=== PATIENT | male | born 1935 | race Caucasian/White ===

== ENCOUNTER 2016-12-26 17:35 | Inpatient (IN) | payer OTHER ==
[~2016-12-26] VITALS: Ht 167.6 cm; Wt 83.9 kg
[~2016-12-26 17:35] MED LIST: AGGRENOX 25 MG-1 CAP PO; ALLOPURINOL300 M1 PO; ARICEPT10 MG PO; CIPRO 500MG (E500 MG PO; CIPRO 500MG TA500 MG PO; CIPROFLOXACIN500 MG PO; FENOFIBRATE48 MG PO; FINASTERIDE5 MG PO; FLOMAX(MONOGRA0.4 MG PO; FUROSEMIDE20 MG PO; FUROSEMIDE40 M1 PO; GLIPIZIDE ER2.5 M1 PO; GLIPIZIDE5 MG PO; GLUCOPHAGE1000 MG PO; HYDRALAZINE HYD25 MG PO; LEVOTHROID0.05 MG PO; LOPRESSOR 25MG25 MG PO; METFORMIN ER500 MG PO; METOPROLOL SUCC25 MG PO; MOXIFLOXACIN H400 M2 PO; NAMENDA XR14 MG PO; NICARDIPINE PO; PRAVASTATIN SOD40 MG PO; PROSCAR5 MG PO; VITAMIN D50000 IU PO; ZYLOPRIM100 MG PO
--- NOTE | 2016-12-26 17:40 | NUR ---
PT IN RM BIBA DENIES ALL PAIN NO EVIDENCE OF DISTRESS. SWELLING AND DRAINAGE PRESENT TO BLE 2/2 CELLULITIS. VSS.
--- NOTE | 2016-12-26 18:18 | NUR ---
MD SABRINA TO BEDSIDE FOR PT EVAL.
--- NOTE | 2016-12-26 18:48 | NUR ---
MD DARREN AT BEDSIDE FOR PT EVAL.
--- NOTE | 2016-12-26 19:01 | ED ANKLE/FOOT INJURY COMPLAINT ---
History of Present Illness General Chief Complaint: Lower Extremity Injury Stated Complaint: BIBA FOR BILATERAL LOWER LEG ?SWELLING Source: family Exam Limitations: no limitations Vital Signs & Intake/Output Vital Signs & Intake/Output Vital Signs Date Time Temp Pulse Resp B/P B/P Pulse O2 O2 Flow FiO2 Mean Ox Delivery Rate 12/260 97.6 64 18 118/60 96 Room Air 12/265 97.1 70 18 125/58 96 Room Air 12/26 1944 Room Air 12/26 1941 97.0 75 16 123/60 98 Room Air 12/26 1740 97.7 77 18 154/69 97 Room Air Allergies Coded Allergies: Penicillins (SWELLING 05/26/16) Triage Note: PT IN RM BIBA DENIES ALL PAIN NO EVIDENCE OF DISTRESS. SWELLING AND DRAINAGE PRESENT TO BLE 2/2 CELLULITIS. VSS. Triage Nurses Notes Reviewed? yes HPI: 82 yo M brought in to the ED for evaluation of bilateral lower extremity edema and blisters. According to the family the patient has been having these problems for the past couple of weeks. He was evaluated at their PCP office a month ago and was advised to keep the blisters clean, dry and apply bacitracin and was given Lasix for the edema. However, his symptoms have been worsening over the past couple of days. Currently he also has an ulcer on his right dorsal ankle. (KRIS DAHL,[facility]) Reconcile Medications Allopurinol 300 MG TABLET 1 TAB PO DAILY GOUT (Reported) Ergocalciferol (Vitamin D2) (Vitamin D2) 50,000 UNIT CAPSULE 1 CAP PO EVERY 10 DAY SUPPLEMENT (Reported) Finasteride (Proscar) 5 MG TABLET 1 TAB PO QPM BL[facility] (Reported) Furosemide (Lasix) 40 MG TABLET 1 TAB PO BID HEART HEALTH (Reported) Glipizide (Glipizide ER) 2.5 MG TAB.ER.24 1 TAB PO BID DIABETES (Reported) Hydralazine HCl 25 MG TABLET 1 TAB PO BID HTN (Reported) Levothyroxine Sodium (Synthroid) 50 MCG TABLET 1 TAB PO DAILY THYROID ( Reported) Memantine HCl (Namenda XR) 14 MG CAP.SPR.24 1 CAP PO DAILY ALZHEIMERS ( Reported) Metformin HCl (Metformin HCl ER) 500 MG TAB.ER.24H 2 TAB PO BID DIABETES ( Reported) Metoprolol Succinate 25 MG TAB 1 TAB PO DAILY HTN (Reported) Nifedipine (Nifedipine ER) 30 MG TAB.ER.24 1 TAB PO DAILY HTN (Reported) Pravastatin Sodium (Pravachol) 40 MG TABLET 1 TAB PO DAILY HIGH CHOLESTROL ( Reported) Tamsulosin HCl (Flomax) 0.4 MG CAP.ER.24H 1 CAP PO QPM [facility] ( Reported) (LUIS BURGOS MD) Past History Travel History Traveled to [place] past 21 day No Medical History Any Pertinent Medical History? see below for history Neurological: Alzheimer's disease EENT: NONE Cardiovascular: CHF, hypertension Respiratory: NONE Gastrointestinal: NONE Hepatic: NONE Renal: NONE Musculoskeletal: NONE Psychiatric: NONE Endocrine: diabetes, hypothyroidism Blood Disorders: NONE Cancer(s): NONE LOCATION MAN/Reproductive: NONE History of MRSA: No History of VRE: No History of CDIFF: No Pneumonia Vaccine: 04/21/15 Surgical History Surgical History: non-contributory Psychosocial History Who do you live with Patient/Self Services at Home Home Health Aide What is your primary language Fijian Tobacco Use: Quit >30 days ago Family History Family History, If Any: Relation not specified for: *No pertinent family history Hx Contributory? No (SABRINA PONCE MD) Review of Systems Review of Systems Constitutional: Reports: no symptoms. Respiratory: Reports: no symptoms. Cardiovascular: Reports: no symptoms. GI: Reports: no symptoms. Genitourinary: Reports: no symptoms. Musculoskeletal: Reports: no symptoms. Skin: Reports: see HPI. (SABRINA PONCE MD) Review of Systems EENTM: Reports: no symptoms. Neurological/Psychological: Reports: no symptoms. Hematologic/Endocrine: Reports: no symptoms. Immunologic/Allergic: Reports: no symptoms. All Other Systems: Reviewed and Negative (LUIS BURGOS MD) Physical Exam Physical Exam General Appearance: well developed/nourished, no apparent distress Head: atraumatic, normal appearance Eyes: Bilateral: normal appearance. Ears, Nose, Throat: moist mucus membranes Cardiovascular/Respiratory: normal breath sounds Leg/Knee/Thigh Left: swelling, blisters on lower extremity Leg/Knee/Thigh Right: swelling, blisters and ulcer on right lower extremity (SABRINA PONCE MD) Physical Exam Neck: normal inspection, supple, full range of motion Back: normal inspection, normal range of motion Ankle Left: normal range of motion Ankle Right: normal range of motion Foot Left: normal range of motion Foot Right: normal range of motion Reflexes: 2+: knee (R), knee (L), ankle (R), ankle (L). Neuro/Vascular: normal motor function, normal sensation Tendon: normal tendon function Psychiatric: awake, alert, oriented x 3 (HIPONA ,LUIS) Progress Differential Diagnosis: cellulitis, peripheral edema, venous ulcers Plan of Care: Orders Procedure Date/time Status Consistent Carbohydrate 3 12/27 B Active CBC WITHOUT DIFFERENTIAL 12/27 599 Active BASIC ELECTROLYTES PLUS BUN&CR 12/27 599 Active Turn and Reposition 12/26 2230 Active Skin Integrity Protocol 12/26 2230 Active Skin/Pressure Ulcer Assess (Sk 12/26 2230 Active Vital Signs 12/26 2229 Active Teach/Educate 12/26 2229 Active Pain Treatment and Response 12/26 2229 Active Nutritional Intake, Monitor 12/26 2229 Active Isolation 12/26 2229 Active Intake & Output 12/26 2229 Active Patient Care Conference 12/26 2229 Active Activity/Ambulation 12/26 2229 Active FingerStick- Glucose 12/26 2124 Active Elevate 12/26 2124 Active Intake & Output 12/26 2114 Complete Pathway - chart 12/26 2106 Active Patient Data 12/26 2106 Active Code Status 12/26 2106 Active OXYGEN SETUP (GEN) 12/26 2037 Active Saline Lock 12/26 2037 Active Admit to inpatient 12/26 2037 Active Vital Signs 12/26 2037 Active Activity/Ambulation 12/26 2037 Complete Code Status 12/26 2037 Complete Patient Data 12/27 2015 Active Add-on Test (ER Only) 12/26 1940 Active B-TYPE NATRIURETIC PEP (BNP) 12/26 193 Complete COMPREHENSIVE METABOLIC PANEL 12/26 1856 Complete CBC WITHOUT DIFFERENTIAL 12/26 1856 Complete PT Evaluate & Treat 12/26 UNK Active House Staff 12/26 UNK Active Intake & Output 12/26 UNK Active Activity/Ambulation 12/26 UNK Active Current Medications Sig/Jimmie Start time Last Medication Dose Stop Time Status Admin Donepezil HCl 10 MG QPM 12/27 2200 AC (Aricept) Finasteride 5 MG QPM / 2200 AC (Proscar) Tamsulosin HCl 0.4 MG QPM / 2200 AC (Flomax) Pravastatin Sodium 40 MG 1700 12/27 1700 AC (Pravachol) Allopurinol 300 MG DAILY 12/27 1000 AC (Zyloprim) Dipyridamole/Aspirin 1 CAP BID 12/27 1000 AC (Aggrenox) Furosemide 20 MG DAILY 12/27 1000 AC (Lasix) Hydralazine HCl 25 MG BID 12/27 1000 AC (Apresoline) Memantine 5 MG BID 12/27 1000 AC (Namenda) Metoprolol Tartrate 25 MG DAILY 12/27 999 AC (Lopressor) Insulin Aspart 0 TIDAC 12/28 799 AC (NovoLOG) Levothyroxine Sodium 0.05 MG DAILY AC 12/27 07 AC (Synthroid) Clindamycin 300 MG Q6 12/26 2359 AC (Cleocin 150MG Cap) Enoxaparin Sodium 40 MG DAILY 12/26 2106 AC 12/26 (Lovenox) 2122 Laboratory Tests 12/26/16 1937: Anion Gap 14, Estimated GFR > 60, BUN/Creatinine Ratio 23.6, Glucose 213 H, Calcium 9.0, Total Bilirubin 0.3, AST 14 L, ALT 31, Alkaline Phosphatase 115, Haj-K-Csghsbnruyf Pept 177 H, Total Protein 6.9, Albumin 3.7, Globulin 3.2, Albumin/Globulin Ratio 1.2, CBC w Diff NO MAN DIFF REQ, RBC 3.47 L, MCV 91.4, MCH 29.1, RDW 15.7 H, MPV 6.9 L, Gran % 76.7 H, Lymphocytes % 16.4 L, Monocytes % 4.4, Eosinophils % 2.2, Basophils % 0.3, Absolute Granulocytes 8.3 H, Absolute Lymphocytes 1.8, Absolute Monocytes 0.5, Absolute Eosinophils 0.2, Absolute Basophils 0, PUBS MCHC 31.9 L Comments: 12/26/2016 7:26:22 PM 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 Labs pending. (DARREN DAHL,[facility]) Departure Departure Disposition: OTHER PYSCH Condition: Stable Clinical Impression Primary Impression: Ulcer Secondary Impressions: Peripheral edema Referrals: DOM MORA MD (PCP/Family) Departure Forms: Customer Survey General Discharge Information (KRIS DAHL,SABRINA) Admission Note Spoke With: KELSI CRAIG MD Documentation of Exam: Documentation of any treatments & extenuating circumstances including Concerns Regarding Discharge (functional status, medication knowledge or non-compliance, living conditions, etc.) that warrant an admission rather than observation: IV antibiotics serial lab exams medication adjustment IV diuresis continuing care discharge planning Resident Co-Sign Statement Statement: ED Attending supervision documentation- x I saw and evaluated the patient. I have also reviewed all the pertinent lab results and diagnostic results. I agree with the findings and the plan of care as documented in the Resident's documentation. [] I have reviewed the ED Record and agree with the Resident's documentation. [] Additions or exceptions (if any) to the Resident's note and plan are summarized below: [] (AUBREY DAHL,LUIS)
--- NOTE | 2016-12-26 19:41 | NUR ---
LAB SENT. LAV, BLUE, SST X2
[2016-12-26 19:52] LABS: ABSOLUTE BASOPHIL COUNT 0 /CUMM (0.0-0.2); ABSOLUTE EOSINOPHIL COUNT 0.2 /CUMM (0.0-0.7); ABSOLUTE GRANULOCYTE CT 8.3 /CUMM (1.4-6.5); ABSOLUTE LYMPH COUNT 1.8 /CUMM (1.2-3.4); ABSOLUTE MONOCYTE COUNT 0.5 /CUMM (0.10-0.60); BASOPHIL % 0.3 % (0.0-2.0); EOSINOPHIL % 2.2 % (0-5); GRANULOCYTE % 76.7 % (42.2-75.2); HEMATOCRIT 31.7 % (42-52); MEAN CORPUSCULAR HGB 29.1 PG (27.0-31.0); MEAN CORPUSCULAR HGB CONC 31.9 G/DL (33.0-37.0); MEAN CORPUSCULAR VOLUME 91.4 FL (80.0-94.0); MEAN PLATELET VOLUME 6.9 FL (7.4-10.4); PLATELET COUNT 224 /CUMM (130-400); RBC DISTRIBUTION WIDTH 15.7 % (11.5-14.5); RED BLOOD CELL CT 3.47 /CUMM (4.70-6.10); WHITE BLOOD CELL COUNT 10.8 /CUMM (4.8-10.8)
[2016-12-26] MEDS ORDERED: AGGRENOX 25 MG1 EACH PO (20:15)
--- NOTE | 2016-12-26 20:16 | History & Physical ---
DWIGHT DAHL,[facility] 12/26/16 2015: General Information and HPI MD Statement: I have seen and personally examined ALY KYLE and documented this H&P. The patient is a 81 year old M who presented with a patient stated chief complaint of [bilateral lower leg swelling and blisters]. Source of Information: patient, family Exam Limitations: dementia (parkinson's) History of Present Illness: Patient is a 81-year-old male with past medical history of Alzheimer's, CHF, cad s/p balloon angioplasty, hypertension, diabetes, bladder cancer s/p resection, BPH s/p TURP and hypothyroid presenting with worsening bilateral lower leg extremity. The history is mostly given by his two daughters. The patient's daughter states that the patient has had bilateral lower extremity edema and blisters for couple weeks. He was seen at the PCP about month ago who for an open sore on his left lower extremity. He was instructed to keep the site clean and dry, and apply bacitracin as needed. His PCP increased his lasix dose to 40 mg BID. He currently presents for a new right leg sore which has been bothering for the past few days. His daughters' stated that there is a foul-smelling discharge coming from the right medial ankle. The daughter states that she lives upstairs from the patient at home. His daughter states, the patient uses a walker at home but only ambulates to the bathroom. He sits in a chair with minimal leg elevation. The family states that the patient has been reluctant for medical follow-up. He was diagnosed with an aortic aneurysm in May 2016 and refused to follow-up with cardiology. He also has a basal cell carcinoma on the left side of his head he refused to see a parts salesperson for. The patient himself denies any pain, fevers, chills, nausea, or vomiting. The patient denies any numbness or tingling or pain. Allergies/Medications Allergies: Coded Allergies: Penicillins (SWELLING 05/26/16) Home Med list Allopurinol 300 MG TABLET 1 TAB PO DAILY GOUT (Reported) Ergocalciferol (Vitamin D2) (Vitamin D2) 50,000 UNIT CAPSULE 1 CAP PO EVERY 10 DAY SUPPLEMENT (Reported) Finasteride (Proscar) 5 MG TABLET 1 TAB PO QPM BLADDER HEALTH (Reported) Furosemide (Lasix) 40 MG TABLET 1 TAB PO BID HEART HEALTH (Reported) Glipizide (Glipizide ER) 2.5 MG TAB.ER.24 1 TAB PO BID DIABETES (Reported) Hydralazine HCl 25 MG TABLET 1 TAB PO BID HTN (Reported) Levothyroxine Sodium (Synthroid) 50 MCG TABLET 1 TAB PO DAILY THYROID ( Reported) Memantine HCl (Namenda XR) 14 MG CAP.SPR.24 1 CAP PO DAILY ALZHEIMERS ( Reported) Metformin HCl (Metformin HCl ER) 500 MG TAB.ER.24H 2 TAB PO BID DIABETES ( Reported) Metoprolol Succinate 25 MG TAB 1 TAB PO DAILY HTN (Reported) Nifedipine (Nifedipine ER) 30 MG TAB.ER.24 1 TAB PO DAILY HTN (Reported) Pravastatin Sodium (Pravachol) 40 MG TABLET 1 TAB PO DAILY HIGH CHOLESTROL ( Reported) Tamsulosin HCl (Flomax) 0.4 MG CAP.ER.24H 1 CAP PO QPM BLADDER HEALTH ( Reported) Past History Travel History Traveled to [place] past 21 day No Medical History Neurological: Alzheimer's disease EENT: NONE Cardiovascular: CHF, hypertension, aortic aneurysm w/o f/u, TIA, CAD s/p balloon angioplasty stent Respiratory: NONE Gastrointestinal: NONE Hepatic: NONE Renal: bladder cancer s/p tumor resection, BPH s/p TURP 2013 Musculoskeletal: gout Psychiatric: NONE Endocrine: diabetes, hypothyroidism Blood Disorders: NONE Cancer(s): NONE 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 child Services at Home: Home Health Aide Primary Language: Yi Smoking Status: Former Smoker (120 pack year. quit 30+ years) ETOH Use: denies use Illicit Drug Use: denies illicit drug use Functional Ability ADLs Independent: dressing, eating. Needs Assist: toileting, bathing. Ambulation: walker IADLs Needs Assist: shopping, housework, finances, food prep, telephone, transportation, medication admin. Review of Systems Review of Systems Constitutional: Denies: chills, fever. Cardiovascular: Denies: chest pain. Respiratory: Denies: short of breath. GI: Denies: nausea, vomiting. Skin: Reports: erythema, lesions, rash. Exam & Diagnostic Data Last 24 Hrs of Vital Signs/I&O Vital Signs Date Time Temp Pulse Resp B/P B/P Pulse O2 O2 Flow FiO2 Mean Ox Delivery Rate 12/26 2199 97.6 64 18 118/60 96 Room Air 12/26 2034 97.1 70 18 125/58 96 Room Air 12/27 1943 Room Air 12/26 1941 97.0 75 16 123/60 98 Room Air 12/26 1740 97.7 77 18 154/69 97 Room Air Intake & Output 12/27 0800 12/27 0000 12/26 1600 Intake Total Output Total Balance Patient 200 lb Weight Weight Reported by Patient Measurement Method Physical Exam General Appearance Alert, Cooperative, No Acute Distress, NOT ORIENTATED Skin diffuse erythema of bilateral lower extremities, tenderness irregular less than 1 cm fluid-filled blisters, right medial ulcers with serosanguineous dischargeand foul smell, basal cell carcinoma on left hemisphere of his head, tenderness to palpation of ulcer site Skin Temp/Moisture Exam: Warm/Dry Neck Supple, No JVD Lymphatic no lymphadenopathy of lower extremities Cardiovascular very fine mitral valve murmur, no JVD Lungs expiratory wheezing,no crackles Abdomen Normal Bowel Sounds, Soft, No Tenderness, No Hepatospenomegaly Neurological Sensation Intact, unable to fully examine Babinski reflex Extremities 3+ edema from toes to mid tibia bilaterally Vascular unable to appreciate pedal or posterior tibial pulses due to edema, capillary refill on side of big toe is less than 2 seconds Last 24 Hrs of Labs/Danny: Laboratory Tests 12/26/161936: Anion Gap 14, Estimated GFR > 60, BUN/Creatinine Ratio 23.6, Glucose 213 H, Calcium 9.0, Total Bilirubin 0.3, AST 14 L, ALT 31, Alkaline Phosphatase 115, Fch-M-Iyjmazycxkr Pept 177 H, Total Protein 6.9, Albumin 3.7, Globulin 3.2, Albumin/Globulin Ratio 1.2, CBC w Diff NO MAN DIFF REQ, RBC 3.47 L, MCV 91.4, MCH 29.1, RDW 15.7 H, MPV 6.9 L, Gran % 76.7 H, Lymphocytes % 16.4 L, Monocytes % 4.4, Eosinophils % 2.2, Basophils % 0.3, Absolute Granulocytes 8.3 H, Absolute Lymphocytes 1.8, Absolute Monocytes 0.5, Absolute Eosinophils 0.2, Absolute Basophils 0, PUBS MCHC 31.9 L Assessment/Plan Assessment: Patient is a 81-year-old male with past medical history of Alzheimer's, CHF, cad s/p balloon angioplasty, hypertension, diabetes, bladder cancer s/p resection, BPH s/p TURP and hypothyroid presenting with worsening bilateral lower leg extremity most likely secondary to venous congestion. The ulcer on his right medial malleolus is most likely secondary infection on top of the vascular congestion. As Ranked By This Provider Problem List: 1. Bilateral lower extremity edema Assessment/Plan Patient is a 81-year-old male with past medical history of Alzheimer's, CHF, cad s/p balloon angioplasty, hypertension, diabetes, bladder cancer s/p resection, BPH s/p TURP and hypothyroid presenting with worsening bilateral lower leg extremity. The patient was afebrile with a WBC of 10.8. The patient's albumin at the time of admission was 3.7. His AST:14, ALT:31. Hepatic cause of his edema is less likely on the differential. His BNP was 177, JVD was absent and no crackles on exam, thus making CHF lower on the differential. The blisters on exam resemble tends water-filled blisters seen in vascular congestion. The patient's daughter also reports that he is not very mobile and mainly ambulates with his walker just to use the bathroom. He sits in a chair for most of the day with minimal white count elevation. The patient is not experiencing any pain. On physical exam the medial malleolus ulcer does have a foul smell. It did not have any purulent discharge but did have serosanguineous discharge. We will begin treating the patient for clindamycin to cover for MRSA and staph. We will continue furosemide to alleviate his edema. Strict I/O monitoring to limit edema. Wound care consult will be placed. Due to the patient's chronic immobility we will also get a bilateral venous Doppler ultrasound to rule out any DVTs. -Continue Lasix 20 mg IV daily for 2 days -Follow-up bilateral venous Doppler ultrasound -Continue clindamycin 300 mg by mouth every 6 hours -Occupational therapy eval and treatment -Follow-up CBC and BMP -Elevation of legs as tolerated -Follow-up blood cultures -strict I/O -wound care consult -OT/PT jose 2. Dementia Assessment/Plan Patient has a history of Alzheimer's. We will continue him on his home medications. -Donepezil 10 mg by mouth at nighttime -Memantine 5 mg by mouth twice a day -Watch for hospital acquired delirium and sundowning. Antipsychotics should be given if needed 3. Hypothyroidism Assessment/Plan The patient has a history of comparison. We'll continue him on his home dosage of levothyroxine. -Continue levothyroxine 0.05 mg by mouth daily 4. BPH (benign prostatic hyperplasia) Assessment/Plan The patient has a history of BPH status post TURP. We will continue him on his medications. -Finasteride 5 mg by mouth at nighttime -Tamsulosin 0.4 mg by mouth at nighttime 5. CAD (coronary artery disease) Assessment/Plan The patient has a history of CAD status post balloon angioplasty stent. We will continue him on his medication. -Pravastatin 40 mg by mouth daily -Metoprolol 25 mg by mouth daily -Dipyridamole w/ aspirin 1 By mouth twice a day 6. Gout Assessment/Plan The patient has history of self. We'll continue him on his home medications. -Continue allopurinol 300 mg by mouth daily 7. Diabetes mellitus type 2 Assessment/Plan The patient is a type II diabetic. Will hold his home medications and start him on NovoLog sliding scale. -Continue NovoLog sliding scale and fingerstick glucose 8. HTN (hypertension) Assessment/Plan Patient has history of hypertension. Will continue him on medication. -Hydralazine 25 mg by mouth twice a day 9. DVT prophylaxis Assessment/Plan Continue heparin 5000 units subcutaneous every 8 hours 10. DNR (do not resuscitate) Assessment/Plan DNR/DNI Core Measures/Miscellaneous Acute Coronary Syndrome ACS Diagnosis: No Cerebrovascular Accident CVA/TIA Diagnosis: No Congestive Heart Failure CHF Diagnosis: No VTE (View Protocol) VTE Risk Factors: Acute medical illness, Age > 40 [facility] prophylaxis d/t: LE Edema No VTE Pharm Prophylaxis d/t: No contraindications VTE Diagnosis: No VTE Type: NONE VTE Confirmed by (Test): NONE Sepsis (View Protocol) Severe Sepsis Present: No Septic Shock Septic Shock Present: No Miscellaneous Documentation Attending Case Discussed With: KELSI CRAIG MD Primary Care Physician: DOM MORA MD Level of Patient Care: General Medicine [facility]ALONDA [facility] 12/26/16 2133: General Information and HPI Allergies/Medications Compliance With Home Meds: GOOD Core Measures/Miscellaneous Acute Coronary Syndrome ACS Diagnosis: No Cerebrovascular Accident CVA/TIA Diagnosis: No Congestive Heart Failure CHF Diagnosis: No VTE (View Protocol) VTE Risk Factors: Acute medical illness, Age > 40 No Mech VTE prophylaxis d/t: No contraindications No VTE Pharm Prophylaxis d/t: No contraindications VTE Diagnosis: No VTE Type: NONE VTE Confirmed by (Test): NONE Miscellaneous Documentation Attending Case Discussed With: KELSI CRAIG MD Primary Care Physician: DOM MORA MD Patient sees these Specialists NA Level of Patient Care: General Medicine Resident Review Statement Resident Statement: examined this patient, discussed with education intern, agreed with education intern, discussed with family Other Findings: Mr. Kyle is an 81-year-old gentleman with significant past medical history of CAD status post balloon angioplasty many years ago per the family, low-grade bladder cancer status post tumor resection with recurrence and BPH status post transurethral resection of the prostate in 2013, hypothyroidism, diabetes, gout, multiple transient ischemic attacks [followed by Dr. Alcala] and dementia last seen at [facility] to 12/26/2015 where he was he was treated for hypoxemic respiratory failure presents to the emergency department on 12/26/2016 complaining worsening bilaterral lower extremity edema and purulent discharge from right leg ulcer. Patient's daughters Zaida and Michela who were present during the time of our interaction states that over the last 4 weeks his lower extremity edema has continued to worsen. Patient last saw Roshni Mora MD who increased the patient's Lasix dose to 40 mg twice a day. He was also given prescription for bacitracin to use when necessary. Originally the patient did have left-sided lower extremity ulcers which seemed to responded to the bacitracin however a few days ago he developed a right ulcer. This ulcer has continued to weep. Discharge is purulent and foul-smelling which has been ongoing over the last 48 hours. The patient is currently pain-free and states that he has been able to ambulate using a walker. ROS: Patient denies any fever, chills, nausea, vomiting. E:HEENT: extraocular motion intact, no nystagmus. Nose is atraumatic. External auditory canal and Tympanic membranes clear. Pharynx normal. No swelling or edema. Neck: Supple, no lymphadenopathy, normal range of motion without pain or tenderness Skin: Bilaterall lower extremity edema. Multiple ulcers located in LLE, fluid filled, non tender. RLE, mildly tender, multiple blisters present, notable for some open areas, crusted areas present, weeping, foul smelling discharge present. Cardiovascular: Regular rate and rhythm no murmurs rubs or gallops.?Murmur Respiratory: Chest nontender. No respiratory distress. Breath sounds clear to auscultation bilaterally Abdomen: Soft, nontender nondistended, no appreciable organomegaly. Normal bowel sounds. No ascites, no rebound or guarding. Extremity: No edema, no calf tenderness to palpation, normal and equal pulses. No crepitus or fluctuation. Neuro: Alert not oriented to time or place of person. Labs: At the time of admission the patient had a temperature of 97.7. Pulse rate 77. Respiratory rate 18. Blood pressure 154/69. He was saturating 97% on room air. His WBC count of 10.8. H&H was 10.1 and 31.7 respectively. Platelets 224. Sodium 140, potassium 4.2. The urine creatinine 26 and 1.1 respectively. Glucose 213. ProBNP 177. Right lower extremity cellulitis. Leg did have cardinal signs of dolor, calor, rubor. Does not have any evidence of trauma or penetrating injury. Cellulitis is largely been caused due to chronic venous stasis in the setting of prolonged immobility. Patient has minimal ambulation at home. At the time of discharge May consider visiting nurse to encourage daily exercise and encourage movement. Clindamycin 300 mg every 6. Encourage elevation of lower extremities. Strict I's and O's Wound care consultation in Am. Wet to dry dressing. Blood cultures. Bilateral lower extremity edema. Given prolonged immobility we will Rule out DVT with a lower extremity Doppler in the a.m. IV Lasix 20 mg the next 2 days. If patient adequately diuresed may consider going back to by mouth Lasix. Encourage ambulation and movement. Physical therapy evaluation in a.m. History of coronary artery disease. Continue metoprolol 25 mg twice a day. Continue Aggrenox 25 mg twice a day. Patient recently started on nifedipine extended release osmotic release daily. Please confirm dose of this medication with patient's family as they were unsure of this medication. History of diabetes. We will hold off oral hypoglycemics upon admission. NovoLog sliding scale. Maintain blood sugar between 120 to 140. History of hypothyroidism Continue levothyroxine 50 g. May consider addition of TSH and free T4. History of dementia. Continue home medications. DVT prophylaxis Heparin Diet Consistent carbohydrate 3. DNR/DNI. RAFAKELSI CLOUD 12/26/16 2341: Attending MD Review Statement Attending Statement Attending MD Statement: examined this patient, discuss w/resident/PA/AIR LIAISON AND SPECIAL STAFF, agreed w/resident/PA/AIR LIAISON AND SPECIAL STAFF, discussed with family, reviewed EMR data (avail), reviewed images, amended to note Attending Assessment/Plan: CC: Swelling and drainage from lower extremity PMH: CAD S/P stent, bladder cancer, BPH S/P TURP, hypothyroidism, DM, gout, TIA, dementia, aortic aneurysm History is provided by patient's daughter, patient appears disoriented and does not provide any details. Patient lives alone but his daughter lives upstairs, looks after him including cooking. Since one month daughters have noticed worsening leg swelling, last few days the skin is getting more blistery and they noticed discharge. Patient was started on increased dose of Lasix by primary care physician approximately 3 weeks back, without much relief. Daughters have not noticed any fever, shortness of breath, worsening cough, abdominal distention, chest pain or tightness at home. History of falls or loss of consciousness. Patient refuses to go to different doctors, they have not seen any ceramic coater, did not follow-up for aortic aneurysm, did not follow-up with parts salesperson for skin lesion on the scalp. Daughters state that he is getting more forgetful and forgetting one daughter's name as well. Vitals: Afebrile, pulse in 70s, RR 18, blood pressure 154/69, saturating well on room air. On exam: A NOT ORIENTED, cooperative, no appropriate answers, no acute distress, neck supple, JVD normal, no cervical or inguinal lymphadenopathy, mucosa moist, patient does not lift his right lower extremity against gravity (does not mention pain or weakness), bilateral lower extremity edema, multiple blisters on lateral aspect of left lower extremity, and right lower extremity. Right lower extremity has multiple small open areas with crusted pus around, tender to touch , no crepitus or fluctuation, no ankle swelling. Ankle movement intact. Stasis changes bilateral lower extremities, CVS: S1-S2, RRR, ?2/6 diastolic murmur in mitral area? RS: Clear to auscultate bilaterally, no crackles or wheezing. Abdomen: Soft, NT, ND, bowel sounds present. Patient refused for examination of scrotum. Labs: WBC 10.8, neutrophils 78%, hemoglobin 10.1, glucose 213, otherwise BMP and LFT unremarkable. A and P 81-year-old male with a history of dementia and poor historian with multiple comorbidities was brought in by daughters for worsening leg swelling since one month, last few days the skin is getting more blistery and they noticed discharge. His Lasix dose was increased outpatient without much relief. On examination patient has chronic stasis changes bilateral lower extremity with secondary cellulitis changes on right lower extremity with honey crusted discharge with no fluctuation or crepitus. No significant fever or leukocytosis no evidence of JVD or crackles on examination. At home patient mostly sits on a chair without leg elevation which might be contribution to the problem. Patient was previously investigated and month of May for heart failure, patient had mild valvular disease but no signs suggestive of congestive heart failure. ` Bilateral lower extremity edema ` Right lower extremity secondary cellulitis ` History of CAD, hypothyroidism, DM, gout, TIA, dementia aortic aneurysm - Admit to general med - Continue leg elevation - Strict I's and O's - IV Lasix 20 mg daily for 2 days - Continue by mouth clindamycin - OT PT evaluation - Blood culture - Wound care consult - Bilateral lower extremity DVT Doppler - Hold home doses of metformin, glipizide, continue sliding scale insulin, continue rest of his home medication include hydralazine, allopurinol, never dependent, tamsulosin, donepezil, finasteride, Aggrenox, Namenda, Synthroid, pravastatin and metoprolol - DVT prophylaxis with heparin - Adequate pain control - Watch for hospital acquired delirium and sundowning given extensive history of dementia.
[2016-12-26] MEDS ORDERED: FLOMAX0.4 M1 PO (20:23)
[2016-12-26] MEDS ORDERED: PRAVACHOL40 M1 PO (20:27)
[2016-12-26] MEDS ORDERED: PROSCAR5 M1 PO (20:33)
[2016-12-26] MEDS ORDERED: LASIX40 M1 PO (20:37)
[2016-12-26] MEDS ORDERED: HYDRALAZINE HCL25 M1 PO ×2 (20:39→20:42)
[2016-12-26] MEDS ORDERED: SYNTHROID50 MCG PO (20:50)
--- NOTE | 2016-12-26 20:50 | NUR ---
PT TO ROOM 209 BED 1
[2016-12-26] MEDS ORDERED: NIFEDIPINE ER30 M2 PO (20:53)
[2016-12-26] MEDS ORDERED: VITAMIN D250000 UNIT PO (20:56)
[2016-12-26] MEDS ORDERED: NAMENDA XR14 M1 PO (21:01)
[2016-12-26] MEDS ORDERED: METFORMIN HCL500 M4 PO (21:02)
[2016-12-26] MEDS ORDERED: METOPROLOL SUCC25 M1 PO (21:03)
--- NOTE | 2016-12-26 21:17 | NUR ---
HOUSE STAFF IN ROOM FOR EVALUATION. PT IN CHAIR AT THIS TIME. PER DR MCLEOD, HOLD OFF ON LOVENOX AT THIS TIME UNTIL TOLD TO ADMINISTER
--- NOTE | 2016-12-26 21:20 | NUR ---
REPORT GIVEN TO NELLY ACUNA ON 2NB
--- NOTE | 2016-12-26 21:24 | NUR ---
MEDICATED WITH LOVENOX PER eMAR AND CONFIRMATION TO GIVE BY HARSHA DAHL
[2016-12-26 22:00] VITALS: BP 118/60
--- NOTE | 2016-12-26 23:13 | NUR ---
NURSING NOTE: LATE ENTRY. PT ARRIVED TO FLOOR AT 2200 BY WHEELCHAIR FROM EMERGENCY DEPARTMENT. VITAL SIGNS- T: 97.6 AXILLARY, HR: 64, BP:118/60, 02: 96 ON ROOM AIR, NO DISTRESS NOTED, RR:18, PT DENIES PAIN. PT IS ALERT TO PERSON BUT SOMETIMES PLACE. PT HAS HISTORY OF DEMENTIA. FORGETFUL @ TIMES. AT BASELINE PER PTS DAUGHTERS PT AMBULATES W/ ROLLING WALKER BUT IS UNSTEADY. PTS GAIT OBSERVED AND PT IS UNSTEADY ON HIS FEET. ROLLING WALKER PLACED IN PTS ROOM. PT EVAL PLACED FOR AM. URINAL PLACED AT BEDSIDE. PER DAUGHTERS PT CAN BE INCONTINENT @ TIMES. BLISTERS AND +2 PITTING EDEMA NOTED TO PTS BLLE DEMAR. OPEN AREA TO R ANKLE W/ DRESSING THAT IS C/D/I. PER DAUGHTERS PT HAS HAD SWELLING TO HIS LEGS IN PAST BUT THE BLISTERS/CELLULITIS IS NEW FOR HIM. SEE SKIN MAN. PT HAS AN ABRASION TO L SIDE OF HIS HEAD LOG WASHER. PTS DAUGHTERS NOT ABLE TO STATE HOW HE GOT THAT. PTS DAUGHTERS STATE THAT HE HAD A PREVIOUS HOME HEALTH AID WHEN PT WAS IN THE HOSPITAL FOR PNEUMONIA BUT NO LONGER RECEIVES SERVICES BUT ARE TRYING TO GET HIM SERVICES AT HOME. PT LAST BM THIS AM. PT STARTED ON PO ABX, IV LASIX FOR HISTORY OF CHF. FALL PRECAUTIONS IN PLACE. PT SHOWN HOW TO USE CALL LIGHT SYSTEM. INFO PACKET GIVEN. NO FURTHER ORDERS FROM MD AT THIS TIME. WILL CONTINUE TO MONITOR.
--- NOTE | 2016-12-26 23:43 | Admission Certification ---
Admission Certification Certification Statement - As attending physician, I certify that at the time of - admission, based on clinical presentation, severity of - symptoms, need for further diagnostic testing and - therapeutic interventions, and risk of adverse outcomes - without in-hospital treatment, in my clinical assessment, - this patient requires an acute hospital stay for a minimum - of two nights or longer. I have also considered psychsocial - factors such as support system, advanced age, financial - issues, cognitive issues, and failed out-patient treatments, - past re-admission history, safety of patient, and lack of - compliance as applicable. Specific rationale supporting this admission is: Right lower extremity cellulitis, bilateral lower extremity edema
[2016-12-27 06:39] VITALS: BP 118/66
[2016-12-27 08:15] LABS: ABSOLUTE BASOPHIL COUNT 0 /CUMM (0.0-0.2); ABSOLUTE EOSINOPHIL COUNT 0.2 /CUMM (0.0-0.7); ABSOLUTE MONOCYTE COUNT 0.5 /CUMM (0.10-0.60); BASOPHIL % 0.3 % (0.0-2.0); EOSINOPHIL % 1.6 % (0-5); HEMATOCRIT 31.2 % (42-52); MEAN CORPUSCULAR HGB 29.5 PG (27.0-31.0); MEAN CORPUSCULAR HGB CONC 32.1 G/DL (33.0-37.0); MEAN CORPUSCULAR VOLUME 92.2 FL (80.0-94.0); MEAN PLATELET VOLUME 7.3 FL (7.4-10.4); PLATELET COUNT 205 /CUMM (130-400); RBC DISTRIBUTION WIDTH 15.8 % (11.5-14.5); RED BLOOD CELL CT 3.39 /CUMM (4.70-6.10); WHITE BLOOD CELL COUNT 9.7 /CUMM (4.8-10.8)
--- NOTE | 2016-12-27 09:25 | PN- Housestaff ---
PÉREZCHERELLEDede,[facility] 12/27/16 0924: Subjective Follow-up For: -B/L LE cellulitis -B/L LE edema Complaints: no complaints Subjective: Patient seen and examined, he looks confused, denies any complaint. Vitals stable. No events overnight. Review of Systems Constitutional: Reports: no symptoms. EENTM: Reports: no symptoms. Cardiovascular: Reports: no symptoms. Respiratory: Reports: no symptoms. Gastrointestinal: Reports: no symptoms. Musculoskeletal: Reports: see HPI. Objective Last 24 Hrs of Vital Signs/I&O Vital Signs Date Time Temp Pulse Resp B/P B/P Pulse O2 O2 Flow FiO2 Mean Ox Delivery Rate 12/27 1002 79 118/66 12/27 1002 79 118/66 / 0639 97.7 79 20 118/66 95 / 2200 97.6 64 18 118/60 96 Room Air 12/26 2035 97.1 70 18 125/58 96 Room Air 12/26 1944 Room Air 12/26 1942 97.0 75 16 123/60 98 Room Air 12/26 1740 97.7 77 18 154/69 97 Room Air Intake & Output 12/27 1600 12/27 0800 12/27 0000 Intake Total Output Total 425 Balance -425 Output, Urine 425 Patient 200 lb Weight Weight Reported by Patient Measurement Method Physical Exam General Appearance: Cooperative, No Acute Distress Skin: Open wound on the right ankle. Smelly HEENT: Atraumatic, PERRLA Cardiovascular: Regular Rate, Normal S1, Normal S2 Lungs: Clear to Auscultation, Normal Air Movement Abdomen: Normal Bowel Sounds, Soft, No Tenderness Extremities: +2 edema Vascular: Normal Pulses, Pulses Symmetrical Current Medications: Current Medications Sig/Jimmie Start time Last Medication Dose Route Stop Time Status Admin Acetaminophen 650 MG Q6P PRN 12/27 0415 AC PO Acetaminophen/ 1 TAB Q6P PRN 12/27 0415 AC Hydrocodone Bitart PO Allopurinol 300 MG DAILY 12/27 1000 AC 12/27 PO 1002 Clindamycin 300 MG Q6 12/26 2359 AC 12/27 PO 0524 Dipyridamole/Aspirin 1 CAP BID 12/27 1000 AC 12/27 PO 1002 Donepezil HCl 10 MG QPM 12/27 2200 AC PO Enoxaparin Sodium 0 .STK-MED ONE 12/26 2122 DC SC Enoxaparin Sodium 40 MG DAILY 12/26 2106 DC 12/26 SC 2122 Finasteride 5 MG QPM 12/27 2200 AC PO Furosemide 20 MG DAILY 12/27 1000 AC 12/27 IV 1002 Heparin Sodium 5,000 UNIT Q8 12/27 0600 AC (Porcine) SC Hydralazine HCl 25 MG BID 12/27 1000 AC 12/27 PO 1002 Insulin Aspart 0 TIDAC 12/28 799 AC 12/27 SC 0930 Levothyroxine Sodium 0.05 MG DAILY AC 12/27 699 AC 12/27 PO 0524 Memantine 5 MG BID 12/27 1000 AC 12/27 PO 1002 Metoprolol Tartrate 25 MG DAILY 12/27 1000 AC 12/27 PO 1002 Oxycodone/ 2 TAB Q6P PRN 12/27 0415 AC Acetaminophen PO Pravastatin Sodium 40 MG 1700 12/27 1700 AC PO Tamsulosin HCl 0.4 MG QPM 12/27 2200 AC PO Last 24 Hrs of Lab/Danny Results Last 24 Hrs of Labs/Mics: Laboratory Tests 12/27/16 0645: Anion Gap 9, Estimated GFR > 60, BUN/Creatinine Ratio 23.0, CBC w Diff NO MAN DIFF REQ, RBC 3.39 L, MCV 92.2, MCH 29.5, RDW 15.8 H, MPV 7.3 L, Gran % 72.0, Lymphocytes % 20.8, Monocytes % 5.3, Eosinophils % 1.6, Basophils % 0.3, Absolute Granulocytes 7.0 H, Absolute Lymphocytes 2.0, Absolute Monocytes 0.5, Absolute Eosinophils 0.2, Absolute Basophils 0, PUBS MCHC 32.1 L 12/26/16 1937: Anion Gap 14, Estimated GFR > 60, BUN/Creatinine Ratio 23.6, Glucose 213 H, Calcium 9.0, Total Bilirubin 0.3, AST 14 L, ALT 31, Alkaline Phosphatase 115, Jzl-S-Ftiwwbjkefm Pept 177 H, Total Protein 6.9, Albumin 3.7, Globulin 3.2, Albumin/Globulin Ratio 1.2, CBC w Diff NO MAN DIFF REQ, RBC 3.47 L, MCV 91.4, MCH 29.1, RDW 15.7 H, MPV 6.9 L, Gran % 76.7 H, Lymphocytes % 16.4 L, Monocytes % 4.4, Eosinophils % 2.2, Basophils % 0.3, Absolute Granulocytes 8.3 H, Absolute Lymphocytes 1.8, Absolute Monocytes 0.5, Absolute Eosinophils 0.2, Absolute Basophils 0, PUBS MCHC 31.9 L Microbiology 12/27 0700 BLOOD: Blood Culture - RECD 12/27 0645 BLOOD: Blood Culture - RECD Assessment/Plan Assessment: Mr. Burr is an 81-year-old gentleman with significant past medical history of CAD status post balloon angioplasty many years ago per the family, low-grade bladder cancer status post tumor resection with recurrence and BPH status post transurethral resection of the prostate in 2013, hypothyroidism, diabetes, gout, multiple transient ischemic attacks [followed by Dr. Alcala] and dementia presented to the emergency department on 12/26/2016 complaining worsening bilaterral lower extremity edema and purulent discharge from right leg ulcer admitted for right lower extrimity cellulitis and edema. Right lower extremity cellulitis. Will continue Clindamycin 300 mg every 6. Encourage elevation of lower extremities. Strict I's and O's Wound care consultation in Am. Wet to dry dressing. Blood cultures F/U. Bilateral lower extremity edema. Patient ruled out for DVT. LE doppler showed no dvt IV Lasix 20 mg the next 2 days. If patient adequately diuresed may consider going back to by mouth Lasix. Encourage ambulation and movement. Physical therapy evaluation in a.m. History of coronary artery disease. Continue metoprolol 25 mg twice a day. Continue Aggrenox 25 mg twice a day. Patient recently started on nifedipine extended release osmotic release daily. Please confirm dose of this medication with patient's family as they were unsure of this medication. History of diabetes. We will hold off oral hypoglycemics upon admission. NovoLog sliding scale. Maintain blood sugar between 120 to 140. History of hypothyroidism Continue levothyroxine 50 g. May consider addition of TSH and free T4. History of dementia. Continue home medications. DVT prophylaxis Heparin Diet Consistent carbohydrate 3. The patient is a DNR/DNI. Problem List: 1. Diabetes 2. Bilateral lower extremity edema 3. Ulcer Pain Ratin Pain Location: - Pain Goal: Remain pain free Pain Plan: - Tomorrow's Labs & Rationales: cbc, bep DVT/Prophylaxis: pharmacological NANY DAHL,TERRELL 12/27/16 1311: Attending MD Review Statement Attending Statement Attending MD Statement: examined this patient, discuss w/resident/PA/FACILITY MAINTENANCE HELPER, agreed w/resident/PA/FACILITY MAINTENANCE HELPER, discussed with family, reviewed EMR data (avail), discussed with nursing, amended to note Attending Assessment/Plan: Patient seen and examined. Case discussed with family at bedside. Unable to obtain any significant for history from the patient due to his dementia. Family reports that lower extremity swelling is getting better. On examination he has mild erythema from the mid legs down to the ankle. He has some open areas on the right leg. Legs are nontender. Recommendations: -Continue IV antibiotic therapy with Unasyn. -Continue leg elevation. -Wound care consult in the a.m. -Transition patient back to his home dose of Lasix.
--- NOTE | 2016-12-27 10:55 | ULTRASOUND REPORT ---
EXAMINATION: US TRIPLEX OF LOWER EXTREMITIES, BILATERAL CLINICAL INFORMATION: Lower extremity edema/swelling. COMPARISON: 05/27/2016 TECHNIQUE: Color-flow triplex imaging with spectral analysis and compression Doppler were performed on the lower extremities. FINDINGS: The common femoral vein is compressible and exhibits a normal phasic waveform, bilaterally; this suggests that the iliac veins are widely patent above. Within each proximal thigh, the visualized profunda femoris vein is patent. The visualized greater saphenous vein and saphenofemoral junction are normal, bilaterally. Superficial femoral vein is patent in the proximal, mid and distal aspect of each thigh. Popliteal vein appears normal to the level of the trifurcation, bilaterally, and the visualized calf veins are unremarkable. No evidence of Torres's cyst. IMPRESSION: No evidence of deep vein thrombosis in either lower extremity.
[2016-12-27 14:26] VITALS: BP 114/60
[2016-12-27 22:03] VITALS: BP 140/78
[2016-12-28 06:56] VITALS: BP 164/72
[2016-12-28 08:12] LABS: ABSOLUTE BASOPHIL COUNT 0 /CUMM (0.0-0.2); ABSOLUTE EOSINOPHIL COUNT 0.2 /CUMM (0.0-0.7); ABSOLUTE GRANULOCYTE CT 7.7 /CUMM (1.4-6.5); ABSOLUTE LYMPH COUNT 1.8 /CUMM (1.2-3.4); ABSOLUTE MONOCYTE COUNT 0.5 /CUMM (0.10-0.60); BASOPHIL % 0.3 % (0.0-2.0); EOSINOPHIL % 1.7 % (0-5); GRANULOCYTE % 75.7 % (42.2-75.2); HEMATOCRIT 31.5 % (42-52); MEAN CORPUSCULAR HGB 29.2 PG (27.0-31.0); MEAN CORPUSCULAR HGB CONC 31.5 G/DL (33.0-37.0); MEAN CORPUSCULAR VOLUME 92.5 FL (80.0-94.0); MEAN PLATELET VOLUME 7.4 FL (7.4-10.4); PLATELET COUNT 198 /CUMM (130-400); RBC DISTRIBUTION WIDTH 15.7 % (11.5-14.5); RED BLOOD CELL CT 3.41 /CUMM (4.70-6.10); WHITE BLOOD CELL COUNT 10.2 /CUMM (4.8-10.8)
[2016-12-28 08:54] VITALS: BP 124/60
--- NOTE | 2016-12-28 11:59 | PN- Housestaff ---
JACK DAHL,MELISSA 12/28/16 1158: Subjective Follow-up For: LE cellulitis, LE edema Subjective: I saw and examined pt today. No acute overnight events. Denied pain in legs, chest pain, SOB, fever, chills, n/v. Review of Systems Constitutional: Denies: see HPI. Cardiovascular: Denies: see HPI. Respiratory: Denies: see HPI. Gastrointestinal: Denies: see HPI. Musculoskeletal: Denies: see HPI. Objective Last 24 Hrs of Vital Signs/I&O Vital Signs Date Time Temp Pulse Resp B/P B/P Pulse O2 O2 Flow FiO2 Mean Ox Delivery Rate 12/28 1808 144/70 12/28 1423 98.1 70 20 130/54 95 Room Air 12/28 1044 120/64 12/28 1033 Room Air 12/28 1028 Room Air 12/28 0854 124/60 12/28 0656 98.2 88 20 164/72 96 12/28 0655 88 164/72 12/27 2203 97.6 74 19 140/78 95 12/27 2131 74 140/74 12/27 2130 74 140/78 Intake & Output 12/28 1600 10 0800 12/28 0000 Intake Total 1380 100 100 Output Total 450 Balance 930 100 100 Intake, IV 0 Intake, Oral 1380 100 100 Number 0 Bowel Movements Output, Urine 450 Physical Exam General Appearance: Alert, Cooperative, No Acute Distress Skin: bilateral lower extremity edema 1+, erythema, mild tenderness to palpation. RLE covered in dry dressing, has open, oozing blisters. LLE has no open/infected blisters. Cardiovascular: Regular Rate, Normal S1, Normal S2 Lungs: Clear to Auscultation Abdomen: Normal Bowel Sounds, Soft, No Tenderness Assessment/Plan Assessment: Pt is an 81 y/o male with PMH of CAD s/p balloon angioplasty, bladder cancer s/p resection w/recurrence, BPH s/p TURP (2013), hypothyroid, DM, multiple TIAs, dementia presented to ED with worsening bilateral LE edema and discharge from RLE. Admitted to general medicine for management of the followin. Right LE Cellulitis * pt appears to be improving on clindamycin 300mg q6 PO - afebrile, WBC remains normal, RLE tenderness and erythema less today - will continue on same antibiotic for a complete 7 day course - wound care consulted - daily wet to dry dressing changes - blood cultures negative to date 2. Bilateral LE Edema r/o DVT * Pt on IV lasix 20 mg. Stopped today and changed to home dose of lasix 40mg PO daily. - edema is improving * DVT r/o w/doppler 3. H/O CAD * continue metoprolol 25 mg BID * continue aggrenox 25 mg BID * called pharmacy today: restarted nifedipine 30 mg XR daily * continue pravastatin 40 mg daily 4. H/O DM * oral hypoglycemics held * on insulin SS 5. H/O BPH * continue finasteride, tamsulosin 6. H/O Hypothyroidism * continue synthroid 7. H/O Dementia * continue aricept 10 mg * continue memantine 5 mg 8. H/O TIAs * continue aggrenox 9. H/O Gout * continue allopurinol DVT PPx: Heparin SQ Diet: Consistent Carbohydrate 3 Code: DNR/DNI Disposition: Discharge home (lives with daughter) tomorrow pending PT evaluation Problem List: 1. Bilateral lower extremity edema 2. Cellulitis of right lower extremity 3. Diabetes 4. CAD (coronary artery disease) Pain Ratin Pain Location: leg pain Pain Goal: Remain pain free Pain Plan: percocet PO PRN tylenol PO PRN Tomorrow's Labs & Rationales: CBC JEANINE SUERO MD,SUSANNAH 12/28/16 1250: Attending MD Review Statement Attending Statement Attending MD Statement: examined this patient, discuss w/resident/PA/VPK TEACHER, agreed w/resident/PA/VPK TEACHER, reviewed EMR data (avail), discussed with nursing, discussed with case mgmt, reviewed images, amended to note Attending Assessment/Plan: Patient seen and examined, he offers no complaints. Patient was originally admitted for lower extremity swelling and cellulitis. He is on oral antibiotics and he was kept on IV diuretics. Vital Signs Date Time Temp Pulse Resp B/P B/P Pulse O2 O2 Flow FiO2 Mean Ox Delivery Rate 12/28 1044 120/64 12/28 1033 Room Air 12/28 1028 Room Air 12/28 0854 124/60 12/28 0656 98.2 88 20 164/72 96 12/28 0655 88 164/72 12/27 2203 97.6 74 19 140/78 95 12/27 2131 74 140/74 12/27 2130 74 140/78 12/27 1426 98.3 68 20 114/60 95 Room Air on exam; awake, nad. very hard of hearing cv: s1,s2, rrr resp; clear abd; soft, nt, bs+ ext; 1+ edema with some erythema, feet have scaling and open dirty looking interweb spaces. Laboratory Tests 12/28 0650 Chemistry Sodium (137 - 145 mmol/L) 142 Potassium (3.5 - 5.1 mmol/L) 4.8 Chloride (98 - 107 mmol/L) 101 Carbon Dioxide (22 - 30 mmol/L) 32 H Anion Gap (5 - 16) 9 BUN (9 - 20 mg/dL) 20 Creatinine (0.7 - 1.2 mg/dL) 1.0 Estimated GFR (>60 ml/min) > 60 BUN/Creatinine Ratio (7 - 25 %) 20.0 Hematology CBC w Diff NO MAN DIFF REQ WBC (4.8 - 10.8 /CUMM) 10.2 RBC (4.70 - 6.10 /CUMM) 3.41 L Hgb (14.0 - 18.0 G/DL) 9.9 L Hct (42 - 52 %) 31.5 L MCV (80.0 - 94.0 FL) 92.5 MCH (27.0 - 31.0 PG) 29.2 RDW (11.5 - 14.5 %) 15.7 H Plt Count (130 - 400 /CUMM) 198 MPV (7.4 - 10.4 FL) 7.4 Gran % (42.2 - 75.2 %) 75.7 H Lymphocytes % (20.5 - 51.1 %) 17.7 L Monocytes % (1.7 - 9.3 %) 4.6 Eosinophils % (0 - 5 %) 1.7 Basophils % (0.0 - 2.0 %) 0.3 Absolute Granulocytes (1.4 - 6.5 /CUMM) 7.7 H Absolute Lymphocytes (1.2 - 3.4 /CUMM) 1.8 Absolute Monocytes (0.10 - 0.60 /CUMM) 0.5 Absolute Eosinophils (0.0 - 0.7 /CUMM) 0.2 Absolute Basophils (0.0 - 0.2 /CUMM) 0 PUBS MCHC (33.0 - 37.0 G/DL) 31.5 L A/P; 81 y/o M with pmh sig for Alzheimer's, CHF, cad s/p balloon angioplasty, hypertension, diabetes, bladder cancer s/p resection, BPH s/p TURP and hypothyroid, admitted with bilateral lower externally cerebritis as well as edema. Currently getting treated with oral clindamycin. Blood cultures remain negative. Patient on IV Lasix. Likely can switch him to oral Lasix starting tomorrow. Lower externally swelling is better. Patient does have dirty looking into webspaces in bilateral feet. Will obtain wound care consult. Continue all other current medications. Patient on heparin subcutaneous for DVT prophylaxis. PT recommends rehabilitation. Left a msg for daughter (POA) to call back.
--- NOTE | 2016-12-28 13:20 | Discharge Summary ---
Visit Information Visit Dates Admission Date: 12/26/16 Discharge Date: 12/29/2016 Hospital Course Course Attending Physician: KELSI CRAIG MD Primary Care Physician: ABBY DAHL,[facility] Course: Patient is a 81-year-old male with past medical history of Alzheimer's, CHF, cad s/p balloon angioplasty, hypertension, diabetes, bladder cancer s/p resection, BPH s/p TURP and hypothyroid presenting with worsening bilateral lower leg extremity. Note pt has poor follow up as he has BCC of fce and aortic aneurysm on 2015 but does not want follow up. CC: He currently presents for a new right leg sore which has been bothering for the past few days. His daughters' stated that there is a foul-smelling discharge coming from the right medial ankle. Failed out pt trt about a month ago. Pt seen for following problems Right lower extremity cellulitis: Pt remained afebrile during hsopital stay. Was treated with Clindamycin PO 300mg q6. Wound care consultated * Will continue Clindamycin 300 mg every 6 for a total of 7 days * Encourage elevation of lower extremities. * Follow up with wound care Bilateral lower extremity edema: Patient ruled out for DVT. Was started on IV Lasix 20 mg in hospital with good response. * Physical therapy evaluation recommends STR * Con't Po Lasix 40mg History of coronary artery disease. * Continue metoprolol 25 mg twice a day. * Continue Aggrenox 25 mg twice a day. * Con't Nifedipine History of hypothyroidism * Continue levothyroxine 50 g. History of dementia. * Continue home medications. Allergies: Coded Allergies: Penicillins (SWELLING 05/26/16) Pertinent Lab Results: Laboratory Tests 12/28 0650 Chemistry Sodium (137 - 145 mmol/L) 142 Potassium (3.5 - 5.1 mmol/L) 4.8 Chloride (98 - 107 mmol/L) 101 Carbon Dioxide (22 - 30 mmol/L) 32 H Anion Gap (5 - 16) 9 BUN (9 - 20 mg/dL) 20 Creatinine (0.7 - 1.2 mg/dL) 1.0 Estimated GFR (>60 ml/min) > 60 BUN/Creatinine Ratio (7 - 25 %) 20.0 Hematology CBC w Diff NO MAN DIFF REQ WBC (4.8 - 10.8 /CUMM) 10.2 RBC (4.70 - 6.10 /CUMM) 3.41 L Hgb (14.0 - 18.0 G/DL) 9.9 L Hct (42 - 52 %) 31.5 L MCV (80.0 - 94.0 FL) 92.5 MCH (27.0 - 31.0 PG) 29.2 RDW (11.5 - 14.5 %) 15.7 H Plt Count (130 - 400 /CUMM) 198 MPV (7.4 - 10.4 FL) 7.4 Gran % (42.2 - 75.2 %) 75.7 H Lymphocytes % (20.5 - 51.1 %) 17.7 L Monocytes % (1.7 - 9.3 %) 4.6 Eosinophils % (0 - 5 %) 1.7 Basophils % (0.0 - 2.0 %) 0.3 Absolute Granulocytes (1.4 - 6.5 /CUMM) 7.7 H Absolute Lymphocytes (1.2 - 3.4 /CUMM) 1.8 Absolute Monocytes (0.10 - 0.60 /CUMM) 0.5 Absolute Eosinophils (0.0 - 0.7 /CUMM) 0.2 Absolute Basophils (0.0 - 0.2 /CUMM) 0 PUBS MCHC (33.0 - 37.0 G/DL) 31.5 L Disposition Summary Disposition Principal Diagnosis: cellulitis Additional Diagnosis: dementia Discharge Disposition: SNF Discharge Instructions General Discharge Information Code Status: Do Not Resucitate/Intubat Patient's Diet: Diabetic diet Patient's Activity: as tolerated Follow-Up Instructions/Appts: see above
[2016-12-28 14:23] VITALS: BP 130/54
--- NOTE | 2016-12-28 15:56 | NUR ---
WOUND CARE: REQUESTED TO EVAL PT BY MEDICAL STAFF - PT NOTED WITH MULTIPLE SKIN ALTERATIONS PRESENT ON ADMISSION - HX OBTAINED FROM PT AND CHART REVIEW - LEFT HEAD NTOED WITH A RAISED 2X2 CM LESION NON DRNG SKIN CA PER CAHRT REVIEW - NO TOPICAL TX INDICATED - RIGHT INNER ANKLE 8X11 CM PARTIAL THICNKESS WOUND WITH HYOPERGRANULAR FILL AND YELLOW CRUSTED DRNG NOTED - ANDREEA OF CLEAN RED GRANULARTION THROUGHOUT - RIGHT LEG PRESENTS WITH A 6X5 CM CLUSTERED WOUND OF YELLOW SEROUS FILLED BLISTERS - PT REPORTS CHRONIC SWELLING AND SKIN BREAKDOWN AT HOME - ALL TOES NOTED WITH LICHENFICATION ADN DRY CRACKED PWWLING SKIN - SKIN CARE PROVIDED AND TOLERATED FAIR - PT EDUCATED RE: RISKS OF FISSURES AND SKIN BREAKDOWN IF FOOT CARE NEGLECTED - STATED AN UNDERSTANDING RECOMMENDATION: CLEANSE RAFAL LEG WOUNDS WITH NS FB ADAPTIC AND KERLIX DAILY - ELEVATION ABOVE HEART LEVEL PLEASE - APPLY VITAMIN A+D OINTMENT FEET AND SHINS DAILY PLEASE
--- NOTE | 2016-12-28 21:02 | Patient Discharge Instructions ---
Discharge Instructions General Discharge Information You were seen/treated for: right lower leg cellulitis and edema Watch for these problems: Purulent foul smelling discharge, fever, chills, nausea, vomitting, increased pain and swelling of one or both legs. Daily wet to dry dressings: Yes Special Instructions: 1. Please follow up with your primary care provider in 1 week 2. Please complete Clindamycin 500mg four times a day for 4 days. 3. Follow up with wound care Diet Continue normal diet: No Recommended Diet: Heart Healthy Activity Activity Self Limited: Yes Acute Coronary Syndrome Inclusion Criteria At DC or during hospital stay patient has or had the following: ACS DIAGNOSIS No Discharge Core Measures Meds if any: Prescribed or Continued at Discharge Meds if any: NOT Prescribed or Continued at Discharge Congestive Heart Failure Inclusion Criteria At DC or during hospital stay patient has or had the following: CHF DIAGNOSIS No Discharge Core Measures Meds if any: Prescribed or Continued at Discharge Meds if any: NOT Prescribed or Continued at Discharge Cerebrovascular accident Inclusion Criteria At DC or during hospital stay patient has or had the following: CVA/TIA Diagnosis No Discharge Core Measures Meds if any: Prescribed or Continued at Discharge Meds if any: NOT Prescribed or Continued at Discharge Venous thromboembolism Inclusion Criteria VTE Diagnosis No VTE Type NONE VTE Confirmed by (Test) NONE Discharge Core Measures - Per Current guidelines, there needs to be overlap - treatment for the first 5 days of Warfarin therapy. - If discharged on Warfarin prior to 5 days of - overlap therapy, the patient will need to be - assessed for post discharge needs including - *Post discharge parental anticoagulation - *Warfarin and/or parental anticoagulation education - *Follow up date to check INR post discharge At least 5 days overlap therapy as Inpatient No Meds if any: Prescribed or Continued at Discharge Note: Overlap Therapy is Warfarin and Anticoagulant Meds if any: NOT Prescribed or Continued at Discharge
[2016-12-28 22:20] VITALS: BP 158/76
[2016-12-29 06:07] VITALS: BP 138/72
--- NOTE | 2016-12-29 07:23 | PN- Housestaff ---
JACK DAHL,MELISSA 12/29/16 0723: Subjective Follow-up For: RLE Cellulitis, Bilateral LE Edema Subjective: Pt was doing well today. No acute overnight events. States he is ready to go home. Denies leg pain, chest pain, SOB, n/v, fever/chills. Legs are wrapped in kerlex. Review of Systems Constitutional: Denies: see HPI. Objective Last 24 Hrs of Vital Signs/I&O Vital Signs Date Time Temp Pulse Resp B/P B/P Pulse O2 O2 Flow FiO2 Mean Ox Delivery Rate 12/29 0825 79 134/64 12/29 0824 79 134/64 12/29 0824 79 134/64 12/29 0607 98.2 73 20 138/72 96 Room Air 12/28 2225 70 138/76 12/28 2224 70 138/76 12/28 2220 98.0 70 20 158/76 97 Room Air 12/28 1808 144/70 12/28 1423 98.1 70 20 130/54 95 Room Air Intake & Output 12/29 1600 12/29 0800 12/29 0000 Intake Total 240 240 Output Total 350 Balance -110 240 Intake, Oral 240 240 Output, Urine 350 Patient 185 lb Weight Physical Exam General Appearance: Alert, Cooperative, No Acute Distress HEENT: Atraumatic, Mucous Membr. moist/pink Cardiovascular: Regular Rate, Normal S1, Normal S2 Lungs: Clear to Auscultation Extremities: Normal Pulses, both LE wrapped in kerlex, trace edema, erythema that is improving Assessment/Plan Assessment: Pt is an 81 y/o male with PMH of CAD s/p balloon angioplasty, bladder cancer s/p resection w/recurrence, BPH s/p TURP (2013), hypothyroid, DM, multiple TIAs, dementia presented to ED with worsening bilateral LE edema and discharge from RLE. Admitted to general medicine for management of the followin. Right LE Cellulitis * pt improving on clindamycin 300mg q6 PO - afebrile, WBC remains normal, RLE tenderness and erythema less today - will discharge today on same antibiotic for a complete 7 day course - wound care consulted- dressing: NS w/ FB Adaptic and Kerlix DSG - daily wet to dry dressing changes - blood cultures negative to date 2. Bilateral LE Edema r/o DVT * Pt on IV lasix 20 mg. Stopped today and changed to home dose of lasix 40mg PO daily. - edema is improving * DVT r/o w/doppler 3. H/O CAD * continue metoprolol 25 mg BID * continue aggrenox 25 mg BID * called pharmacy today: restarted nifedipine 30 mg XR daily * continue pravastatin 40 mg daily 4. H/O DM * oral hypoglycemics held * on insulin SS 5. H/O BPH * continue finasteride, tamsulosin 6. H/O Hypothyroidism * continue synthroid 7. H/O Dementia * continue aricept 10 mg * continue memantine 5 mg 8. H/O TIAs * continue aggrenox 9. H/O Gout * continue allopurinol DVT PPx: Heparin SQ Diet: Consistent Carbohydrate 3 Code: DNR/DNI Disposition: Discharge home (lives with daughter) today with VNA and outpatient PT Problem List: 1. Cellulitis of right lower extremity 2. Bilateral lower extremity edema Pain Ratin Pain Location: none Pain Goal: Remain pain free Pain Plan: none Tomorrow's Labs & Rationales: none PIO DAHL,[facility] 12/29/16 1442: Attending MD Review Statement Attending Statement Attending MD Statement: examined this patient, discuss w/resident/PA/RETAIL CUSTOMER SERVICE REPRESENTATIVE, agreed w/resident/PA/RETAIL CUSTOMER SERVICE REPRESENTATIVE, discussed with family, reviewed EMR data (avail), discussed with nursing, discussed with case mgmt, reviewed images, amended to note Attending Assessment/Plan: Patient seen and examined, overall doing better. He denies any complaints. His bilateral lower extremity erythema and swelling has improved. He was seen by her own care yesterday and was started on Adaptic as well as vitamin A and D ointment. Patient remains afebrile and normal white blood cell count. He is already on oral antibiotics and Lasix has been switched to oral. Patient medically stable for discharge. He will be discharged home. Initial PT value is recommended rehabilitation with patient's daughter wants to bring him home and he will get home services including visiting nurse and physical therapy for home and wound care. Patient to follow Roshni Ashton MD as an outpatient.
[2016-12-29] MEDS ORDERED: CLINDAMYCIN HC300 M1 PO ×2 (07:55→13:35)
[2016-12-29 08:31] LABS: GRANULOCYTE % 69.5 % (42.2-75.2); HEMATOCRIT 32.6 % (42-52)
[2016-12-29 08:35] LABS: ABSOLUTE BASOPHIL COUNT 0.1 /CUMM (0.0-0.2); ABSOLUTE EOSINOPHIL COUNT 0.3 /CUMM (0.0-0.7); ABSOLUTE GRANULOCYTE CT 7.1 /CUMM (1.4-6.5); ABSOLUTE LYMPH COUNT 2.3 /CUMM (1.2-3.4); ABSOLUTE MONOCYTE COUNT 0.5 /CUMM (0.10-0.60); BASOPHIL % 0.5 % (0.0-2.0); EOSINOPHIL % 2.5 % (0-5); MEAN CORPUSCULAR HGB 29.2 PG (27.0-31.0); MEAN CORPUSCULAR HGB CONC 31.7 G/DL (33.0-37.0); MEAN PLATELET VOLUME 7.2 FL (7.4-10.4); PLATELET COUNT 235 /CUMM (130-400); RED BLOOD CELL CT 3.55 /CUMM (4.70-6.10); WHITE BLOOD CELL COUNT 10.2 /CUMM (4.8-10.8)
[2016-12-29 14:33] VITALS: BP 128/60
[2016-12-29 14:53] VITALS: BP 128/60
== END 2016-12-29 16:34 | disposition home health service (06) | DRG 603 ==
LOC: ERH 17:35 → 2NB 20:50 → ERHI 20:50 → 2NB 20:50 → ENTRNSPT 21:24 → 2NB 22:01 → CMPTRNSPT 22:07 → ENPENDDIS 12-29 13:48 → 2NB 12-29 16:34
PROVIDERS: Student in an Organized Health Care Education/Training Program; ADMIT Internal Medicine
DX: L03.115 Cellulitis of right lower limb (principal); I11.0 Hypertensive heart disease with heart failure; I50.9 Heart failure, unspecified; E11.622 Type 2 diabetes mellitus with other skin ulcer; L97.311 Non-pressure chronic ulcer of right ankle limited to breakdown of skin; G30.9 Alzheimer's disease, unspecified; I87.2 Venous insufficiency (chronic) (peripheral); F02.80 Dementia in other diseases classified elsewhere, unspecified severity, without behavioral disturbance, psychotic disturbance, mood disturbance, and anxiety; E03.9 Hypothyroidism, unspecified; I25.10 Atherosclerotic heart disease of native coronary artery without angina pectoris; Z95.5 Presence of coronary angioplasty implant and graft; M10.9 Gout, unspecified; Z87.891 Personal history of nicotine dependence; N40.0 Benign prostatic hyperplasia without lower urinary tract symptoms; Z66 Do not resuscitate; Z86.73 Personal history of transient ischemic attack (TIA), and cerebral infarction without residual deficits; Z79.84 Long term (current) use of oral hypoglycemic drugs; Z85.51 Personal history of malignant neoplasm of bladder
CPT/HCPCS: 2NBSP; 36415; 82436; 87040; 93970; 97116-GO; 97162-GP; 97165-GO; 97530-GO; J1644; J1650; J1940

== ENCOUNTER 2017-07-04 21:40 | Inpatient (IN) | payer OTHER ==
[~2017-07-04] VITALS: Ht 172.7 cm; Wt 38.1 kg
[~2017-07-04 21:40] MED LIST changes: +AGGRENOX 25 MG1 EACH PO; +CLINDAMYCIN HC300 M1 PO; +FLOMAX0.4 M1 PO; +HYDRALAZINE HCL25 M1 PO; +LASIX40 M1 PO; +METFORMIN HCL500 M4 PO; +METOPROLOL SUCC25 M1 PO; +NAMENDA XR14 M1 PO; +NIFEDIPINE ER30 M2 PO; +PRAVACHOL40 M1 PO; +PROSCAR5 M1 PO; +SYNTHROID50 MCG PO; +VITAMIN D250000 UNIT PO
--- NOTE | 2017-07-04 21:46 | ED AMS/SEIZURE/WEAK/DIZZY ---
History of Present Illness General Chief Complaint: General Adult Stated Complaint: GEN ADULT Source: patient Exam Limitations: no limitations Vital Signs & Intake/Output Vital Signs & Intake/Output Vital Signs Date Time Temp Pulse Resp B/P B/P Pulse O2 O2 Flow FiO2 Mean Ox Delivery Rate 07/05 0040 96.2 62 18 110/55 96 Room Air 07/044 96 Nasal 2.0L Cannula 07/043 68 18 103/49 96 Room Air ED Intake and Output 07/05 0000 07/04 1200 Intake Total 0 Output Total Balance 0 Intake, Oral 0 Patient 150 lb Weight Weight Estimated Measurement Method Allergies Coded Allergies: Penicillins (SWELLING 05/26/16) Reconcile Medications Allopurinol 300 MG TABLET 1 TAB PO DAILY GOUT (Reported) Clindamycin HCl 300 MG CAPSULE 1 TAB PO FOUR TIMES A DAY SKIN INFECTION Ergocalciferol (Vitamin D2) (Vitamin D2) 50,000 UNIT CAPSULE 1 CAP PO EVERY 10 DAY SUPPLEMENT (Reported) Finasteride (Proscar) 5 MG TABLET 1 TAB PO QPM BLADDER HEALTH (Reported) Furosemide (Lasix) 40 MG TABLET 1 TAB PO BID HEART HEALTH (Reported) Glipizide (Glipizide ER) 2.5 MG TAB.ER.24 1 TAB PO BID DIABETES (Reported) Hydralazine HCl 25 MG TABLET 1 TAB PO BID HTN (Reported) Levothyroxine Sodium (Synthroid) 50 MCG TABLET 1 TAB PO DAILY THYROID ( Reported) Memantine HCl (Namenda XR) 14 MG CAP.SPR.24 1 CAP PO DAILY ALZHEIMERS ( Reported) Metformin HCl (Metformin HCl ER) 500 MG TAB.ER.24H 2 TAB PO BID DIABETES ( Reported) Metoprolol Succinate 25 MG TAB 1 TAB PO DAILY HTN (Reported) Nifedipine (Nifedipine ER) 30 MG TAB.ER.24 1 TAB PO DAILY HTN (Reported) Pravastatin Sodium (Pravachol) 40 MG TABLET 1 TAB PO DAILY HIGH CHOLESTROL ( Reported) Tamsulosin HCl (Flomax) 0.4 MG CAP.ER.24H 1 CAP PO QPM BLADDER HEALTH ( Reported) Triage Nurses Notes Reviewed? yes Onset: Gradual Duration: day(s): Timing: recent history Injury Environment: home Modifying Factors: Improves With: rest. Associated Symptoms: weakness HPI: 82 Yo gentleman from home, presents with failure to thrive. Per the family, "He hasn't been doing well for a couple of days now... He doesn' t eat that much... He still drinks a little... but mostly he has just been so tired... not getting out of bed... more tired.... he hardly walks anymore." His family notes that he is otherwise well. 911 called. Medics arrived and found him with a sbp in the 70's. Past History Travel History Traveled to [place] past 21 day No Medical History Any Pertinent Medical History? 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 No Review of Systems Review of Systems Constitutional: Reports: no symptoms. EENTM: Reports: no symptoms. Respiratory: Reports: no symptoms. Cardiovascular: Reports: no symptoms. GI: Reports: no symptoms. Genitourinary: Reports: no symptoms. Musculoskeletal: Reports: no symptoms. Skin: Reports: no symptoms. Neurological/Psychological: Reports: no symptoms. Hematologic/Endocrine: Reports: no symptoms. Immunologic/Allergic: Reports: no symptoms. All Other Systems: Reviewed and Negative Physical Exam Physical Exam General Appearance: well developed/nourished, mild distress Head: atraumatic, normal appearance Eyes: Bilateral: normal appearance, PERRL, EOMI. Ears, Nose, Throat: dry mucosa Neck: normal inspection, supple, full range of motion Respiratory: normal breath sounds, chest non-tender, no respiratory distress Cardiovascular: regular rate/rhythm Gastrointestinal: normal bowel sounds, soft, non-tender Rectal: stage ii/iii decubiti ulcer Extremities: normal range of motion Neurologic/Psych: knows name, not person, not place Reflexes: 0: knee (R), knee (L). 1+: bicep (R). Skin: intact, normal color, warm/dry Core Measures ACS in differential dx? No CVA/TIA Diagnosis No Sepsis Present: Yes Sepsis Focused Exam Completed? Yes Progress Differential Diagnosis: alcohol intoxication, CVA/stroke, dehydration, intracranial Hem., intracranial mass/tumor, vs other Plan of Care: Orders Procedure Date/time Status Nothing by Mouth 07/05 B Active LACTIC ACID 07/05 0508 Active LACTIC ACID 07/05 0208 Active Patient Data 07/05 0200 Active Patient Data 07/05 0139 Active LACTIC ACID 07/05 0049 Complete Saline Lock 07/05 0036 Active Misc Message 07/05 0036 Active ED Holding Orders 07/05 0036 Active Admit to inpatient 07/05 0036 Active Vital Signs 07/05 0036 Active Code Status 07/05 003 Active Neves, Insertion/Removal/Asses 07/05 0004 Active CULTURE,URINE 07/05 0004 Active CULTURE,STOOL 07/04 2250 Active C.DIFFICILE 07/04 225 Active URINALYSIS 07/04 215 Complete TROPONIN LEVEL 07/04 2148 Complete LIPASE 07/04 2148 Complete LACTIC ACID 07/04 2148 Complete HEPATIC FUNCTION PANEL 07/04 2148 Complete CBC WITHOUT DIFFERENTIAL 07/04 2148 Complete BASIC METABOLIC PANEL 07/04 2148 Complete AMYLASE 07/04 2148 Complete EKG 07/04 2148 Active Laboratory Tests 07/05/17 0022: Lactic Acid 4.5 H 07/04/17 2210: Urine Color YEL, Urine Clarity CLEAR, Urine pH 6.0, Ur Specific [place] 1.020, Urine Protein NEG, Urine Ketones NEG, Urine Nitrite NEG, Urine Bilirubin NEG, Urine Urobilinogen 0.2, Ur Leukocyte Esterase NEG, Ur Microscopic SEDIMENT EXAMINED, Urine RBC RARE, Urine WBC RARE, Ur Epithelial Cells FEW, Urine Bacteria RARE H, Hyaline Casts RARE H, Urine Mucus RARE, Urine Hemoglobin TRACE-INTACT H, Urine Glucose NEG 07/04/17 2200: Anion Gap 21 H, Estimated GFR 10 L, BUN/Creatinine Ratio 18.3, Glucose 149 H, Lactic Acid 4.3 H, Calcium 9.4, Total Bilirubin 0.3, Direct Bilirubin 0.3, AST 71 H, ALT 37, Alkaline Phosphatase 81, Troponin I 0.06, Total Protein 6.7, Albumin 3.5, Amylase 60, Lipase 118, CBC w Diff NO MAN DIFF REQ, RBC 3.02 L, MCV 94.4 H, MCH 30.4, RDW 15.3 H, MPV 7.3 L, Gran % 89.6 H, Lymphocytes % 8.8 L, Monocytes % 1.0 L, Eosinophils % 0.2, Basophils % 0.4, Absolute Granulocytes 11.3 H, Absolute Lymphocytes 1.1 L, Absolute Monocytes 0.1, Absolute Eosinophils 0, Absolute Basophils 0, PUBS MCHC 32.2 L Microbiology 07/05 119 URINE ROUT: Urine Culture - RECD 07/04 2249 STOOL: Clostridium difficile Toxin A & B - ORD 07/04 2249 STOOL: Stool Culture - ORD Diagnostic Imaging: Viewed by Me: Radiology Read, CT Scan. Discussed w/RAD: Radiology Read, CT Scan. Radiology Impression: PATIENT: ALY KYLE PRESENT AGE: 82 PATIENT ACCOUNT NO: [id number] : 35 LOCATION: [facility] ORDERING PHYSICIAN: Seth Friedman MD SERVICE DATE: 07/04/17 EXAM TYPE: CAT - CT ABD & PELVIS W/O IV CONTRAS EXAMINATION: CT ABDOMEN AND PELVIS WITHOUT CONTRAST CLINICAL INFORMATION: Diarrhea, abdominal distention. Question colitis. COMPARISON: CT from 01/27/2014 TECHNIQUE: Multidetector volumetric imaging was performed from the superior aspect of the liver through the pubic symphysis. Sagittal and coronal reformatted images were obtained on the technologist's workstation. DLP: 441 mGy-cm FINDINGS: LUNG BASES: The lung bases are clear. Coronary artery calcifications are present. LIVER, GALLBLADDER, AND BILIARY TREE: The liver is normal in size, shape, and attenuation. No focal hepatic lesion or biliary ductal dilatation is present. The gallbladder is unremarkable with no evidence of radiopaque gallstones, gallbladder wall thickening, or obvious pericholecystic inflammatory changes. PANCREAS: Unremarkable. SPLEEN: Unremarkable. ADRENAL GLANDS: There is thickening of the bilateral adrenal glands with no definite focal nodule. KIDNEYS AND URETERS: The kidneys are normal in size, shape, and attenuation. No hydronephrosis, hydroureter, or calculi seen. Symmetric perinephric stranding. BLADDER: Bladder is thick-walled with mild trabeculations. Diverticula are present at the bladder dome. This is fairly similar to prior. GASTROINTESTINAL TRACT: Small hiatal hernia. The stomach is otherwise unremarkable. The small bowel is normal in caliber without obstruction. There is pancolonic diverticulosis, greatest at the sigmoid colon. No evidence of diverticulitis. No colonic wall thickening or inflammatory change. No free air or free fluid. ABDOMINAL WALL: Small fat- containing umbilical hernia. LYMPH NODES: Normal. VASCULAR: There is an abdominal aortic aneurysm which measures 4.6 cm in AP dimension. This compares to 4.3 cm on the study from 01/27/2014. Moderate atherosclerotic calcifications. PELVIC VISCERA: Enlarged, heterogeneous prostate. OSSEOUS STRUCTURES: Multilevel degenerative changes of the spine. Mild degenerative changes of the hips. IMPRESSION: 1. No acute inflammatory changes of the bowel. No wall thickening. Diverticulosis without evidence of diverticulitis. 2. Wall thickening of the bladder with trabeculation and diverticula. This may be associated with a bladder outlet obstruction. Cystitis not excluded. The prostate is enlarged and heterogeneous. 3. Abdominal aortic aneurysm, measuring 4.6 cm in AP dimension. This demonstrates a slight increase compared to the previous study from 2013, measuring 4.3 cm at that time. DICTATED BY: Baltazar Noe MD DATE/TIME DICTATED:07/04/172349 [employer]:STEPHANIE DATE/TIME TRANSCRIBED:2349 CONFIDENTIAL, DO NOT COPY WITHOUT APPROPRIATE AUTHORIZATION. < Electronically signed in Other Vendor System> SIGNED BY: Baltazar Noe MD 07/04/172356, PATIENT: ALY KYLE PRESENT AGE: 82 PATIENT ACCOUNT NO: [id number] : 35 LOCATION: [facility] ORDERING PHYSICIAN: Seth Friedman MD SERVICE DATE: 07/04/17 EXAM TYPE: CAT - CT HEAD WO IV CONTRAST EXAMINATION: CT HEAD WITHOUT CONTRAST CLINICAL INFORMATION: Mental status changes. COMPARISON: Prior CT examinations, most recently . TECHNIQUE: Contiguous axial imaging was performed from the skull base to vertex without intravenous administration of contrast. Imaging is limited by motion artifact. DLP: 697.59 mGy-cm FINDINGS: There is no evidence of acute intracranial hemorrhage or territorial infarction. No abnormal mass effect or midline shift is seen. Cervantes to white matter differentiation is well preserved. No extra-axial fluid collections are identified. The ventricles are normal in size. There is generalized sulcal widening, consistent with advanced age. A small left upper parietal scalp hematoma is suspected, without underlying fracture (3:26). The mastoid air cells and visualized portions of the paranasal sinuses are well aerated. IMPRESSION: 1. No acute intracranial pathology. Evaluation is limited by motion artifact. 2. A small left upper parietal scalp hematoma is suspected, without underlying fracture. Please correlate clinically DICTATED BY: Dakotah Stiles MD DATE/TIME DICTATED:07/04/172349 [employer]:STEPHANIE DATE/TIME TRANSCRIBED:07/04/172349 CONFIDENTIAL, DO NOT COPY WITHOUT APPROPRIATE AUTHORIZATION. <Electronically signed in Other Vendor System> SIGNED BY: Dakotah Stiles MD 07/04/172356 CXR Impression: no acute abnormality, no infiltrates, normal size heart, normal mediastinum, PATIENT: ALY KYLE PRESENT AGE: 82 PATIENT ACCOUNT NO: [id number] : 35 LOCATION: [facility] ORDERING PHYSICIAN: Seth Friedman MD SERVICE DATE: 07/04/17 EXAM TYPE: RAD - XRY- PORTABLE CHEST XRAY EXAMINATION: XR PORTABLE CHEST CLINICAL INFORMATION: Hypoxia COMPARISON: 05/29/2016 TECHNIQUE: Portable frontal view of the chest was obtained. FINDINGS: Cardiac leads overlie the chest. No consolidation, edema, or effusion. No pneumothorax. The cardiomediastinal silhouette is within normal limits. No acute osseous abnormality. IMPRESSION: No acute pulmonary findings. DICTATED BY: Baltazar Noe MD DATE/TIME DICTATED:07/04/172331 [employer]:STEPHANIE DATE/TIME TRANSCRIBED:07/04/172331 CONFIDENTIAL, DO NOT COPY WITHOUT APPROPRIATE AUTHORIZATION. <Electronically signed in Other Vendor System> SIGNED BY: Baltazar Noe MD 07/04/172335 Initial ED EKG: SINUS TACH WITH ARTIFACT Departure Departure Disposition: STILL A PATIENT Condition: Stable Clinical Impression Primary Impression: Renal failure Secondary Impressions: Dehydration, Failure to thrive, Hyperkalemia Referrals: Eli Ashton MD (PCP/Family) Departure Forms: Customer Survey General Discharge Information Admission Note [facility]: [facility] Documentation of Exam: Documentation of any treatments & extenuating circumstances including Concerns Regarding Discharge (functional status, medication knowledge or non-compliance, living conditions, etc.) that warrant an admission rather than observation: renal failure with elevated creatinine...pt drained more than 1000cc after bladder drained. pt merits iv abx, consider renal/urology consult.
[2017-07-04 22:11] LABS: ABSOLUTE BASOPHIL COUNT 0 /CUMM (0.0-0.2); ABSOLUTE EOSINOPHIL COUNT 0 /CUMM (0.0-0.7); ABSOLUTE GRANULOCYTE CT 11.3 /CUMM (1.4-6.5); ABSOLUTE LYMPH COUNT 1.1 /CUMM (1.2-3.4); ABSOLUTE MONOCYTE COUNT 0.1 /CUMM (0.10-0.60); BASOPHIL % 0.4 % (0.0-2.0); EOSINOPHIL % 0.2 % (0-5); GRANULOCYTE % 89.6 % (42.2-75.2); HEMATOCRIT 28.5 % (42-52); MEAN CORPUSCULAR HGB 30.4 PG (27.0-31.0); MEAN CORPUSCULAR HGB CONC 32.2 G/DL (33.0-37.0); MEAN CORPUSCULAR VOLUME 94.4 FL (80.0-94.0); MEAN PLATELET VOLUME 7.3 FL (7.4-10.4); PLATELET COUNT 219 /CUMM (130-400); RBC DISTRIBUTION WIDTH 15.3 % (11.5-14.5); RED BLOOD CELL CT 3.02 /CUMM (4.70-6.10); WHITE BLOOD CELL COUNT 12.6 /CUMM (4.8-10.8)
--- NOTE | 2017-07-04 23:36 | RADIOLOGY REPORT ---
EXAMINATION: XR PORTABLE CHEST CLINICAL INFORMATION: Hypoxia COMPARISON: 05/29/2016 TECHNIQUE: Portable frontal view of the chest was obtained. FINDINGS: Cardiac leads overlie the chest. No consolidation, edema, or effusion. No pneumothorax. The cardiomediastinal silhouette is within normal limits. No acute osseous abnormality. IMPRESSION: No acute pulmonary findings.
--- NOTE | 2017-07-04 23:57 | CT SCAN REPORT ---
EXAMINATION: CT ABDOMEN AND PELVIS WITHOUT CONTRAST CLINICAL INFORMATION: Diarrhea, abdominal distention. Question colitis. COMPARISON: CT from 01/27/2014 TECHNIQUE: Multidetector volumetric imaging was performed from the superior aspect of the liver through the pubic symphysis. Sagittal and coronal reformatted images were obtained on the technologist's workstation. DLP: 441 mGy-cm FINDINGS: LUNG BASES: The lung bases are clear. Coronary artery calcifications are present. LIVER, GALLBLADDER, AND BILIARY TREE: The liver is normal in size, shape, and attenuation. No focal hepatic lesion or biliary ductal dilatation is present. The gallbladder is unremarkable with no evidence of radiopaque gallstones, gallbladder wall thickening, or obvious pericholecystic inflammatory changes. PANCREAS: Unremarkable. SPLEEN: Unremarkable. ADRENAL GLANDS: There is thickening of the bilateral adrenal glands with no definite focal nodule. KIDNEYS AND URETERS: The kidneys are normal in size, shape, and attenuation. No hydronephrosis, hydroureter, or calculi seen. Symmetric perinephric stranding. BLADDER: Bladder is thick-walled with mild trabeculations. Diverticula are present at the bladder dome. This is fairly similar to prior. GASTROINTESTINAL TRACT: Small hiatal hernia. The stomach is otherwise unremarkable. The small bowel is normal in caliber without obstruction. There is pancolonic diverticulosis, greatest at the sigmoid colon. No evidence of diverticulitis. No colonic wall thickening or inflammatory change. No free air or free fluid. ABDOMINAL WALL: Small fat-containing umbilical hernia. LYMPH NODES: Normal. VASCULAR: There is an abdominal aortic aneurysm which measures 4.6 cm in AP dimension. This compares to 4.3 cm on the study from 01/27/2014. Moderate atherosclerotic calcifications. PELVIC VISCERA: Enlarged, heterogeneous prostate. OSSEOUS STRUCTURES: Multilevel degenerative changes of the spine. Mild degenerative changes of the hips. IMPRESSION: 1. No acute inflammatory changes of the bowel. No wall thickening. Diverticulosis without evidence of diverticulitis. 2. Wall thickening of the bladder with trabeculation and diverticula. This may be associated with a bladder outlet obstruction. Cystitis not excluded. The prostate is enlarged and heterogeneous. 3. Abdominal aortic aneurysm, measuring 4.6 cm in AP dimension. This demonstrates a slight increase compared to the previous study from 2013, measuring 4.3 cm at that time.
--- NOTE | 2017-07-04 23:57 | CT SCAN REPORT ---
EXAMINATION: CT HEAD WITHOUT CONTRAST CLINICAL INFORMATION: Mental status changes. COMPARISON: Prior CT examinations, most recently . TECHNIQUE: Contiguous axial imaging was performed from the skull base to vertex without intravenous administration of contrast. Imaging is limited by motion artifact. DLP: 697.59 mGy-cm FINDINGS: There is no evidence of acute intracranial hemorrhage or territorial infarction. No abnormal mass effect or midline shift is seen. Cervantes to white matter differentiation is well preserved. No extra-axial fluid collections are identified. The ventricles are normal in size. There is generalized sulcal widening, consistent with advanced age. A small left upper parietal scalp hematoma is suspected, without underlying fracture (3:26). The mastoid air cells and visualized portions of the paranasal sinuses are well aerated. IMPRESSION: 1. No acute intracranial pathology. Evaluation is limited by motion artifact. 2. A small left upper parietal scalp hematoma is suspected, without underlying fracture. Please correlate clinically
--- NOTE | 2017-07-05 02:57 | History & Physical ---
AlexiamilliMisbah 07/05/17 0256: General Information and HPI MD Statement: I have seen and personally examined BetsyTAIWOALY Madeleine and documented this H&P. The patient is a 82 year old M who presented with a patient stated chief complaint of [progressive weakness]. Source of Information: family, old records Exam Limitations: unable to give history, dementia History of Present Illness: CC: altered mental status and poor oral intake PMH: CAD S/P stent, bladder cancer s/p resection, BPH S/P TURP, hypothyroidism, DM, gout, TIA, end stage dementia, aortic aneurysm refused follow up, BCC refused further workup, HFpEF, recent admission to in 12/2016 for cellulitis. patient appears disoriented, agitated and does not provide any detail. History is provided by patient's daughter, over the phone. Patient lives alone but his daughter lives upstairs, looks after him including cooking; he also has 12 h aid at home. He was brought in by family due to his gradual progressive mental and physical decline for the past 2-3 month. According to daughter his PO intake, also, dclined in parallel with the decline in his mentation. He became increasingly agitated,and irritable. He has been spending more of his time at bed. According to daughter for the past 1-2 weeks particularly he baceme very week and refused to drink or eat and interact with his family. Patient Daughters have not noticed any fever, shortness of breath, worsening cough, abdominal distention, chest pain or tightness at home, nausea, vomiting, diarrhea, recent falls or loss of consciousness. In the ED, patient was hypotenssive at low 100s and received 1000 ml of fluid. Allergies/Medications Allergies: Coded Allergies: Penicillins (SWELLING 05/26/16) Home Med list Allopurinol 300 MG TABLET 1 TAB PO DAILY GOUT (Reported) Ergocalciferol (Vitamin D2) (Vitamin D2) 50,000 UNIT CAPSULE 1 CAP PO EVERY 10 DAY SUPPLEMENT (Reported) Finasteride (Proscar) 5 MG TABLET 1 TAB PO QPM BLADDER HEALTH (Reported) Furosemide (Lasix) 40 MG TABLET 1 TAB PO BID HEART HEALTH (Reported) Glipizide (Glipizide ER) 2.5 MG TAB.ER.24 1 TAB PO BID DIABETES (Reported) Hydralazine HCl 25 MG TABLET 1 TAB PO BID HTN (Reported) Levothyroxine Sodium (Synthroid) 50 MCG TABLET 1 TAB PO DAILY THYROID ( Reported) Memantine HCl (Namenda XR) 14 MG CAP.SPR.24 1 CAP PO DAILY ALZHEIMERS ( Reported) Metformin HCl (Metformin HCl ER) 500 MG TAB.ER.24H 2 TAB PO BID DIABETES ( Reported) Metoprolol Succinate 25 MG TAB 1 TAB PO DAILY HTN (Reported) Nifedipine (Nifedipine ER) 30 MG TAB.ER.24 1 TAB PO DAILY HTN (Reported) Pravastatin Sodium (Pravachol) 40 MG TABLET 1 TAB PO DAILY HIGH CHOLESTROL ( Reported) Tamsulosin HCl (Flomax) 0.4 MG CAP.ER.24H 1 CAP PO QPM BLADDER HEALTH ( Reported) Compliance With Home Meds: UNKNOWN Past History Travel History Traveled to [place] past 21 day No Medical History Neurological: Alzheimer's disease EENT: NONE Cardiovascular: CHF, hypertension, aortic aneurysm w/o f/u TIA CAD s/p balloon angioplasty stent Respiratory: NONE Gastrointestinal: NONE Hepatic: NONE Renal: bladder cancer s/p tumor resection BPH s/p TURP 2013 Musculoskeletal: gout Psychiatric: NONE Endocrine: diabetes, hypothyroidism Blood Disorders: NONE Cancer(s): NONE BRANCH SPECIALIST/Reproductive: NONE History of MRSA: No History of VRE: No History of CDIFF: No Surgical History Surgical History: cad s/p balloon angioplasty stent bladder cancer s/p resection bph s/p TURP 2013 Past Family/Social History Family History Relations & Conditions if any Relation not specified for: *No pertinent family history Psychosocial History Who Do You Live With? child Services at Home: Home Health Aide Primary Language: Japanese ETOH Use: denies use Living Will? yes Functional Ability ADLs Independent: dressing. Needs Assist: eating, toileting, bathing. Ambulation: walker IADLs Needs Assist: shopping, housework, finances, food prep, telephone, transportation, medication admin. Review of Systems Review of Systems Constitutional: Reports: see HPI. All Other Systems: Reviewed and Negative Comments not obtainable; refer to HPI Exam & Diagnostic Data Last 24 Hrs of Vital Signs/I&O Vital Signs Date Time Temp Pulse Resp B/P B/P Pulse O2 O2 Flow FiO2 Mean Ox Delivery Rate 07/05 0248 96.3 89 20 92/55 95 Nasal Cannula 07/05 0040 96.2 62 18 110/55 96 Room Air 01/14 2224 96 Nasal 2.0L Cannula 07/04 2223 68 18 103/49 96 Room Air Intake & Output 07/05 0800 07/05 0000 07/04 1600 Intake Total 1000 0 Output Total Balance 1000 0 Intake, IV 1000 Intake, Oral 0 Patient 150 lb Weight Weight Estimated Measurement Method Physical Exam General Appearance disorianted and confused and combative Skin No Rashes, dry HEENT membranes are dry Neck No JVD Lymphatic Axillary nl, Cervical nl Cardiovascular Normal S1, Normal S2 Abdomen Soft, No Tenderness Neurological agitated and confused Extremities No Edema, poor feet hygiene Vascular Normal Pulses, Pulses Symmetrical Body Front and Back (Adult) 1) non stagable sacral pressure wound Last 24 Hrs of Labs/Danny: Laboratory Tests 07/05/17 0208: Lactic Acid Cancelled 07/05/17 0022: Lactic Acid 4.5 H 07/04/17 2210: Urine Color YEL, Urine Clarity CLEAR, Urine pH 6.0, Ur Specific [place] 1.020, Urine Protein NEG, Urine Ketones NEG, Urine Nitrite NEG, Urine Bilirubin NEG, Urine Urobilinogen 0.2, Ur Leukocyte Esterase NEG, Ur Microscopic SEDIMENT EXAMINED, Urine RBC RARE, Urine WBC RARE, Ur Epithelial Cells FEW, Urine Bacteria RARE H, Hyaline Casts RARE H, Urine Mucus RARE, Urine Hemoglobin TRACE-INTACT H, Urine Glucose NEG 07/04/17 2200: Anion Gap 21 H, Estimated GFR 10 L, BUN/Creatinine Ratio 18.3, Glucose 149 H, Lactic Acid 4.3 H, Calcium 9.4, Total Bilirubin 0.3, Direct Bilirubin 0.3, AST 71 H, ALT 37, Alkaline Phosphatase 81, Troponin I 0.06, Total Protein 6.7, Albumin 3.5, Amylase 60, Lipase 118, CBC w Diff NO MAN DIFF REQ, RBC 3.02 L, MCV 94.4 H, MCH 30.4, RDW 15.3 H, MPV 7.3 L, Gran % 89.6 H, Lymphocytes % 8.8 L, Monocytes % 1.0 L, Eosinophils % 0.2, Basophils % 0.4, Absolute Granulocytes 11.3 H, Absolute Lymphocytes 1.1 L, Absolute Monocytes 0.1, Absolute Eosinophils 0, Absolute Basophils 0, PUBS MCHC 32.2 L Microbiology 07/05 0120 URINE ROUT: Urine Culture - RECD 07/04 2249 STOOL: Clostridium difficile Toxin A & B - ORD 07/04 2249 STOOL: Stool Culture - ORD Diagnostic Data EKG Results NSRR 73 b per min Assessment/Plan Assessment: assessment 82 years old with multiple past medical Hx and end-stage dementia was admitted for failure to thrive and altered mentation. Abdominal CT: ABD aortic aneurysm 4.6 ( increased from 4.3 from 2014); no other pathology Heat CT: No pathology CXR: No acute pulmonary findings. CBC: 12.6; H&H: 9.2/28 and plt: 219; Na 144, K, 5.9, BUN 97, Cr: 5.3 List of active problems: # FTT # FRANCO # hypotension # lactic acidosis # none-stagable sacral wound # DM # diarrhea ?? C. diff # BPH Plan * admit to general medical floor * Nothing by mouth * Fingersticks and insulin sliding scale every 6 hours * Wound consult in the a.m. * Podiatry consult * Nephrology consult if FRANCO did not improve * Continue gentle IV hydration with D5 normal saline @ 75 ml/hr * Hold diuretics, and antihypertensive medication, finasteride * Continue tamsulosin * Follow-up C. difficile screening * Follow-up TSH, free T4, B12 and folic acid level * PT eval and social work consult for eventual placement * Neves; strict ins and outs controlled * Watch off antibiotics; if become febrile, panculture and initiate antibiotic therapy * Repeat labs in the a.m. DNR/DNI Housekeeping orders As Ranked By This Provider Problem List: 1. Benign essential hypertension 2. Diabetes mellitus type 2 3. Gout 4. Hypoglycemia 5. THROAT CA S/P SURGERY 6. Transient ischemic attack 7. Dyspnea 8. Urinary tract infection 9. Hematuria syndrome 10. Bladder tumor 11. Neves catheter problem 12. Weakness 13. CHF exacerbation 14. Hypoxia 15. Acute kidney injury 16. Cough due to ARIEL inhibitor 17. Cough 18. BPH (benign prostatic hyperplasia) 19. CAD (coronary artery disease) 20. Dementia 21. Hypothyroidism 22. Bilateral pleural effusion 23. Pneumonia 24. Ulcer 25. Peripheral edema 26. Bilateral lower extremity edema 27. Dementia 28. Hypothyroidism 29. BPH (benign prostatic hyperplasia) 30. CAD (coronary artery disease) 31. Gout 32. Diabetes 33. HTN (hypertension) 34. DVT prophylaxis 35. Full code status 36. DNR (do not resuscitate) 37. Cellulitis of right lower extremity 38. Renal failure 39. Hyperkalemia 40. Dehydration 41. Failure to thrive Core Measures/Misc (03/07) Acute Coronary Syndrome ACS Diagnosis: No Congestive Heart Failure Congestive Heart Failure Diagnosis No Cerebrovascular Accident CVA/TIA Diagnosis: No VTE (View Protocol) VTE Risk Factors Immobility No Mechanical VTE Prophylaxis d/t N/A MechProphylax Ordered No VTE Pharm Prophylaxis d/t NA PharmProphylax ordered Sepsis (View protocol) Sepsis Present: No Db [facility], [facility] 07/05/17 0912: Attending MD Review Statement Attending Statement Attending MD Statement: examined this patient, discuss w/resident/PA/SPEED BELT SANDER TENDER, agreed w/resident/PA/SPEED BELT SANDER TENDER, reviewed images, amended to note Attending Assessment/Plan: 82 yo M with h/o Alzheimer's dementia, HTN, CAD s/p angioplasty, HfpEF, bladder cancer s/p resection, BPH s/p TURP, DM, gout, hypothyroidism, is brought in for failure to thrive, gradual cognitive and functional decline over past 2-3 months. Per family, he has not been doing well for past few days, has poor PO intake, is weak and lethargic, and hardly walks anymore. When EMS arrived, he was noted to be hypotensive to 70's, sugar 67. He received IV fluids with good response. While in the ER, patient had few episodes of large loose BM. Patient is disoriented, agitated and using foul language, history was obtained from ER notes and family. Vitals stable. He appears very dry, unkempt. Large unstageable wound to coccyx. Labs: WBC 12.6, macrocytic anemia H/H 9.2/28.5 (baseline 9-/ -), Na 144, K 5.9, AG 21, BUN 97, creat 5.3 (baseline 1.1-1.5), lactic acid 4.3, AST 71, trop neg. UA clear. CXR: no acute findings. Head CT: no acute pathology, small left upper parietal scalp hematoma suspected, no underlying fracture. CT abd/pelvis: no acute inflmmatory changes of bowel, wall thickening of bladder may be associated with [place]. Prostate enlarged. AAA 4.6 cm, slight increase from 2013 when it was 4.3 cm. EKG: sinus tachycardia with no acute changes. Assessment and plan: 1. Failure to thrive in an adult 2. FRANCO on CKD stage 3 3. Dehydration 4. BPH with bladder outlet obstruction 5. Hyperkalemia secondary to renal failure 6. Hypotension resolved 7. Lactic acidosis 8. Abdominal aortic aneurysm - Admit to general medicine - Fall and aspiration precautions - Neves placed, monitor I/O's 800-1000 cc drained on initial placement. - IV fluids, monitor renal functions, trend lactic acid. - Obtain renal ultrasound - Hold allopurinol, lasix, glipizide, hydralazine, metformin, nifedipine, metoprolol and tamsulosin. - Resume finasteride, namenda and levothyroxine - Once BP stabilizes, consider resuming flomax and metoprolol and there after nifedipine and hydralazine - Leukocytosis with no clear source of infection, monitor off antibiotics - If febrile will panculture - Check TSH, free T4, HbA1c, B12, folic acid. - Work up diarrhea check for Cdiff, stool culture and ova-parasite - Avoid delirium triggers, provide frequent orientation - Check pre-albumin - NPO, obtain swallow eval - Obtain PT eval - Wound consult - Nutrition consult - Case management consult and eventual placement DVT ppx Hep SC. DNR/I (as per family). Please confirm CMR in AM, not sure why he is not on aspirin or aggrenox ( based on previous discharge) for his CAD.
[2017-07-05 06:27] LABS: ABSOLUTE BASOPHIL COUNT 0 /CUMM (0.0-0.2); ABSOLUTE EOSINOPHIL COUNT 0 /CUMM (0.0-0.7); ABSOLUTE GRANULOCYTE CT 9.3 /CUMM (1.4-6.5); ABSOLUTE LYMPH COUNT 1.4 /CUMM (1.2-3.4); ABSOLUTE MONOCYTE COUNT 0.3 /CUMM (0.10-0.60); BASOPHIL % 0.4 % (0.0-2.0); EOSINOPHIL % 0.1 % (0-5); GRANULOCYTE % 83.8 % (42.2-75.2); HEMATOCRIT 24.3 % (42-52); MEAN CORPUSCULAR HGB 30.3 PG (27.0-31.0); MEAN CORPUSCULAR HGB CONC 32.3 G/DL (33.0-37.0); MEAN CORPUSCULAR VOLUME 93.9 FL (80.0-94.0); MEAN PLATELET VOLUME 7.5 FL (7.4-10.4); PLATELET COUNT 168 /CUMM (130-400); RBC DISTRIBUTION WIDTH 15.4 % (11.5-14.5); RED BLOOD CELL CT 2.59 /CUMM (4.70-6.10); WHITE BLOOD CELL COUNT 11.1 /CUMM (4.8-10.8)
--- NOTE | 2017-07-05 09:13 | Admission Certification ---
Admission Certification Certification Statement - As attending physician, I certify that at the time of - admission, based on clinical presentation, severity of - symptoms, need for further diagnostic testing and - therapeutic interventions, and risk of adverse outcomes - without in-hospital treatment, in my clinical assessment, - this patient requires an acute hospital stay for a minimum - of two nights or longer. I have also considered psychsocial - factors such as support system, advanced age, financial - issues, cognitive issues, and failed out-patient treatments, - past re-admission history, safety of patient, and lack of - compliance as applicable. Specific rationale supporting this admission is: Failure to thrive, FRANCO on CKD, dehydration, hyperkalemia.
--- NOTE | 2017-07-05 11:12 | Cons- Nephrology ---
General Information and HPI Consulting Request Date of Consult: 07/05/17 Requested By: Db DAHL,Nathaniel Source of Information: old records, H&P, ER notes Exam Limitations: not alert/orientated, clinical condition, confusion, dementia History of Present Illness: This 82-year-old gentleman with a history of dementia reportedly of the Alzheimer's type found essentially bedridden not eating and not drinking at home. He apparently lives near his daughter to the notes she lives upstairs but lives independently. Reviewing the record, since the history is not obtainable from the patient, he had an episode of acute kidney injury for which she had been seen [facility] in May 2016. At the time, there were concerns that his changing renal function was related to overdiuresis. There is no history of renal disease. Unfortunately the family had left before being seen by this technical report writer. He was also noted, that with placement of a Neves catheter , 1000 mL were obtained from the bladder. There is no mention as to whether or not he had fever or chills. He was noted be hypotensive when he arrived in the ER and actually was seen by EMS in the field. Allergies/Medications Allergies: Coded Allergies: Penicillins (SWELLING 05/26/16) Home Med List: Allopurinol 300 MG TABLET 1 TAB PO DAILY GOUT (Reported) Ergocalciferol (Vitamin D2) (Vitamin D2) 50,000 UNIT CAPSULE 1 CAP PO EVERY 10 DAY SUPPLEMENT (Reported) Finasteride (Proscar) 5 MG TABLET 1 TAB PO QPM BLADDER HEALTH (Reported) Furosemide (Lasix) 40 MG TABLET 1 TAB PO BID HEART HEALTH (Reported) Glipizide (Glipizide ER) 2.5 MG TAB.ER.24 1 TAB PO BID DIABETES (Reported) Hydralazine HCl 25 MG TABLET 1 TAB PO BID HTN (Reported) Levothyroxine Sodium (Synthroid) 50 MCG TABLET 1 TAB PO DAILY THYROID ( Reported) Memantine HCl (Namenda XR) 14 MG CAP.SPR.24 1 CAP PO DAILY ALZHEIMERS ( Reported) Metformin HCl (Metformin HCl ER) 500 MG TAB.ER.24H 2 TAB PO BID DIABETES ( Reported) Metoprolol Succinate 25 MG TAB 1 TAB PO DAILY HTN (Reported) Nifedipine (Nifedipine ER) 30 MG TAB.ER.24 1 TAB PO DAILY HTN (Reported) Pravastatin Sodium (Pravachol) 40 MG TABLET 1 TAB PO DAILY HIGH CHOLESTROL ( Reported) Tamsulosin HCl (Flomax) 0.4 MG CAP.ER.24H 1 CAP PO QPM BLADDER HEALTH ( Reported) Current Medications: Current Medications Sig/Jimmie Start time Last Medication Dose Route Stop Time Status Admin Dextrose/Lactated 1,000 ML Q13H 07/05 0300 AC 07/05 Ringer's IV 0438 Finasteride 5 MG QPM 07/05 2200 AC PO Heparin Sodium 0 .STK-MED ONE 07/05 0623 DC (Porcine) .ROUTE Heparin Sodium 5,000 UNIT Q8 07/05 0600 AC 07/05 (Porcine) SC 0623 Insulin Human Regular 0 Q6 07/05 0600 AC SC Levothyroxine Sodium 25 MCG DAILY 07/05 1000 AC 07/05 IV 1001 Memantine 5 MG BID 07/05 1000 AC 07/05 PO 1001 Sodium Chloride 1,000 ML BOLUS ONE 07/05 0230 DC 07/05 IV 07/05 0329 0250 Sodium Chloride 1,000 ML BOLUS ONE 07/05 0015 DC 07/05 IV 07/05 0114 0040 Tamsulosin HCl 0.4 MG QPM 07/05 2200 CAN PO Past History Travel History Traveled to [place] past 21 day No Medical History Neurological: Alzheimer's disease, TIA EENT: NONE Cardiovascular: CAD, CHF, hypertension, aortic aneurysm w/o f/u TIA CAD s/p balloon angioplasty stent Respiratory: NONE Gastrointestinal: NONE Hepatic: NONE Renal: bladder cancer s/p tumor resection BPH s/p TURP 2013, FRANCO d/t volume depletion, BPH Musculoskeletal: gout Psychiatric: NONE Endocrine: diabetes, hypothyroidism Blood Disorders: NONE Cancer(s): NONE OIL DIPPER/Reproductive: NONE Surgical History Surgical History: cad s/p balloon angioplasty stent bladder cancer s/p resection bph s/p TURP 2013, TURBT, TURP, laser excision of a vocal cord lesion Family History Relations & Conditions If Any: Relation not specified for: *No pertinent family history Psychosocial History Who Do You Live With? child Services at Home: Home Health Aide Primary Language: Solomon Islander Smoking Status: Unknown If Ever Smoked ETOH Use: denies use Living Will? yes Functional Ability ADLs Independent: dressing. Needs Assist: eating, toileting, bathing. Ambulation: walker IADLs Needs Assist: shopping, housework, finances, food prep, telephone, transportation, medication admin. Exam & Diagnostic Data Vital Signs and I&O Vital Signs Date Time Temp Pulse Resp B/P B/P Pulse O2 O2 Flow FiO2 Mean Ox Delivery Rate 07/05 0959 97.7 84 18 97/49 98 Nasal 2.0L Cannula 07/05 0617 96.0 65 22 101/55 100 Nasal 2.0L Cannula 07/05 0248 96.3 89 20 92/55 95 Nasal Cannula 07/05 0040 96.2 62 18 110/55 96 Room Air 07/04 2224 96 Nasal 2.0L Cannula 07/04 2223 68 18 103/49 96 Room Air Intake & Output 07/05 1600 07/05 0400 07/04 1600 07/04 0400 07/03 1600 07/03 0400 Intake Total 1000 1000 Output Total Balance 1000 1000 Intake, IV 1000 1000 Intake, Oral 0 Patient 150 lb 150 lb Weight Weight Estimated Measurement Method Physical Exam General Appearance: well developed/nourished, comfortable, lethargic Head: atraumatic, normal appearance Eyes: Bilateral: PERRL, EOMI, pale conjunctivae. Ears, Nose, Throat: hearing grossly normal Neck: normal inspection, supple Respiratory: normal breath sounds, chest non-tender, lungs clear Cardiovascular: regular rate/rhythm, edema Peripheral Pulses: 2+ popliteal (R), 2+ popliteal (L), 1+ tibialis posterior (R), 1+ tibialis posterior (L), 1+ dorsalis pedis (R), 1+ dorsalis pedis (L) Extremities: no edema, chronic venous stasis changes on the right medial malleolus. It almost has the appearance of a healed venous stasis ulcer Neurologic/Psych: disoriented x 3, arousable. Recognizes his name. Skin: intact, fingernails appears somewhat in need of cleaning. Reproductive: both testes descended, uncircumcised male with Neves catheter in place Results Pertinent Lab Results: Laboratory Tests 07/05 07/05 0615 0508 Chemistry Sodium (137 - 145 mmol/L) 147 H Potassium (3.5 - 5.1 mmol/L) 5.9 H Chloride (98 - 107 mmol/L) 105 Carbon Dioxide (22 - 30 mmol/L) 21 L Anion Gap (5 - 16) 21 H BUN (9 - 20 mg/dL) 96 H Creatinine (0.7 - 1.2 mg/dL) 5.0 H Estimated GFR (>60 ml/min) 11 L BUN/Creatinine Ratio (7 - 25 %) 19.2 Lactic Acid (0.7 - 2.1 mmol/L) 3.4 H Cancelled Hematology CBC w Diff MAN DIFF ORDERED WBC (4.8 - 10.8 /CUMM) 11.1 H RBC (4.70 - 6.10 /CUMM) 2.59 L Hgb (14.0 - 18.0 G/DL) 7.8 L Hct (42 - 52 %) 24.3 L MCV (80.0 - 94.0 FL) 93.9 MCH (27.0 - 31.0 PG) 30.3 RDW (11.5 - 14.5 %) 15.4 H Plt Count (130 - 400 /CUMM) 168 MPV (7.4 - 10.4 FL) 7.5 Gran % (42.2 - 75.2 %) 83.8 H Lymphocytes % (20.5 - 51.1 %) 13.1 L Monocytes % (1.7 - 9.3 %) 2.6 Eosinophils % (0 - 5 %) 0.1 Basophils % (0.0 - 2.0 %) 0.4 Absolute Granulocytes (1.4 - 6.5 /CUMM) 9.3 H Segmented Neutrophils (42.2 - 75.2 %) 77 H Absolute Lymphocytes (1.2 - 3.4 /CUMM) 1.4 Lymphocytes (20.5 - 51.1 %) 15 L Monocytes (1.7 - 9.3 %) 8 Absolute Monocytes (0.10 - 0.60 /CUMM) 0.3 Absolute Eosinophils (0.0 - 0.7 /CUMM) 0 Absolute Basophils (0.0 - 0.2 /CUMM) 0 Platelet Estimate (ADEQUATE) ADEQUATE Hypochromic-Microcytic 1+ Poikilocytosis 1+ Ovalocytes 1+ PUBS MCHC (33.0 - 37.0 G/DL) 32.3 L Other Body Source Fld Total RBCs Counted (%) 100 07/05 07/05 07/05 0400 0208 0022 Chemistry Lactic Acid (0.7 - 2.1 mmol/L) Cancelled Cancelled 4.5 H 07/04 07/04 2210 2200 Chemistry Sodium (137 - 145 mmol/L) 144 Potassium (3.5 - 5.1 mmol/L) 5.9 H Chloride (98 - 107 mmol/L) 101 Carbon Dioxide (22 - 30 mmol/L) 22 Anion Gap (5 - 16) 21 H BUN (9 - 20 mg/dL) 97 H Creatinine (0.7 - 1.2 mg/dL) 5.3 *H Estimated GFR (>60 ml/min) 10 L BUN/Creatinine Ratio (7 - 25 %) 18.3 Glucose (65 - 99 mg/dL) 149 H Lactic Acid (0.7 - 2.1 mmol/L) 4.3 H Calcium (8.4 - 10.2 mg/dL) 9.4 Total Bilirubin (0.2 - 1.3 mg/dL) 0.3 Direct Bilirubin (< 0.4 mg/dL) 0.3 AST (17 - 59 U/L) 71 H ALT (21 - 72 U/L) 37 Alkaline Phosphatase (< 127 U/L) 81 Troponin I (<0.11 ng/ml) 0.06 Total Protein (6.3 - 8.2 g/dL) 6.7 Albumin (3.5 - 5.0 g/dL) 3.5 Prealbumin (17.6 - 36.0 mg/dL) 13.5 L Amylase (30 - 110 U/L) 60 Lipase (23 - 300 U/L) 118 Vitamin B12 (239 - 931 pg/mL) 307 TSH (0.270 - 4.200 uIU/mL) 1.730 Hematology CBC w Diff NO MAN DIFF REQ WBC (4.8 - 10.8 /CUMM) 12.6 H RBC (4.70 - 6.10 /CUMM) 3.02 L Hgb (14.0 - 18.0 G/DL) 9.2 L Hct (42 - 52 %) 28.5 L MCV (80.0 - 94.0 FL) 94.4 H MCH (27.0 - 31.0 PG) 30.4 RDW (11.5 - 14.5 %) 15.3 H Plt Count (130 - 400 /CUMM) 219 MPV (7.4 - 10.4 FL) 7.3 L Gran % (42.2 - 75.2 %) 89.6 H Lymphocytes % (20.5 - 51.1 %) 8.8 L Monocytes % (1.7 - 9.3 %) 1.0 L Eosinophils % (0 - 5 %) 0.2 Basophils % (0.0 - 2.0 %) 0.4 Absolute Granulocytes (1.4 - 6.5 /CUMM) 11.3 H Absolute Lymphocytes (1.2 - 3.4 /CUMM) 1.1 L Absolute Monocytes (0.10 - 0.60 /CUMM) 0.1 Absolute Eosinophils (0.0 - 0.7 /CUMM) 0 Absolute Basophils (0.0 - 0.2 /CUMM) 0 PUBS MCHC (33.0 - 37.0 G/DL) 32.2 L Urines Urine Color (YEL,AMB,STR) YEL Urine Clarity (CLEAR) CLEAR Urine pH (5.0 - 8.0) 6.0 Ur Specific [place] (1.001 - 1.035) 1.020 Urine Protein (NEG,<30 MG/DL) NEG Urine Ketones (NEG) NEG Urine Nitrite (NEG) NEG Urine Bilirubin (NEG) NEG Urine Urobilinogen (0.1 - 1.0 EU/dl) 0.2 Ur Leukocyte Esterase (NEG) NEG Ur Microscopic SEDIMENT EXAMINED Urine RBC (0 - 5 /HPF) RARE Urine WBC (0 - 2 /HPF) RARE Ur Epithelial Cells (NONE,FEW) FEW Urine Bacteria (NEG/NONE) RARE H Hyaline Casts (0/LPF) RARE H Urine Mucus (FEW,NONE) RARE Urine Hemoglobin (NEG) TRACE-INTACT H Urine Glucose (N MG/DL) NEG Assessment/Plan Assessment/Recommendations Assessment: 1. Acute kidney injury. His serum creatinine was normal in December. He did have a previous episode of acute kidney injury in May 2016. At that time, the feeling was that this represented case of overdiuresis the setting of possible congestive heart failure. On this occasion, it is reported that he has had essentially failure to thrive for the past several days. He was on furosemide. In addition, when the Neves catheter was placed, 1000 mL of urine were obtained. He was also hypotensive upon presentation. This would raise to issues with regards to the kidney. Is he intravascularly volume depleted? As he possibly experiencing sepsis? Add to this he already stated possibility of obstructive uropathy. Is his acute decline in renal function related essentially all 3? He is receiving IV fluids. He has a history of bladder cancer. Bladder cancer by the description in the previous notes, was superficial. It did however recur at one point. He also has a history of benign prostatic hypertrophy and is status post transurethral prostatectomy. Clarify this it may be helpful to image the kidneys either with an ultrasound to exclude the possibility of obstruction higher up or, likely a better study, a CT of the abdomen without contrast. This is all in the setting of someone who is described as having dementia. He lives alone, but according to the notes, with closer preservation of his daughter. Dementia has been described as one of an Alzheimer's type. This would imply progression. Is generally not advised to offer dialysis in people with severe permanent neurologic impairment. Even in the acute setting, this would not be advisable. With regards to his previous studies, it is noted in the old record that his serum creatinine in April of this year was 3.3. With a creatinine of 1.0 or near 1.0 in December, this would imply that there was some sort of acute event between December and now. To that end, it is suspected that perhaps he was showing some signs of urinary obstruction in April. 2. Alzheimer's dementia. It is not clear how advanced his dementia is sense at this point, any cognitive decline may be a treatable to his acute illness. 3. Hypertension. He was hypotensive this morning clearly would hold any medications along those lines 4. Coronary artery disease. He is status post percutaneous transluminal coronary angioplasty. Is not clear to me when this was. 5. History of a bladder tumor. Again it is unclear looking through the records as to when this was, however, it did recur. Given that scenario it may be better that the CAT scan without contrast essentially using the stone protocol to exclude the possibility perhaps of obstruction higher up in the urinary tract. 6. History of benign prostatic hypertrophy 7. History of hypothyroidism. Given this acute cognitive decline or seemingly so it may be worthwhile to check a T4 and TSH or specifically a TSH to assess how well or not well his hypothyroidism is being treated. 8. Hyperkalemia. This is in the setting of acute kidney injury with the thousand cc in his bladder. It is hoped the placement of the Neves will resolve this issue keep in mind in addition to his acute kidney injury he was on lisinopril. Recommendations: 1. Would send a urine culture and urinalysis if the urine culture is not yet been done 2. Would also send a urine sodium creatinine and potassium all of these being spot entities 3. Please obtain a CT of the abdomen using the stone protocol without contrast to exclude the possibility of obstruction higher up in the tract. 4. Volume status remains unclear. By history, it is suggested that perhaps he is volume depleted. His skin turgor is actually fairly good. Keep in mind, this technical report writer is seen with patient after resuscitative efforts have been initiated. 5. Do not favor checking for paraproteinemia 6. If he fails to improve, it would seem that a discussion with regards to goals of care ought to be initiated. Specifically, if he fails to improve hospice would be the past alternative.
--- NOTE | 2017-07-05 12:25 | PN- Att Addend ---
Attending Addendum Attending Brief Note Patient seen and examined, he was very sleepy and was hard to arouse. Patient has dementia. I also spoke with patient's daughters at bedside. Vital Signs Date Time Temp Pulse Resp B/P B/P Pulse O2 O2 Flow FiO2 Mean Ox Delivery Rate 07/05 1117 68 18 99/56 100 Nasal 2.0L Cannula 07/05 0959 97.7 84 18 97/49 98 Nasal 2.0L Cannula 07/05 0617 96.0 65 22 101/55 100 Nasal 2.0L Cannula 07/05 0248 96.3 89 20 92/55 95 Nasal Cannula 07/05 0040 96.2 62 18 110/55 96 Room Air 07/04 2224 96 Nasal 2.0L Cannula 07/04 2223 68 18 103/49 96 Room Air on exam; sleepy, difficult to arouse. cv; s1,s2, rrr resp; clear abd; soft, nt, bs+ ext; + edema. skin; unstajable decub ulcer. Laboratory Tests 07/05 07/05 0615 0508 Chemistry Sodium (137 - 145 mmol/L) 147 H Potassium (3.5 - 5.1 mmol/L) 5.9 H Chloride (98 - 107 mmol/L) 105 Carbon Dioxide (22 - 30 mmol/L) 21 L Anion Gap (5 - 16) 21 H BUN (9 - 20 mg/dL) 96 H Creatinine (0.7 - 1.2 mg/dL) 5.0 H Estimated GFR (>60 ml/min) 11 L BUN/Creatinine Ratio (7 - 25 %) 19.2 Lactic Acid (0.7 - 2.1 mmol/L) 3.4 H Cancelled Hematology CBC w Diff MAN DIFF ORDERED WBC (4.8 - 10.8 /CUMM) 11.1 H RBC (4.70 - 6.10 /CUMM) 2.59 L Hgb (14.0 - 18.0 G/DL) 7.8 L Hct (42 - 52 %) 24.3 L MCV (80.0 - 94.0 FL) 93.9 MCH (27.0 - 31.0 PG) 30.3 RDW (11.5 - 14.5 %) 15.4 H Plt Count (130 - 400 /CUMM) 168 MPV (7.4 - 10.4 FL) 7.5 Gran % (42.2 - 75.2 %) 83.8 H Lymphocytes % (20.5 - 51.1 %) 13.1 L Monocytes % (1.7 - 9.3 %) 2.6 Eosinophils % (0 - 5 %) 0.1 Basophils % (0.0 - 2.0 %) 0.4 Absolute Granulocytes (1.4 - 6.5 /CUMM) 9.3 H Segmented Neutrophils (42.2 - 75.2 %) 77 H Absolute Lymphocytes (1.2 - 3.4 /CUMM) 1.4 Lymphocytes (20.5 - 51.1 %) 15 L Monocytes (1.7 - 9.3 %) 8 Absolute Monocytes (0.10 - 0.60 /CUMM) 0.3 Absolute Eosinophils (0.0 - 0.7 /CUMM) 0 Absolute Basophils (0.0 - 0.2 /CUMM) 0 Platelet Estimate (ADEQUATE) ADEQUATE Hypochromic-Microcytic 1+ Poikilocytosis 1+ Ovalocytes 1+ PUBS MCHC (33.0 - 37.0 G/DL) 32.3 L Other Body Source Fld Total RBCs Counted (%) 100 07/05 07/05 07/05 0400 0208 0022 Chemistry Lactic Acid (0.7 - 2.1 mmol/L) Cancelled Cancelled 4.5 H 07/04 07/04 2210 2200 Chemistry Sodium (137 - 145 mmol/L) 144 Potassium (3.5 - 5.1 mmol/L) 5.9 H Chloride (98 - 107 mmol/L) 101 Carbon Dioxide (22 - 30 mmol/L) 22 Anion Gap (5 - 16) 21 H BUN (9 - 20 mg/dL) 97 H Creatinine (0.7 - 1.2 mg/dL) 5.3 *H Estimated GFR (>60 ml/min) 10 L BUN/Creatinine Ratio (7 - 25 %) 18.3 Glucose (65 - 99 mg/dL) 149 H Lactic Acid (0.7 - 2.1 mmol/L) 4.3 H Calcium (8.4 - 10.2 mg/dL) 9.4 Total Bilirubin (0.2 - 1.3 mg/dL) 0.3 Direct Bilirubin (< 0.4 mg/dL) 0.3 AST (17 - 59 U/L) 71 H ALT (21 - 72 U/L) 37 Alkaline Phosphatase (< 127 U/L) 81 Troponin I (<0.11 ng/ml) 0.06 Total Protein (6.3 - 8.2 g/dL) 6.7 Albumin (3.5 - 5.0 g/dL) 3.5 Prealbumin (17.6 - 36.0 mg/dL) 13.5 L Amylase (30 - 110 U/L) 60 Lipase (23 - 300 U/L) 118 Vitamin B12 (239 - 931 pg/mL) 307 TSH (0.270 - 4.200 uIU/mL) 1.730 Hematology CBC w Diff NO MAN DIFF REQ WBC (4.8 - 10.8 /CUMM) 12.6 H RBC (4.70 - 6.10 /CUMM) 3.02 L Hgb (14.0 - 18.0 G/DL) 9.2 L Hct (42 - 52 %) 28.5 L MCV (80.0 - 94.0 FL) 94.4 H MCH (27.0 - 31.0 PG) 30.4 RDW (11.5 - 14.5 %) 15.3 H Plt Count (130 - 400 /CUMM) 219 MPV (7.4 - 10.4 FL) 7.3 L Gran % (42.2 - 75.2 %) 89.6 H Lymphocytes % (20.5 - 51.1 %) 8.8 L Monocytes % (1.7 - 9.3 %) 1.0 L Eosinophils % (0 - 5 %) 0.2 Basophils % (0.0 - 2.0 %) 0.4 Absolute Granulocytes (1.4 - 6.5 /CUMM) 11.3 H Absolute Lymphocytes (1.2 - 3.4 /CUMM) 1.1 L Absolute Monocytes (0.10 - 0.60 /CUMM) 0.1 Absolute Eosinophils (0.0 - 0.7 /CUMM) 0 Absolute Basophils (0.0 - 0.2 /CUMM) 0 PUBS MCHC (33.0 - 37.0 G/DL) 32.2 L Urines Urine Color (YEL,AMB,STR) YEL Urine Clarity (CLEAR) CLEAR Urine pH (5.0 - 8.0) 6.0 Ur Specific [place] (1.001 - 1.035) 1.020 Urine Protein (NEG,<30 MG/DL) NEG Urine Ketones (NEG) NEG Urine Nitrite (NEG) NEG Urine Bilirubin (NEG) NEG Urine Urobilinogen (0.1 - 1.0 EU/dl) 0.2 Ur Leukocyte Esterase (NEG) NEG Ur Microscopic SEDIMENT EXAMINED Urine RBC (0 - 5 /HPF) RARE Urine WBC (0 - 2 /HPF) RARE Ur Epithelial Cells (NONE,FEW) FEW Urine Bacteria (NEG/NONE) RARE H Hyaline Casts (0/LPF) RARE H Urine Mucus (FEW,NONE) RARE Urine Hemoglobin (NEG) TRACE-INTACT H Urine Glucose (N MG/DL) NEG A/P; 82 y/o M with pmh sig for CAD S/P stent, bladder cancer s/p resection, BPH S/P TURP, hypothyroidism, DM, gout, TIA, end stage dementia, aortic aneurysm, Ch diastlic CHF admitted with generalized weakness, acute on chronic renal failure, unstageable decubitus ulcer, dehydration. Appreciate nephrology input. CT scan abdomen and pelvis does not show any evidence of hydronephrosis or hydroureter or nephrolithiasis. Continue IV fluids and monitor creatinine. We'll continue to hold all the nephrotoxic medications. Patient needs wound care consult and aggressive wound care. Patient needs physical therapy. DVT px; Hep sq. D/W patient's daughters.
--- NOTE | 2017-07-05 14:06 | Cons- Wound Care ---
General Information and HPI Consulting Request Date of Consult: 07/05/17 Requested By: Db DAHL,Curtalakshmi Reason for Consult: Bilateral unstageable buttock ulcers present on admission History of Present Illness: Patient is 82-year-old gentleman brought in by his daughter because of altered mental status dehydration and bilateral buttock ulcers. He has advanced dementia living at home who developed diarrhea in the setting of probable stage I pressure ulcer. Rapidly progressed to large bilateral areas of deep tissue injury. As well there are areas of dry eschar which is black in color. There does not appear to be complicating soft tissue skin infection Allergies/Medications Allergies: Coded Allergies: Penicillins (SWELLING 05/26/16) Home Med List: Allopurinol 300 MG TABLET 1 TAB PO DAILY GOUT (Reported) Ergocalciferol (Vitamin D2) (Vitamin D2) 50,000 UNIT CAPSULE 1 CAP PO EVERY 10 DAY SUPPLEMENT (Reported) Finasteride (Proscar) 5 MG TABLET 1 TAB PO QPM BLADDER HEALTH (Reported) Furosemide (Lasix) 40 MG TABLET 1 TAB PO BID HEART HEALTH (Reported) Glipizide (Glipizide ER) 2.5 MG TAB.ER.24 1 TAB PO BID DIABETES (Reported) Hydralazine HCl 25 MG TABLET 1 TAB PO BID HTN (Reported) Levothyroxine Sodium (Synthroid) 50 MCG TABLET 1 TAB PO DAILY THYROID ( Reported) Memantine HCl (Namenda XR) 14 MG CAP.SPR.24 1 CAP PO DAILY ALZHEIMERS ( Reported) Metformin HCl (Metformin HCl ER) 500 MG TAB.ER.24H 2 TAB PO BID DIABETES ( Reported) Metoprolol Succinate 25 MG TAB 1 TAB PO DAILY HTN (Reported) Nifedipine (Nifedipine ER) 30 MG TAB.ER.24 1 TAB PO DAILY HTN (Reported) Pravastatin Sodium (Pravachol) 40 MG TABLET 1 TAB PO DAILY HIGH CHOLESTROL ( Reported) Tamsulosin HCl (Flomax) 0.4 MG CAP.ER.24H 1 CAP PO QPM BLADDER HEALTH ( Reported) Past History Travel History Traveled to [place] past 21 day No (uunobtainable) Medical History Neurological: Alzheimer's disease, TIA EENT: NONE Cardiovascular: CAD, CHF, hypertension, aortic aneurysm w/o f/u TIA CAD s/p balloon angioplasty stent Respiratory: NONE Gastrointestinal: NONE Hepatic: NONE Renal: benign prost hyperplasia, bladder cancer s/p tumor resection BPH s/p TURP 2013 FRANCO d/t volume depletion Musculoskeletal: gout Psychiatric: NONE Endocrine: diabetes, hypothyroidism Blood Disorders: NONE Cancer(s): NONE 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 child Services at Home: Home Health Aide Primary Language: Turkish Smoking Status: Unknown If Ever Smoked ETOH Use: denies use Living Will? yes Functional Ability ADLs Independent: dressing. Needs Assist: eating, toileting, bathing. Ambulation: walker IADLs Needs Assist: shopping, housework, finances, food prep, telephone, transportation, medication admin. Exam & Diagnostic Data Vital Signs and I&O Vital Signs Result Date Time B/P 91/50 07/05 1332 Temp 98.0 07/05 1332 Pulse 70 07/05 1332 Resp 16 07/05 1332 Pulse Ox 100 07/05 1117 O2 Delivery Nasal Cannula 07/05 1117 O2 Flow Rate 2.0L 07/05 1117 Intake & Output 07/05 0000 07/04 1600 07/04 0800 Intake Total 0 Output Total Balance 0 Intake, Oral 0 Patient 150 lb Weight Weight Estimated Measurement Method Buttocks shows extensive areas of deep tissue injury measuring approximately 15 cm x 20 cm within this are areas of dry black eschar to undermining sinus tracking or suggestion of soft tissue skin infection Assessment/Plan Impression/Plan: 82-year-old gentleman with advanced dementia multiple medical problems admitted with acute kidney injury lactic acidosis and extensive areas of deep tissue injury to his bilateral buttocks present on admission. Commended placement on a Cl[place]ron bed. She should be turned frequently. Diarrhea persists use of barrier cream would be appropriate. Should he have further breakdown likely to be healing would be extremely small. Given his mental status and the extent of his area of ulceration Consult Acknowledgment - Thank you for your consult request.
[2017-07-05 16:00] VITALS: BP 134/61
[2017-07-05 21:50] LABS: ABSOLUTE BASOPHIL COUNT 0 /CUMM (0.0-0.2); ABSOLUTE EOSINOPHIL COUNT 0.1 /CUMM (0.0-0.7); ABSOLUTE GRANULOCYTE CT 7.8 /CUMM (1.4-6.5); ABSOLUTE LYMPH COUNT 1.2 /CUMM (1.2-3.4); ABSOLUTE MONOCYTE COUNT 0.2 /CUMM (0.10-0.60); BASOPHIL % 0.2 % (0.0-2.0); EOSINOPHIL % 0.8 % (0-5); HEMATOCRIT 24.4 % (42-52); MEAN CORPUSCULAR HGB 30.5 PG (27.0-31.0); MEAN CORPUSCULAR HGB CONC 32.3 G/DL (33.0-37.0); MEAN CORPUSCULAR VOLUME 94.2 FL (80.0-94.0); MEAN PLATELET VOLUME 7.6 FL (7.4-10.4); PLATELET COUNT 170 /CUMM (130-400); RBC DISTRIBUTION WIDTH 15.3 % (11.5-14.5); RED BLOOD CELL CT 2.59 /CUMM (4.70-6.10); WHITE BLOOD CELL COUNT 9.3 /CUMM (4.8-10.8)
[2017-07-05 21:52] LABS: GRANULOCYTE % 83.7 % (42.2-75.2)
[2017-07-05 23:00] VITALS: BP 116/54
[2017-07-06 04:10] LABS: ABSOLUTE BASOPHIL COUNT 0 /CUMM (0.0-0.2); ABSOLUTE EOSINOPHIL COUNT 0 /CUMM (0.0-0.7); ABSOLUTE LYMPH COUNT 0.8 /CUMM (1.2-3.4); ABSOLUTE MONOCYTE COUNT 0.3 /CUMM (0.10-0.60); BASOPHIL % 0 % (0.0-2.0); EOSINOPHIL % 0.5 % (0-5); HEMATOCRIT 23.3 % (42-52); MEAN CORPUSCULAR HGB 30.6 PG (27.0-31.0); MEAN CORPUSCULAR HGB CONC 32.4 G/DL (33.0-37.0); MEAN CORPUSCULAR VOLUME 94.4 FL (80.0-94.0); MEAN PLATELET VOLUME 7.2 FL (7.4-10.4); RBC DISTRIBUTION WIDTH 15.4 % (11.5-14.5); RED BLOOD CELL CT 2.47 /CUMM (4.70-6.10); WHITE BLOOD CELL COUNT 9.1 /CUMM (4.8-10.8)
[2017-07-06 04:43] LABS: GRANULOCYTE % 87.5 % (42.2-75.2); PLATELET COUNT 161 /CUMM (130-400)
[2017-07-06 06:38] VITALS: BP 144/57
--- NOTE | 2017-07-06 08:14 | PN- Housestaff ---
Subjective Follow-up For: FTT FRANCO Subjective: The patient was seen and examined. History taking and review of systems Limited given medical condition (dementia), oriented to person and place. Denies any headache, nausea, vomiting, dizziness, lightheadedness, abdominal pain, urinary symptoms. Hemoglobin dropped from 7.6 this morning to 7, VSS Review of Systems Constitutional: Reports: no symptoms. Objective Last 24 Hrs of Vital Signs/I&O Vital Signs Date Time Temp Pulse Resp B/P B/P Pulse O2 O2 Flow FiO2 Mean Ox Delivery Rate 07/06 1600 Nasal 3.0L Cannula 07/06 1432 98.3 87 18 116/60 98 Nasal 3.0L Cannula 07/06 1430 96 Nasal 2.0L Cannula 07/06 1349 98.7 88 20 136/61 94 Room Air 07/06 0638 98.9 90 22 144/57 94 Nasal 2.0L Cannula 07/06 0000 97 Nasal 2.0L Cannula 07/05 2325 98.7 129 18 116/54 95 Room Air 07/05 2300 98.7 90 18 116/54 95 Room Air Intake & Output 07/06 1600 07/06 0800 07/06 0000 Intake Total 830 Output Total 300 125 200 Balance -300 705 -200 Intake, IV 800 Intake, Oral 30 Output, Urine 300 125 200 Patient 84 lb 0.01 oz Weight Weight Reported by Patient Measurement Method Physical Exam General Appearance: Alert Skin: Extensive wound on buttocks, no pus or erythema HEENT: Atraumatic Neck: Supple Cardiovascular: Regular Rate, Normal S1, Normal S2, No Murmurs, Gallops, Rubs Lungs: Clear to Auscultation, Normal Air Movement Abdomen: Normal Bowel Sounds, Soft, No Tenderness, No Hepatospenomegaly, No Masses Extremities: Trace edema BL Vascular: Normal Pulses, Pulses Symmetrical Current Medications: Current Medications Sig/Jimmie Start time Last Medication Dose Route Stop Time Status Admin Collagenase 1 DEN DAILY 07/06 1830 AC TOP Dextrose 12.5 GM ONCE ONE 07/06 1615 DC 07/06 IV 07/06 161 1615 Dextrose 25 GM ONCE ONE 07/06 0645 DC 07/06 IV 07/06 0646 0650 Dextrose 25 GM ONCE ONE 07/05 2044 DC 07/05 IV 07/05 Dextrose/Lactated 1,000 ML .Q6H40M 07/06 0630 DC Ringer's IV Dextrose/Lactated 1,000 ML Q13H 07/05 0300 DC 07/05 Ringer's IV 1607 Dextrose/Sodium 1,000 ML Q10H 07/06 0930 AC 07/06 Chloride IV 1610 Dextrose/Sodium 1,000 ML Q10H 07/05 2045 DC 07/05 Chloride IV 07/06 1644 2045 Finasteride 5 MG QPM 07/05 2200 AC 07/05 PO 2201 Heparin Sodium 0 .STK-MED ONE 07/06 0613 DC (Porcine) .ROUTE Heparin Sodium 5,000 UNIT Q8 07/05 0600 DC 07/06 (Porcine) SC 0624 Influenza Virus 0.5 ML ONCE ONE 07/06 1745 DC Vaccine IM 07/06 1746 Insulin Human Regular 0 Q6 07/05 0600 DC SC Levothyroxine Sodium 25 MCG DAILY 07/05 1000 AC 07/05 IV 1001 Memantine 5 MG BID 07/05 1000 AC 07/05 PO 2201 Sodium Chloride 1,000 ML Q6H 07/06 0645 DC 07/06 IV 0655 Sodium Chloride 1,000 ML Q6H 07/06 0445 DC IV Last 24 Hrs of Lab/Danny Results Last 24 Hrs of Labs/Mics: Laboratory Tests 07/06/17 1015: Anion Gap 15, Estimated GFR 10 L, BUN/Creatinine Ratio 17.0, Iron 14 L, TIBC 167 L, Ferritin 178.0, 25-OH Vitamin D Total 74.0, Folate 7.3, CBC w Diff NO MAN DIFF REQ, RBC 2.35 L, MCV 95.0 H, MCH 29.8, RDW 15.5 H, MPV 7.1 L, Gran % 86.7 H, Lymphocytes % 9.7 L, Monocytes % 2.8, Eosinophils % 0.7, Basophils % 0.1, Absolute Granulocytes 7.0 H, Absolute Lymphocytes 0.8 L, Absolute Monocytes 0.2, Absolute Eosinophils 0.1, Absolute Basophils 0, PUBS MCHC 31.4 L , Retic Count 2.34 H 07/06/17 0600: Sodium Cancelled, Potassium Cancelled, Chloride Cancelled, Carbon Dioxide Cancelled, Anion Gap Cancelled, BUN Cancelled, Creatinine Cancelled, BUN/ Creatinine Ratio Cancelled, CBC w Diff Cancelled, WBC Cancelled, RBC Cancelled, Hgb Cancelled, Hct Cancelled, MCV Cancelled, MCH Cancelled, RDW Cancelled, Plt Count Cancelled, MPV Cancelled, PUBS MCHC Cancelled 07/06/17 0354: Anion Gap 17 H, Estimated GFR 10 L, BUN/Creatinine Ratio 18.0, CBC w Diff NO MAN DIFF REQ, RBC 2.47 L, MCV 94.4 H, MCH 30.6, RDW 15.4 H, MPV 7.2 L, Gran % 87.5 H, Lymphocytes % 9.2 L, Monocytes % 2.8, Eosinophils % 0.5, Basophils % 0, Absolute Granulocytes 8.0 H, Absolute Lymphocytes 0.8 L, Absolute Monocytes 0.3, Absolute Eosinophils 0, Absolute Basophils 0, PUBS MCHC 32.4 L 07/05/17 2015: CBC w Diff NO MAN DIFF REQ, RBC 2.59 L, MCV 94.2 H, MCH 30.5, RDW 15.3 H, MPV 7.6, Gran % 83.7 H, Lymphocytes % 12.6 L, Monocytes % 2.7, Eosinophils % 0.8, Basophils % 0.2, Absolute Granulocytes 7.8 H, Absolute Lymphocytes 1.2, Absolute Monocytes 0.2, Absolute Eosinophils 0.1, Absolute Basophils 0, PUBS MCHC 32.3 L Assessment/Plan Assessment: 82 years old with multiple past medical Hx and end-stage dementia was admitted for failure to thrive and altered mentation. Problem list: # FTT # FRANCO # hypotension # lactic acidosis # none-stagable sacral wound # DM # diarrhea ?? C. diff # BPH #Acute blood loss anemia #Episodes of hypoglycemia Plan * Status post swallow eval, was started on pure honey thickened liquid diet. * Fingersticks every 2 hours * Patient has not received any sliding scale insulin, will discontinue * Wound consult appreciated * IV hydration with D5 normal saline @ 75 ml/hr * Hold diuretics, and antihypertensive medication, finasteride * Continue tamsulosin * Follow-up C. difficile screening * Repeat labs in the a.m. Problem List: 1. Failure to thrive Pain Ratin Pain Location: NA Pain Goal: Remain pain free Pain Plan: NA Tomorrow's Labs & Rationales: CBC to monitor H&H BEP to monitor electrolytes
[2017-07-06 10:30] LABS: ABSOLUTE BASOPHIL COUNT 0 /CUMM (0.0-0.2); ABSOLUTE EOSINOPHIL COUNT 0.1 /CUMM (0.0-0.7); ABSOLUTE LYMPH COUNT 0.8 /CUMM (1.2-3.4); ABSOLUTE MONOCYTE COUNT 0.2 /CUMM (0.10-0.60); EOSINOPHIL % 0.7 % (0-5); WHITE BLOOD CELL COUNT 8.1 /CUMM (4.8-10.8)
[2017-07-06 10:44] LABS: BASOPHIL % 0.1 % (0.0-2.0); GRANULOCYTE % 86.7 % (42.2-75.2); HEMATOCRIT 22.4 % (42-52); MEAN CORPUSCULAR HGB 29.8 PG (27.0-31.0); MEAN CORPUSCULAR HGB CONC 31.4 G/DL (33.0-37.0); MEAN PLATELET VOLUME 7.1 FL (7.4-10.4); PLATELET COUNT 167 /CUMM (130-400); RBC DISTRIBUTION WIDTH 15.5 % (11.5-14.5); RED BLOOD CELL CT 2.35 /CUMM (4.70-6.10)
--- NOTE | 2017-07-06 11:22 | PN- Att Addend ---
Attending Addendum Attending Brief Note Patient and examined, more awake today but still confused. Patient's daughters are sitting at bedside and confirmed that patient has dementia. Patient's H&H has dropped further and creatinine is worse today. Vital Signs Date Time Temp Pulse Resp B/P B/P Pulse O2 O2 Flow FiO2 Mean Ox Delivery Rate 07/06 0638 98.9 90 22 144/57 94 Nasal 2.0L Cannula 07/06 0000 97 Nasal 2.0L Cannula 07/05 2325 98.7 129 18 116/54 95 Room Air 07/05 2300 98.7 90 18 116/54 95 Room Air 07/05 1600 97.3 72 18 134/61 Nasal 2.0L Cannula 07/05 1332 98.0 70 16 91/50 07/05 1117 68 18 99/56 100 Nasal 2.0L Cannula on exam; awake, nad. cv; s1,s2, rrr resp; clear abd; soft, nt, bs+ ext; trace edema. skin: + sacral decub. Laboratory Tests 07/06 07/06 1015 0600 Chemistry Sodium (137 - 145 mmol/L) 147 H Cancelled Potassium (3.5 - 5.1 mmol/L) 5.2 H Cancelled Chloride (98 - 107 mmol/L) 111 H Cancelled Carbon Dioxide (22 - 30 mmol/L) 22 Cancelled Anion Gap (5 - 16) 15 Cancelled BUN (9 - 20 mg/dL) 95 H Cancelled Creatinine (0.7 - 1.2 mg/dL) 5.6 *H Cancelled Estimated GFR (>60 ml/min) 10 L BUN/Creatinine Ratio (7 - 25 %) 17.0 Cancelled Hematology CBC w Diff NO MAN DIFF REQ Cancelled WBC (4.8 - 10.8 /CUMM) 8.1 Cancelled RBC (4.70 - 6.10 /CUMM) 2.35 L Cancelled Hgb (14.0 - 18.0 G/DL) 7.0 *L Cancelled Hct (42 - 52 %) 22.4 L Cancelled MCV (80.0 - 94.0 FL) 95.0 H Cancelled MCH (27.0 - 31.0 PG) 29.8 Cancelled RDW (11.5 - 14.5 %) 15.5 H Cancelled Plt Count (130 - 400 /CUMM) 167 Cancelled MPV (7.4 - 10.4 FL) 7.1 L Cancelled Gran % (42.2 - 75.2 %) 86.7 H Lymphocytes % (20.5 - 51.1 %) 9.7 L Monocytes % (1.7 - 9.3 %) 2.8 Eosinophils % (0 - 5 %) 0.7 Basophils % (0.0 - 2.0 %) 0.1 Absolute Granulocytes (1.4 - 6.5 /CUMM) 7.0 H Absolute Lymphocytes (1.2 - 3.4 /CUMM) 0.8 L Absolute Monocytes (0.10 - 0.60 /CUMM) 0.2 Absolute Eosinophils (0.0 - 0.7 /CUMM) 0.1 Absolute Basophils (0.0 - 0.2 /CUMM) 0 PUBS MCHC (33.0 - 37.0 G/DL) 31.4 L Cancelled 07/06 Chemistry Sodium (137 - 145 mmol/L) 146 H Potassium (3.5 - 5.1 mmol/L) 5.3 H Chloride (98 - 107 mmol/L) 108 H Carbon Dioxide (22 - 30 mmol/L) 21 L Anion Gap (5 - 16) 17 H BUN (9 - 20 mg/dL) 99 H Creatinine (0.7 - 1.2 mg/dL) 5.5 *H Estimated GFR (>60 ml/min) 10 L BUN/Creatinine Ratio (7 - 25 %) 18.0 Hematology CBC w Diff NO MAN DIFF REQ NO MAN DIFF REQ WBC (4.8 - 10.8 /CUMM) 9.1 9.3 RBC (4.70 - 6.10 /CUMM) 2.47 L 2.59 L Hgb (14.0 - 18.0 G/DL) 7.6 L 7.9 L Hct (42 - 52 %) 23.3 L 24.4 L MCV (80.0 - 94.0 FL) 94.4 H 94.2 H MCH (27.0 - 31.0 PG) 30.6 30.5 RDW (11.5 - 14.5 %) 15.4 H 15.3 H Plt Count (130 - 400 /CUMM) 161 170 MPV (7.4 - 10.4 FL) 7.2 L 7.6 Gran % (42.2 - 75.2 %) 87.5 H 83.7 H Lymphocytes % (20.5 - 51.1 %) 9.2 L 12.6 L Monocytes % (1.7 - 9.3 %) 2.8 2.7 Eosinophils % (0 - 5 %) 0.5 0.8 Basophils % (0.0 - 2.0 %) 0 0.2 Absolute Granulocytes (1.4 - 6.5 /CUMM) 8.0 H 7.8 H Absolute Lymphocytes (1.2 - 3.4 /CUMM) 0.8 L 1.2 Absolute Monocytes (0.10 - 0.60 /CUMM) 0.3 0.2 Absolute Eosinophils (0.0 - 0.7 /CUMM) 0 0.1 Absolute Basophils (0.0 - 0.2 /CUMM) 0 0 PUBS MCHC (33.0 - 37.0 G/DL) 32.4 L 32.3 L A/P; 82 y/o M with pmh sig for CAD S/P stent, bladder cancer s/p resection, BPH S/P TURP, hypothyroidism, DM, gout, TIA, end stage dementia, aortic aneurysm, Ch diastlic CHF admitted with generalized weakness, acute on chronic renal failure, unstageable decubitus ulcer, dehydration, acute on chronic anemia. Patient had few episodes of hypoglycemia overnight. Patient's creatinine and H&H is worse today. We'll discuss with nephrology about further recommendations. Will transfuse one unit of PRBC. He has a Neves in. Continue to avoid any nephrotoxic medications. Please follow speech recommendations for diet. Please check stool for guaiac. At this point I will stop his heparin subcutaneous in lieu of dropping H&H. Patient's family was updated. Wound care as per Dr. Bunch. D/W nephro.
--- NOTE | 2017-07-06 11:36 | PN- Wound Care ---
Subjective Subjective: Remains confused now on a lower loss mattress in the emergency department. There is progressive necrosis in the area of deep tissue injury Objective Vital Signs and I&Os Vital Signs Result Date Time Pulse Ox 94 07/06 637 B/P 144/57 07/06 637 O2 Delivery Nasal Cannula 07/06 637 O2 Flow Rate 2.0L 07/06 637 Temp 98.9 07/06 637 Pulse 90 07/06 06 Resp 22 07/06 637 Intake & Output 07/06 0000 07/05 1600 07/05 0800 Intake Total 2000 Output Total 200 Balance -200 2000 Intake, IV 2000 Output, Urine 200 Patient 150 lb Weight There is further black eschar over the area of deep tissue injury there is minimal drainage no significant erythema Impression/Plan Impression/Plan Impression/Plan: 82-year-old gentleman with advanced dementia multiple medical problems admitted with acute kidney injury lactic acidosis and extensive areas of deep tissue injury to his bilateral buttocks present on admission. Commended placement on a Clinitron bed. She should be turned frequently. In view of increasing eschar would begin enzymatic debridement with Santyl and Xeroform on a daily basis. In view overall medical condition and age and dementia who will help to avoid formal surgical debridement
--- NOTE | 2017-07-06 12:25 | PN- Nephrology ---
Assessment/Plan Assessment: FRANCO - Likely 2/2 ATN in the setting of pre-renal azotemia + obstructive nephropathy - bland urine supportive of this. 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 Spoke to the family in detail about this and they are tentatively in agreement. Oliguric despite 3L of IVF - would favor continuing IVF although not at as aggressive of a rate given hx of HFpEF requiring home diuretics - if this is ATN , would get better with time - would not want to cause him to develop pulm edema. Hypernatremia - 2/2 decreased free water intake. Anemia - Dropping Hg likely 2/2 IVF. Does have baseline anemia even pre-dating any renal insufficiency. Suggestion: -Switch to D5 1/2 NS at 100cc/hr -Maintain levine catheter - continue to closely monitor I's/O's -Daily BMP -Check Urine sodium and creatinine to determine FENa and salt avidity -Check iron stores, ferritin, Vit B12, Folate, Retic count Please call [phone] with ?'s Subjective Subjective: SCr stable at 5.6 Kidneys had been without hydro on CT (1000cc UOP noted after levine placement) Na 147 2.8L IVF; 125cc UOP; SBP up to 140's Hg downtrending to 7.0 UCx neg (UA bland); afebrile; WBC 8.1 Objective Vital Signs and I&Os Vital Signs Date Time Temp Pulse Resp B/P B/P Pulse O2 O2 Flow FiO2 Mean Ox Delivery Rate 07/06 0638 98.9 90 22 144/57 94 Nasal 2.0L Cannula 07/06 0000 97 Nasal 2.0L Cannula 07/05 2325 98.7 129 18 116/54 95 Room Air 07/05 2300 98.7 90 18 116/54 95 Room Air 07/05 1600 97.3 72 18 134/61 Nasal 2.0L Cannula 07/05 1332 98.0 70 16 91/50 Intake & Output 07/06 1600 07/06 0400 07/05 1600 07/05 0400 07/04 0400 Intake Total 830 1000 1000 Output Total 125 200 Balance 705 -200 1000 1000 Intake, IV 800 1000 1000 Intake, Oral 30 0 Output, Urine 125 200 Patient 150 lb 150 lb Weight Weight Estimated Measurement Method Physical Exam: Gen - OK appearing HEENT - supple, JVP not clearly up although visible CV - RRR, no m/r/g Chest - clear, no w/r/r Abd - soft, NTND Ext - no edema Neuro - not oriented to person, place, or time Current Medications: Current Medications Sig/Jimmie Start time Last Medication Dose Route Stop Time Status Admin Dextrose 25 GM ONCE ONE 07/06 0645 DC 07/06 IV 07/06 0646 0650 Dextrose 25 GM ONCE ONE 07/05 2045 DC 07/05 IV 07/05 2046 2044 Dextrose 25 GM ONCE ONE 07/05 1445 DC 07/05 IV 07/05 1446 1445 Dextrose 0 .STK-MED ONE 07/05 1425 DC IV Dextrose/Lactated 1,000 ML .Q6H40M 07/06 0630 DC Ringer's IV Dextrose/Lactated 1,000 ML Q13H 07/05 0300 DC 07/05 Ringer's IV 1607 Dextrose/Sodium 1,000 ML Q10H 07/06 0930 AC Chloride IV Dextrose/Sodium 1,000 ML Q10H 07/05 2045 DC 07/05 Chloride IV 07/06 1644 2045 Finasteride 5 MG QPM 07/05 2200 AC 07/05 PO 2201 Heparin Sodium 0 .STK-MED ONE 07/06 0613 DC (Porcine) .ROUTE Heparin Sodium 5,000 UNIT Q8 07/05 0600 DC 07/06 (Porcine) SC 0624 Insulin Human Regular 0 Q6 07/05 0600 DC SC Levothyroxine Sodium 25 MCG DAILY 07/05 1000 AC 07/05 IV 1001 Memantine 5 MG BID 07/05 1000 AC 07/05 PO 2201 Sodium Chloride 1,000 ML Q6H 07/06 0645 DC 07/06 IV 0655 Sodium Chloride 1,000 ML Q6H 07/06 0445 DC IV Results Pertinent Lab Results: Laboratory Tests 07/06 07/06 1015 0600 Chemistry Sodium (137 - 145 mmol/L) 147 H Cancelled Potassium (3.5 - 5.1 mmol/L) 5.2 H Cancelled Chloride (98 - 107 mmol/L) 111 H Cancelled Carbon Dioxide (22 - 30 mmol/L) 22 Cancelled Anion Gap (5 - 16) 15 Cancelled BUN (9 - 20 mg/dL) 95 H Cancelled Creatinine (0.7 - 1.2 mg/dL) 5.6 *H Cancelled Estimated GFR (>60 ml/min) 10 L BUN/Creatinine Ratio (7 - 25 %) 17.0 Cancelled Hematology CBC w Diff NO MAN DIFF REQ Cancelled WBC (4.8 - 10.8 /CUMM) 8.1 Cancelled RBC (4.70 - 6.10 /CUMM) 2.35 L Cancelled Hgb (14.0 - 18.0 G/DL) 7.0 *L Cancelled Hct (42 - 52 %) 22.4 L Cancelled MCV (80.0 - 94.0 FL) 95.0 H Cancelled MCH (27.0 - 31.0 PG) 29.8 Cancelled RDW (11.5 - 14.5 %) 15.5 H Cancelled Plt Count (130 - 400 /CUMM) 167 Cancelled MPV (7.4 - 10.4 FL) 7.1 L Cancelled Gran % (42.2 - 75.2 %) 86.7 H Lymphocytes % (20.5 - 51.1 %) 9.7 L Monocytes % (1.7 - 9.3 %) 2.8 Eosinophils % (0 - 5 %) 0.7 Basophils % (0.0 - 2.0 %) 0.1 Absolute Granulocytes (1.4 - 6.5 /CUMM) 7.0 H Absolute Lymphocytes (1.2 - 3.4 /CUMM) 0.8 L Absolute Monocytes (0.10 - 0.60 /CUMM) 0.2 Absolute Eosinophils (0.0 - 0.7 /CUMM) 0.1 Absolute Basophils (0.0 - 0.2 /CUMM) 0 PUBS MCHC (33.0 - 37.0 G/DL) 31.4 L Cancelled 07/06 Chemistry Sodium (137 - 145 mmol/L) 146 H Potassium (3.5 - 5.1 mmol/L) 5.3 H Chloride (98 - 107 mmol/L) 108 H Carbon Dioxide (22 - 30 mmol/L) 21 L Anion Gap (5 - 16) 17 H BUN (9 - 20 mg/dL) 99 H Creatinine (0.7 - 1.2 mg/dL) 5.5 *H Estimated GFR (>60 ml/min) 10 L BUN/Creatinine Ratio (7 - 25 %) 18.0 Hematology CBC w Diff NO MAN DIFF REQ NO MAN DIFF REQ WBC (4.8 - 10.8 /CUMM) 9.1 9.3 RBC (4.70 - 6.10 /CUMM) 2.47 L 2.59 L Hgb (14.0 - 18.0 G/DL) 7.6 L 7.9 L Hct (42 - 52 %) 23.3 L 24.4 L MCV (80.0 - 94.0 FL) 94.4 H 94.2 H MCH (27.0 - 31.0 PG) 30.6 30.5 RDW (11.5 - 14.5 %) 15.4 H 15.3 H Plt Count (130 - 400 /CUMM) 161 170 MPV (7.4 - 10.4 FL) 7.2 L 7.6 Gran % (42.2 - 75.2 %) 87.5 H 83.7 H Lymphocytes % (20.5 - 51.1 %) 9.2 L 12.6 L Monocytes % (1.7 - 9.3 %) 2.8 2.7 Eosinophils % (0 - 5 %) 0.5 0.8 Basophils % (0.0 - 2.0 %) 0 0.2 Absolute Granulocytes (1.4 - 6.5 /CUMM) 8.0 H 7.8 H Absolute Lymphocytes (1.2 - 3.4 /CUMM) 0.8 L 1.2 Absolute Monocytes (0.10 - 0.60 /CUMM) 0.3 0.2 Absolute Eosinophils (0.0 - 0.7 /CUMM) 0 0.1 Absolute Basophils (0.0 - 0.2 /CUMM) 0 0 PUBS MCHC (33.0 - 37.0 G/DL) 32.4 L 32.3 L 07/05 07/05 0900 0615 Chemistry Sodium (137 - 145 mmol/L) 147 H Potassium (3.5 - 5.1 mmol/L) 5.9 H Chloride (98 - 107 mmol/L) 105 Carbon Dioxide (22 - 30 mmol/L) 21 L Anion Gap (5 - 16) 21 H BUN (9 - 20 mg/dL) 96 H Creatinine (0.7 - 1.2 mg/dL) 5.0 H Estimated GFR (>60 ml/min) 11 L BUN/Creatinine Ratio (7 - 25 %) 19.2 Lactic Acid (0.7 - 2.1 mmol/L) Cancelled 3.4 H Hematology CBC w Diff MAN DIFF ORDERED WBC (4.8 - 10.8 /CUMM) 11.1 H RBC (4.70 - 6.10 /CUMM) 2.59 L Hgb (14.0 - 18.0 G/DL) 7.8 L Hct (42 - 52 %) 24.3 L MCV (80.0 - 94.0 FL) 93.9 MCH (27.0 - 31.0 PG) 30.3 RDW (11.5 - 14.5 %) 15.4 H Plt Count (130 - 400 /CUMM) 168 MPV (7.4 - 10.4 FL) 7.5 Gran % (42.2 - 75.2 %) 83.8 H Lymphocytes % (20.5 - 51.1 %) 13.1 L Monocytes % (1.7 - 9.3 %) 2.6 Eosinophils % (0 - 5 %) 0.1 Basophils % (0.0 - 2.0 %) 0.4 Absolute Granulocytes (1.4 - 6.5 /CUMM) 9.3 H Segmented Neutrophils (42.2 - 75.2 %) 77 H Absolute Lymphocytes (1.2 - 3.4 /CUMM) 1.4 Lymphocytes (20.5 - 51.1 %) 15 L Monocytes (1.7 - 9.3 %) 8 Absolute Monocytes (0.10 - 0.60 /CUMM) 0.3 Absolute Eosinophils (0.0 - 0.7 /CUMM) 0 Absolute Basophils (0.0 - 0.2 /CUMM) 0 Platelet Estimate (ADEQUATE) ADEQUATE Hypochromic-Microcytic 1+ Poikilocytosis 1+ Ovalocytes 1+ PUBS MCHC (33.0 - 37.0 G/DL) 32.3 L Other Body Source Fld Total RBCs Counted (%) 100 07/05 07/05 07/05 07/05 0508 0400 0208 0022 Chemistry Lactic Acid (0.7 - 2.1 mmol/L) Cancelled Cancelled Cancelled 4.5 H 07/04 07/04 2210 2200 Chemistry Sodium (137 - 145 mmol/L) 144 Potassium (3.5 - 5.1 mmol/L) 5.9 H Chloride (98 - 107 mmol/L) 101 Carbon Dioxide (22 - 30 mmol/L) 22 Anion Gap (5 - 16) 21 H BUN (9 - 20 mg/dL) 97 H Creatinine (0.7 - 1.2 mg/dL) 5.3 *H Estimated GFR (>60 ml/min) 10 L BUN/Creatinine Ratio (7 - 25 %) 18.3 Glucose (65 - 99 mg/dL) 149 H Lactic Acid (0.7 - 2.1 mmol/L) 4.3 H Calcium (8.4 - 10.2 mg/dL) 9.4 Total Bilirubin (0.2 - 1.3 mg/dL) 0.3 Direct Bilirubin (< 0.4 mg/dL) 0.3 AST (17 - 59 U/L) 71 H ALT (21 - 72 U/L) 37 Alkaline Phosphatase (< 127 U/L) 81 Troponin I (<0.11 ng/ml) 0.06 Total Protein (6.3 - 8.2 g/dL) 6.7 Albumin (3.5 - 5.0 g/dL) 3.5 Prealbumin (17.6 - 36.0 mg/dL) 13.5 L Amylase (30 - 110 U/L) 60 Lipase (23 - 300 U/L) 118 Vitamin B12 (239 - 931 pg/mL) 307 TSH (0.270 - 4.200 uIU/mL) 1.730 Hematology CBC w Diff NO MAN DIFF REQ WBC (4.8 - 10.8 /CUMM) 12.6 H RBC (4.70 - 6.10 /CUMM) 3.02 L Hgb (14.0 - 18.0 G/DL) 9.2 L Hct (42 - 52 %) 28.5 L MCV (80.0 - 94.0 FL) 94.4 H MCH (27.0 - 31.0 PG) 30.4 RDW (11.5 - 14.5 %) 15.3 H Plt Count (130 - 400 /CUMM) 219 MPV (7.4 - 10.4 FL) 7.3 L Gran % (42.2 - 75.2 %) 89.6 H Lymphocytes % (20.5 - 51.1 %) 8.8 L Monocytes % (1.7 - 9.3 %) 1.0 L Eosinophils % (0 - 5 %) 0.2 Basophils % (0.0 - 2.0 %) 0.4 Absolute Granulocytes (1.4 - 6.5 /CUMM) 11.3 H Absolute Lymphocytes (1.2 - 3.4 /CUMM) 1.1 L Absolute Monocytes (0.10 - 0.60 /CUMM) 0.1 Absolute Eosinophils (0.0 - 0.7 /CUMM) 0 Absolute Basophils (0.0 - 0.2 /CUMM) 0 PUBS MCHC (33.0 - 37.0 G/DL) 32.2 L Urines Urine Color (YEL,AMB,STR) YEL Urine Clarity (CLEAR) CLEAR Urine pH (5.0 - 8.0) 6.0 Ur Specific [place] (1.001 - 1.035) 1.020 Urine Protein (NEG,<30 MG/DL) NEG Urine Ketones (NEG) NEG Urine Nitrite (NEG) NEG Urine Bilirubin (NEG) NEG Urine Urobilinogen (0.1 - 1.0 EU/dl) 0.2 Ur Leukocyte Esterase (NEG) NEG Ur Microscopic SEDIMENT EXAMINED Urine RBC (0 - 5 /HPF) RARE Urine WBC (0 - 2 /HPF) RARE Ur Epithelial Cells (NONE,FEW) FEW Urine Bacteria (NEG/NONE) RARE H Hyaline Casts (0/LPF) RARE H Urine Mucus (FEW,NONE) RARE Urine Hemoglobin (NEG) TRACE-INTACT H Urine Glucose (N MG/DL) NEG Imaging/Other Studies: CT KIDNEYS AND URETERS: The kidneys are normal in size, shape, and attenuation. No hydronephrosis, hydroureter, or calculi seen. Symmetric perinephric stranding. IMPRESSION: 1. No acute inflammatory changes of the bowel. No wall thickening. Diverticulosis without evidence of diverticulitis. 2. Wall thickening of the bladder with trabeculation and diverticula. This may be associated with a bladder outlet obstruction. Cystitis not excluded. The prostate is enlarged and heterogeneous. 3. Abdominal aortic aneurysm, measuring 4.6 cm in AP dimension. This demonstrates a slight increase compared to the previous study from 2014, measuring 4.3 cm at that time.
[2017-07-06 13:49] VITALS: BP 136/61
[2017-07-06 14:32] VITALS: BP 116/60
[2017-07-06 21:12] VITALS: BP 110/60
[2017-07-06 22:53] LABS: ABSOLUTE BASOPHIL COUNT 0 /CUMM (0.0-0.2); ABSOLUTE EOSINOPHIL COUNT 0.1 /CUMM (0.0-0.7); ABSOLUTE GRANULOCYTE CT 7.6 /CUMM (1.4-6.5); ABSOLUTE LYMPH COUNT 0.8 /CUMM (1.2-3.4); ABSOLUTE MONOCYTE COUNT 0.2 /CUMM (0.10-0.60); BASOPHIL % 0.1 % (0.0-2.0); EOSINOPHIL % 0.6 % (0-5); HEMATOCRIT 23.4 % (42-52); MEAN CORPUSCULAR HGB 29.6 PG (27.0-31.0); MEAN CORPUSCULAR VOLUME 92.4 FL (80.0-94.0); PLATELET COUNT 162 /CUMM (130-400); RBC DISTRIBUTION WIDTH 17.5 % (11.5-14.5); RED BLOOD CELL CT 2.54 /CUMM (4.70-6.10); WHITE BLOOD CELL COUNT 8.6 /CUMM (4.8-10.8)
[2017-07-06 22:54] LABS: GRANULOCYTE % 87.7 % (42.2-75.2)
[2017-07-07 06:18] VITALS: BP 114/50
--- NOTE | 2017-07-07 07:32 | PN- Housestaff ---
Sandra Gaffney 07/07/17 0732: Subjective Follow-up For: Failure to thrive acute renal failure Complaints: no complaints Subjective: Patient was seen and examined this morning. He was not complaining of any active issues. His current situation was discussed with his daughter present at the time of evaluation. He still oliguric and his stool was guaiac positive. Family is leaning towards home hospice and patient would be evaluated by hospice nurse tomorrow. Review of Systems Constitutional: Denies: chills, diaphoresis. Cardiovascular: Denies: chest pain, edema. Respiratory: Denies: cough, hemoptysis. Gastrointestinal: Reports: diarrhea. Denies: bloating. Genitourinary: Denies: dysuria, frequency. Objective Last 24 Hrs of Vital Signs/I&O Vital Signs Date Time Temp Pulse Resp B/P B/P Pulse O2 O2 Flow FiO2 Mean Ox Delivery Rate 07/07 0800 3.0L 07/07 0618 98.4 93 20 114/50 99 Nasal 3.0L Cannula 07/07 0000 97 Nasal 3.0L Cannula 07/06 2112 99.0 90 18 110/60 97 Nasal 3.0L Cannula 07/06 1600 Nasal 3.0L Cannula 07/06 1432 98.3 87 18 116/60 98 Nasal 3.0L Cannula 07/06 1430 96 Nasal 2.0L Cannula 07/06 1349 98.7 88 20 136/61 94 Room Air Intake & Output 07/07 1600 07/07 0800 07/07 0000 Intake Total 800 1280 Output Total 1 100 150 Balance -1 700 1130 Intake, IV 800 800 Intake, Oral 0 480 Number 0 Bowel Movements Output, Stool 1 Output, Urine 100 150 Physical Exam General Appearance: Alert, Cooperative, No Acute Distress Cardiovascular: Regular Rate, Normal S1, Normal S2 Lungs: Normal Air Movement Abdomen: Soft, No Tenderness Extremities: No Clubbing, No Cyanosis Current Medications: Current Medications Sig/Jimmie Start time Last Medication Dose Route Stop Time Status Admin Collagenase 1 DEN DAILY 07/06 1830 07/07 TOP 1103 Dextrose 12.5 GM ONCE ONE 07/06 1615 DC 07/06 IV 07/06 1616 1615 Dextrose/Sodium 1,000 ML Q10H 07/06 0930 AC 07/07 Chloride IV 0215 Finasteride 5 MG QPM 07/05 2200 AC 07/06 PO 202 Influenza Virus 0.5 ML ONCE ONE 07/06 1745 DC Vaccine IM 07/06 1746 Levothyroxine Sodium 25 MCG DAILY 07/05 1000 AC 07/07 IV 1135 Memantine 5 MG BID 07/05 1000 AC 07/07 PO 1103 Patient Medication 1 ED ONE ONE 07/07 1200 DC Teaching ED 07/07 1201 Last 24 Hrs of Lab/Danny Results Last 24 Hrs of Labs/Mics: Laboratory Tests 07/07/17 0740: Anion Gap 16, Estimated GFR 9 L, BUN/Creatinine Ratio 16.6, CBC w Diff NO MAN DIFF REQ, RBC 2.52 L, MCV 93.1, MCH 29.7, RDW 17.7 H, MPV 7.2 L, Gran % 85.6 H, Lymphocytes % 10.9 L, Monocytes % 2.0, Eosinophils % 1.5, Basophils % 0, Absolute Granulocytes 6.7 H, Absolute Lymphocytes 0.9 L, Absolute Monocytes 0.2, Absolute Eosinophils 0.1, Absolute Basophils 0, PUBS MCHC 31.9 L 07/06/172: CBC w Diff NO MAN DIFF REQ, RBC 2.54 L, MCV 92.4, MCH 29.6, RDW 17.5 H, MPV 7.0 L, Gran % 87.7 H, Lymphocytes % 8.9 L, Monocytes % 2.7, Eosinophils % 0.6 , Basophils % 0.1, Absolute Granulocytes 7.6 H, Absolute Lymphocytes 0.8 L, Absolute Monocytes 0.2, Absolute Eosinophils 0.1, Absolute Basophils 0, PUBS MCHC 32.0 L Assessment/Plan Assessment: 82 years old with multiple past medical Hx and end-stage dementia was admitted for failure to thrive and altered mentation. Problem list: # FTT most likely due to underlying advanced Alzheimer's dementia # FRANCO # hypotension # lactic acidosis # none-stagable sacral wound # DM # diarrhea ?? C. diff # BPH #Acute blood loss anemia #Episodes of hypoglycemia # Plan * Status post swallow eval, was started on pure honey thickened liquid diet. He is still hypernatremic but sodium is trending down from 147 07/22/1945. We will continue D5 half normal saline. His potassium is also within normal range today but his creatinine is still trending up. Nephrology is not recommending dialysis at this moment. Family is also leaning towards hospice evaluation and home hospice due to his current situation. * His blood sugars remained stable and we will change Accu-Cheks from every 2 hours to regular in the morning at night. * Patient has not received any sliding scale insulin, will discontinue * Wound consult appreciated * IV hydration with D5 normal saline @ 100 mils per hour * Hold diuretics, and antihypertensive medication, finasteride * Continue tamsulosin * We will start patient on Venofer 200 mg IV every other day for total of 5 doses as per nephrology recommendations. * Follow-up C. difficile screening * Repeat labs in the a.m. Problem List: 1. Failure to thrive 2. Dehydration 3. Hyperkalemia Pain Ratin Pain Location: na Pain Goal: Remain pain free Pain Plan: tylenol Tomorrow's Labs & Rationales: cbc bep Anthony DAHL,Ana Luisa 07/07/17 1131: Attending MD Review Statement Attending Statement Attending MD Statement: examined this patient, discuss w/resident/PA/ENROLLMENT MANAGEMENT DIRECTOR, agreed w/resident/PA/ENROLLMENT MANAGEMENT DIRECTOR, discussed with family, reviewed EMR data (avail), discussed with nursing, discussed with case mgmt, reviewed images, amended to note Attending Assessment/Plan: Patient seen and examined, he has advanced dementia therefore not able to communicate well. Patient's daughter is present at that site. H&H remained stable but creatinine kept on worsening. Vital Signs Date Time Temp Pulse Resp B/P B/P Pulse O2 O2 Flow FiO2 Mean Ox Delivery Rate 07/07 0800 3.0L 07/07 0618 98.4 93 20 114/50 99 Nasal 3.0L Cannula 07/07 0000 97 Nasal 3.0L Cannula 07/06 2112 99.0 90 18 110/60 97 Nasal 3.0L Cannula 07/06 1600 Nasal 3.0L Cannula 07/06 1432 98.3 87 18 116/60 98 Nasal 3.0L Cannula 07/06 1430 96 Nasal 2.0L Cannula 07/06 1349 98.7 88 20 136/61 94 Room Air on exam; awake, nad. cv; s1,s2, rrr resp; clear abd; soft, nt, bs+ ext; no edema. Laboratory Tests 07/07 07/06 0740 2222 Chemistry Sodium (137 - 145 mmol/L) 146 H Potassium (3.5 - 5.1 mmol/L) 5.1 Chloride (98 - 107 mmol/L) 109 H Carbon Dioxide (22 - 30 mmol/L) 20 L Anion Gap (5 - 16) 16 BUN (9 - 20 mg/dL) 98 H Creatinine (0.7 - 1.2 mg/dL) 5.9 *H Estimated GFR (>60 ml/min) 9 L BUN/Creatinine Ratio (7 - 25 %) 16.6 Hematology CBC w Diff NO MAN DIFF REQ NO MAN DIFF REQ WBC (4.8 - 10.8 /CUMM) 7.9 8.6 RBC (4.70 - 6.10 /CUMM) 2.52 L 2.54 L Hgb (14.0 - 18.0 G/DL) 7.5 L 7.5 L Hct (42 - 52 %) 23.4 L 23.4 L MCV (80.0 - 94.0 FL) 93.1 92.4 MCH (27.0 - 31.0 PG) 29.7 29.6 RDW (11.5 - 14.5 %) 17.7 H 17.5 H Plt Count (130 - 400 /CUMM) 150 162 MPV (7.4 - 10.4 FL) 7.2 L 7.0 L Gran % (42.2 - 75.2 %) 85.6 H 87.7 H Lymphocytes % (20.5 - 51.1 %) 10.9 L 8.9 L Monocytes % (1.7 - 9.3 %) 2.0 2.7 Eosinophils % (0 - 5 %) 1.5 0.6 Basophils % (0.0 - 2.0 %) 0 0.1 Absolute Granulocytes (1.4 - 6.5 /CUMM) 6.7 H 7.6 H Absolute Lymphocytes (1.2 - 3.4 /CUMM) 0.9 L 0.8 L Absolute Monocytes (0.10 - 0.60 /CUMM) 0.2 0.2 Absolute Eosinophils (0.0 - 0.7 /CUMM) 0.1 0.1 Absolute Basophils (0.0 - 0.2 /CUMM) 0 0 PUBS MCHC (33.0 - 37.0 G/DL) 31.9 L 32.0 L A/P; 82 y/o M with pmh sig for CAD S/P stent, bladder cancer s/p resection, BPH S/P TURP, hypothyroidism, DM, gout, TIA, end stage dementia, aortic aneurysm, Ch diastlic CHF admitted with generalized weakness, acute on chronic renal failure, unstageable decubitus ulcer, dehydration, acute on chronic anemia. Patient received RBC transfusion yesterday in H&H slightly improved. It remained stable today. Creatinine kept on worsening. Urine output remains on the lower side. Please discuss with nephrology for recommendations. Will continue to avoid any nephrotoxic medications. Wound care per Dr. Ferguson. Hypoglycemic episodes are improved after patient started to eat as well as has been kept on dextrose IV fluids. Guaiac stools were reported as positive. Please consult GI. DVT px; ALPS.
[2017-07-07 08:50] LABS: ABSOLUTE BASOPHIL COUNT 0 /CUMM (0.0-0.2); ABSOLUTE EOSINOPHIL COUNT 0.1 /CUMM (0.0-0.7); ABSOLUTE GRANULOCYTE CT 6.7 /CUMM (1.4-6.5); ABSOLUTE LYMPH COUNT 0.9 /CUMM (1.2-3.4); ABSOLUTE MONOCYTE COUNT 0.2 /CUMM (0.10-0.60); BASOPHIL % 0 % (0.0-2.0); EOSINOPHIL % 1.5 % (0-5); HEMATOCRIT 23.4 % (42-52); MEAN CORPUSCULAR HGB 29.7 PG (27.0-31.0); MEAN CORPUSCULAR HGB CONC 31.9 G/DL (33.0-37.0); MEAN CORPUSCULAR VOLUME 93.1 FL (80.0-94.0); MEAN PLATELET VOLUME 7.2 FL (7.4-10.4); PLATELET COUNT 150 /CUMM (130-400); RBC DISTRIBUTION WIDTH 17.7 % (11.5-14.5); RED BLOOD CELL CT 2.52 /CUMM (4.70-6.10); WHITE BLOOD CELL COUNT 7.9 /CUMM (4.8-10.8)
--- NOTE | 2017-07-07 09:53 | PN- Wound Care ---
Subjective Subjective: Remains on a low air loss mattress awaiting Clinitron bed. His wound is somewhat improved with some areas of deep tissue injury stating there still remains significant black eschar Objective Vital Signs and I&Os Vital Signs Result Date Time Pulse Ox 99 07/07 617 B/P 114/50 07/07 617 O2 Delivery Nasal Cannula 07/07 617 O2 Flow Rate 3.0L 07/07 617 Temp 98.4 07/07 617 Pulse 93 07/07 617 Resp 20 07/07 617 Intake & Output 07/07 0000 07/06 1600 07/06 0800 Intake Total 1280 830 Output Total 150 300 125 Balance 1130 -300 705 Intake, IV 800 800 Intake, Oral 480 30 Output, Urine 150 300 125 Patient 84 lb 0.01 oz Weight Weight Reported by Patient Measurement Method Large bilateral pressure injury ulcer is improved in some areas there remains a large area of black eschar to which Santyl and Xeroform are being utilized. Impression/Plan Impression/Plan Impression/Plan: 82-year-old gentleman with advanced dementia multiple medical problems admitted with acute kidney injury lactic acidosis and extensive areas of deep tissue injury to his bilateral buttocks present on admission. Placement on a Clinitron bed is pending continue frequent repositioning continue Santyl and Xeroform daily basis with wound cleansing
[2017-07-07 10:09] LABS: GRANULOCYTE % 85.6 % (42.2-75.2)
--- NOTE | 2017-07-07 12:51 | PN- Nephrology ---
Assessment/Plan Assessment: FRANCO - Likely 2/2 ATN in the setting of pre-renal azotemia + obstructive nephropathy - bland urine supportive of this. 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 Spoke to the family in detail about this and they are tentatively in agreement. Oliguric despite 3L of IVF - now on maintenance hypotonic fluid in the setting of hypernatremia and poor PO intake. Hypernatremia - 2/2 decreased free water intake. Anemia - Dropping Hg likely 2/2 IVF. Does have baseline anemia even pre-dating any renal insufficiency. Mildly iron deficient based on labs - can get replacement iron (prefer IV given renal failure). Suggestion: -Cont D5 1/2 NS at 100cc/hr -Maintain levine catheter - continue to closely monitor I's/O's -Daily BMP -Venofer 200mg every other day x5 doses Please call [phone] with ?'s Subjective Subjective: No clear change in clinical status according to the patient's daughter No SOB SCr 5.9 - 100cc UOP Na 146 Bicarb 20 Objective Vital Signs and I&Os Vital Signs Date Time Temp Pulse Resp B/P B/P Pulse O2 O2 Flow FiO2 Mean Ox Delivery Rate 07/07 0800 3.0L 07/07 0618 98.4 93 20 114/50 99 Nasal 3.0L Cannula 07/07 0000 97 Nasal 3.0L Cannula 07/06 2112 99.0 90 18 110/60 97 Nasal 3.0L Cannula 07/06 1600 Nasal 3.0L Cannula 07/06 1432 98.3 87 18 116/60 98 Nasal 3.0L Cannula 07/06 1430 96 Nasal 2.0L Cannula 07/06 1349 98.7 88 20 136/61 94 Room Air Intake & Output 07/07 1600 07/07 0400 07/06 1600 07/06 0400 07/05 1600 07/05 0400 Intake Total 800 9967 635 8792 1000 Output Total 101 150 425 200 Balance 699 1130 405 -200 1000 1000 Intake, IV 800 747 853 8310 1000 Intake, Oral 0 480 30 0 Number 0 Bowel Movements Output, Stool 1 Output, Urine 100 150 425 200 Patient 84 lb 0.01 oz 150 lb 150 lb Weight Weight Reported by Patient Estimated Measurement Method Physical Exam: Gen - OK appearing HEENT - supple, JVP not clearly up although visible CV - RRR, no m/r/g Chest - clear, no w/r/r Abd - soft, NTND Ext - no edema Neuro - not oriented to person, place, or time Current Medications: Current Medications Sig/Jimmie Start time Last Medication Dose Route Stop Time Status Admin Collagenase 1 DEN DAILY 07/06 1830 AC 07/07 TOP 1103 Dextrose 12.5 GM ONCE ONE 07/06 1615 DC 07/06 IV 07/06 1616 1615 Dextrose/Sodium 1,000 ML Q10H 07/06 0930 AC 07/07 Chloride IV 0215 Finasteride 5 MG QPM 07/05 2200 AC 07/06 PO 2028 Influenza Virus 0.5 ML ONCE ONE 07/06 1745 DC Vaccine IM 07/06 1746 Levothyroxine Sodium 25 MCG DAILY 07/05 1000 AC 07/07 IV 1135 Memantine 5 MG BID 07/05 1000 AC 07/07 PO 1103 Patient Medication 1 ED ONE ONE 07/07 1200 DC Teaching ED 07/07 1201 Results Pertinent Lab Results: Laboratory Tests 07/07 07/06 0740 2222 Chemistry Sodium (137 - 145 mmol/L) 146 H Potassium (3.5 - 5.1 mmol/L) 5.1 Chloride (98 - 107 mmol/L) 109 H Carbon Dioxide (22 - 30 mmol/L) 20 L Anion Gap (5 - 16) 16 BUN (9 - 20 mg/dL) 98 H Creatinine (0.7 - 1.2 mg/dL) 5.9 *H Estimated GFR (>60 ml/min) 9 L BUN/Creatinine Ratio (7 - 25 %) 16.6 Hematology CBC w Diff NO MAN DIFF REQ NO MAN DIFF REQ WBC (4.8 - 10.8 /CUMM) 7.9 8.6 RBC (4.70 - 6.10 /CUMM) 2.52 L 2.54 L Hgb (14.0 - 18.0 G/DL) 7.5 L 7.5 L Hct (42 - 52 %) 23.4 L 23.4 L MCV (80.0 - 94.0 FL) 93.1 92.4 MCH (27.0 - 31.0 PG) 29.7 29.6 RDW (11.5 - 14.5 %) 17.7 H 17.5 H Plt Count (130 - 400 /CUMM) 150 162 MPV (7.4 - 10.4 FL) 7.2 L 7.0 L Gran % (42.2 - 75.2 %) 85.6 H 87.7 H Lymphocytes % (20.5 - 51.1 %) 10.9 L 8.9 L Monocytes % (1.7 - 9.3 %) 2.0 2.7 Eosinophils % (0 - 5 %) 1.5 0.6 Basophils % (0.0 - 2.0 %) 0 0.1 Absolute Granulocytes (1.4 - 6.5 /CUMM) 6.7 H 7.6 H Absolute Lymphocytes (1.2 - 3.4 /CUMM) 0.9 L 0.8 L Absolute Monocytes (0.10 - 0.60 /CUMM) 0.2 0.2 Absolute Eosinophils (0.0 - 0.7 /CUMM) 0.1 0.1 Absolute Basophils (0.0 - 0.2 /CUMM) 0 0 PUBS MCHC (33.0 - 37.0 G/DL) 31.9 L 32.0 L 07/06 07/06 1015 0600 Chemistry Sodium (137 - 145 mmol/L) 147 H Cancelled Potassium (3.5 - 5.1 mmol/L) 5.2 H Cancelled Chloride (98 - 107 mmol/L) 111 H Cancelled Carbon Dioxide (22 - 30 mmol/L) 22 Cancelled Anion Gap (5 - 16) 15 Cancelled BUN (9 - 20 mg/dL) 95 H Cancelled Creatinine (0.7 - 1.2 mg/dL) 5.6 *H Cancelled Estimated GFR (>60 ml/min) 10 L BUN/Creatinine Ratio (7 - 25 %) 17.0 Cancelled Iron (49 - 181 ug/dL) 14 L TIBC (261 - 462 ug/dL) 167 L Ferritin (17.9 - 464 ng/mL) 178.0 25-OH Vitamin D Total (30 - 100 ng/ml) 74.0 Folate (2.76 - 20.0 ng/mL) 7.3 Hematology CBC w Diff NO MAN DIFF REQ Cancelled WBC (4.8 - 10.8 /CUMM) 8.1 Cancelled RBC (4.70 - 6.10 /CUMM) 2.35 L Cancelled Hgb (14.0 - 18.0 G/DL) 7.0 *L Cancelled Hct (42 - 52 %) 22.4 L Cancelled MCV (80.0 - 94.0 FL) 95.0 H Cancelled MCH (27.0 - 31.0 PG) 29.8 Cancelled RDW (11.5 - 14.5 %) 15.5 H Cancelled Plt Count (130 - 400 /CUMM) 167 Cancelled MPV (7.4 - 10.4 FL) 7.1 L Cancelled Gran % (42.2 - 75.2 %) 86.7 H Lymphocytes % (20.5 - 51.1 %) 9.7 L Monocytes % (1.7 - 9.3 %) 2.8 Eosinophils % (0 - 5 %) 0.7 Basophils % (0.0 - 2.0 %) 0.1 Absolute Granulocytes (1.4 - 6.5 /CUMM) 7.0 H Absolute Lymphocytes (1.2 - 3.4 /CUMM) 0.8 L Absolute Monocytes (0.10 - 0.60 /CUMM) 0.2 Absolute Eosinophils (0.0 - 0.7 /CUMM) 0.1 Absolute Basophils (0.0 - 0.2 /CUMM) 0 PUBS MCHC (33.0 - 37.0 G/DL) 31.4 L Cancelled Retic Count (0.5 - 2.0 %) 2.34 H 07/06 Chemistry Sodium (137 - 145 mmol/L) 146 H Potassium (3.5 - 5.1 mmol/L) 5.3 H Chloride (98 - 107 mmol/L) 108 H Carbon Dioxide (22 - 30 mmol/L) 21 L Anion Gap (5 - 16) 17 H BUN (9 - 20 mg/dL) 99 H Creatinine (0.7 - 1.2 mg/dL) 5.5 *H Estimated GFR (>60 ml/min) 10 L BUN/Creatinine Ratio (7 - 25 %) 18.0 Hematology CBC w Diff NO MAN DIFF REQ NO MAN DIFF REQ WBC (4.8 - 10.8 /CUMM) 9.1 9.3 RBC (4.70 - 6.10 /CUMM) 2.47 L 2.59 L Hgb (14.0 - 18.0 G/DL) 7.6 L 7.9 L Hct (42 - 52 %) 23.3 L 24.4 L MCV (80.0 - 94.0 FL) 94.4 H 94.2 H MCH (27.0 - 31.0 PG) 30.6 30.5 RDW (11.5 - 14.5 %) 15.4 H 15.3 H Plt Count (130 - 400 /CUMM) 161 170 MPV (7.4 - 10.4 FL) 7.2 L 7.6 Gran % (42.2 - 75.2 %) 87.5 H 83.7 H Lymphocytes % (20.5 - 51.1 %) 9.2 L 12.6 L Monocytes % (1.7 - 9.3 %) 2.8 2.7 Eosinophils % (0 - 5 %) 0.5 0.8 Basophils % (0.0 - 2.0 %) 0 0.2 Absolute Granulocytes (1.4 - 6.5 /CUMM) 8.0 H 7.8 H Absolute Lymphocytes (1.2 - 3.4 /CUMM) 0.8 L 1.2 Absolute Monocytes (0.10 - 0.60 /CUMM) 0.3 0.2 Absolute Eosinophils (0.0 - 0.7 /CUMM) 0 0.1 Absolute Basophils (0.0 - 0.2 /CUMM) 0 0 PUBS MCHC (33.0 - 37.0 G/DL) 32.4 L 32.3 L 07/05 07/05 07/05 1205 1155 0900 Chemistry Lactic Acid Cancelled Urines Ur Random Creatinine Cancelled Cancelled U Random Total Protein Cancelled Ur Random Sodium Cancelled Ur Random Potassium Cancelled Fraction Sodium Excret Cancelled 07/05 07/05 0615 0508 Chemistry Sodium (137 - 145 mmol/L) 147 H Potassium (3.5 - 5.1 mmol/L) 5.9 H Chloride (98 - 107 mmol/L) 105 Carbon Dioxide (22 - 30 mmol/L) 21 L Anion Gap (5 - 16) 21 H BUN (9 - 20 mg/dL) 96 H Creatinine (0.7 - 1.2 mg/dL) 5.0 H Estimated GFR (>60 ml/min) 11 L BUN/Creatinine Ratio (7 - 25 %) 19.2 Lactic Acid (0.7 - 2.1 mmol/L) 3.4 H Cancelled Hematology CBC w Diff MAN DIFF ORDERED WBC (4.8 - 10.8 /CUMM) 11.1 H RBC (4.70 - 6.10 /CUMM) 2.59 L Hgb (14.0 - 18.0 G/DL) 7.8 L Hct (42 - 52 %) 24.3 L MCV (80.0 - 94.0 FL) 93.9 MCH (27.0 - 31.0 PG) 30.3 RDW (11.5 - 14.5 %) 15.4 H Plt Count (130 - 400 /CUMM) 168 MPV (7.4 - 10.4 FL) 7.5 Gran % (42.2 - 75.2 %) 83.8 H Lymphocytes % (20.5 - 51.1 %) 13.1 L Monocytes % (1.7 - 9.3 %) 2.6 Eosinophils % (0 - 5 %) 0.1 Basophils % (0.0 - 2.0 %) 0.4 Absolute Granulocytes (1.4 - 6.5 /CUMM) 9.3 H Segmented Neutrophils (42.2 - 75.2 %) 77 H Absolute Lymphocytes (1.2 - 3.4 /CUMM) 1.4 Lymphocytes (20.5 - 51.1 %) 15 L Monocytes (1.7 - 9.3 %) 8 Absolute Monocytes (0.10 - 0.60 /CUMM) 0.3 Absolute Eosinophils (0.0 - 0.7 /CUMM) 0 Absolute Basophils (0.0 - 0.2 /CUMM) 0 Platelet Estimate (ADEQUATE) ADEQUATE Hypochromic-Microcytic 1+ Poikilocytosis 1+ Ovalocytes 1+ PUBS MCHC (33.0 - 37.0 G/DL) 32.3 L Other Body Source Fld Total RBCs Counted (%) 100 07/05 07/05 07/05 0400 0208 0022 Chemistry Lactic Acid (0.7 - 2.1 mmol/L) Cancelled Cancelled 4.5 H 07/04 07/04 2210 2210 Urines Urine Color (YEL,AMB,STR) YEL Urine Clarity (CLEAR) CLEAR Urine pH (5.0 - 8.0) 6.0 Ur Specific Vinson (1.001 - 1.035) 1.020 Urine Protein (NEG,<30 MG/DL) NEG Urine Ketones (NEG) NEG Urine Nitrite (NEG) NEG Urine Bilirubin (NEG) NEG Urine Urobilinogen (0.1 - 1.0 EU/dl) 0.2 Ur Leukocyte Esterase (NEG) NEG Ur Microscopic SEDIMENT EXAMINED Urine RBC (0 - 5 /HPF) RARE Urine WBC (0 - 2 /HPF) RARE Ur Epithelial Cells (NONE,FEW) FEW Urine Bacteria (NEG/NONE) RARE H Hyaline Casts (0/LPF) RARE H Urine Mucus (FEW,NONE) RARE Urine Hemoglobin (NEG) TRACE-INTACT H Ur Random Creatinine (mg/dL) 99.7 Ur Random Sodium (30 - 90 mmol/L) 15 L Ur Random Potassium (mmol/L) 52.2 Fraction Sodium Excret (<1% %) 0.6 Urine Glucose (N MG/DL) NEG 07/04 2200 Chemistry Sodium (137 - 145 mmol/L) 144 Potassium (3.5 - 5.1 mmol/L) 5.9 H Chloride (98 - 107 mmol/L) 101 Carbon Dioxide (22 - 30 mmol/L) 22 Anion Gap (5 - 16) 21 H BUN (9 - 20 mg/dL) 97 H Creatinine (0.7 - 1.2 mg/dL) 5.3 *H Estimated GFR (>60 ml/min) 10 L BUN/Creatinine Ratio (7 - 25 %) 18.3 Glucose (65 - 99 mg/dL) 149 H Lactic Acid (0.7 - 2.1 mmol/L) 4.3 H Calcium (8.4 - 10.2 mg/dL) 9.4 Total Bilirubin (0.2 - 1.3 mg/dL) 0.3 Direct Bilirubin (< 0.4 mg/dL) 0.3 AST (17 - 59 U/L) 71 H ALT (21 - 72 U/L) 37 Alkaline Phosphatase (< 127 U/L) 81 Troponin I (<0.11 ng/ml) 0.06 Total Protein (6.3 - 8.2 g/dL) 6.7 Albumin (3.5 - 5.0 g/dL) 3.5 Prealbumin (17.6 - 36.0 mg/dL) 13.5 L Amylase (30 - 110 U/L) 60 Lipase (23 - 300 U/L) 118 Vitamin B12 (239 - 931 pg/mL) 307 TSH (0.270 - 4.200 uIU/mL) 1.730 Hematology CBC w Diff NO MAN DIFF REQ WBC (4.8 - 10.8 /CUMM) 12.6 H RBC (4.70 - 6.10 /CUMM) 3.02 L Hgb (14.0 - 18.0 G/DL) 9.2 L Hct (42 - 52 %) 28.5 L MCV (80.0 - 94.0 FL) 94.4 H MCH (27.0 - 31.0 PG) 30.4 RDW (11.5 - 14.5 %) 15.3 H Plt Count (130 - 400 /CUMM) 219 MPV (7.4 - 10.4 FL) 7.3 L Gran % (42.2 - 75.2 %) 89.6 H Lymphocytes % (20.5 - 51.1 %) 8.8 L Monocytes % (1.7 - 9.3 %) 1.0 L Eosinophils % (0 - 5 %) 0.2 Basophils % (0.0 - 2.0 %) 0.4 Absolute Granulocytes (1.4 - 6.5 /CUMM) 11.3 H Absolute Lymphocytes (1.2 - 3.4 /CUMM) 1.1 L Absolute Monocytes (0.10 - 0.60 /CUMM) 0.1 Absolute Eosinophils (0.0 - 0.7 /CUMM) 0 Absolute Basophils (0.0 - 0.2 /CUMM) 0 PUBS MCHC (33.0 - 37.0 G/DL) 32.2 L Imaging/Other Studies: None new
[2017-07-07 15:28] VITALS: BP 112/52
[2017-07-07 23:02] VITALS: BP 110/56
[2017-07-08 06:20] VITALS: BP 122/56
--- NOTE | 2017-07-08 07:56 | PN- Housestaff ---
Sandra Gaffney 07/08/17 0756: Subjective Follow-up For: Failure to thrive acute renal failure Anemia could be due to upper GI bleed Complaints: no complaints Subjective: Patient was seen and examined this morning. He was lying comfortably on bed but very confused and at times was moaning. He remained oliguric. Family meeting was held this morning with a hospice nurse. His daughters are leaning towards inpatient hospice but they agreed upon for blood transfusion and continue current treatment for her so meanwhile we will make up their mind but they clearly does not want any aggressive measures. Review of Systems Constitutional: Reports: malaise, weakness. Denies: diaphoresis, fever. Cardiovascular: Denies: edema, orthopena. Respiratory: Reports: short of breath. Gastrointestinal: Reports: diarrhea. Denies: distention. Genitourinary: Reports: no symptoms. Objective Last 24 Hrs of Vital Signs/I&O Vital Signs Date Time Temp Pulse Resp B/P B/P Pulse O2 O2 Flow FiO2 Mean Ox Delivery Rate 07/08 1324 98.0 79 18 118/70 100 Nasal 3.0L Cannula 07/08 1317 98.9 07/08 1026 99.7 07/08 0916 99.7 86 18 130/60 98 Nasal 3.0L Cannula 07/08 0800 Nasal 3.0L Cannula 07/08 0628 968 Nasal 3.0L Cannula 07/08 0620 98.7 90 22 122/56 99 Nasal Cannula 07/08 0000 94 Nasal 3.0L Cannula 07/07 2345 21 07/07 2302 98.8 88 24 110/56 99 Nasal 3.0L Cannula 07/07 1600 Nasal 3.0L Cannula 07/07 1528 98.8 92 18 112/52 99 Intake & Output 07/08 1600 07/08 0800 07/08 0000 Intake Total 397 257 6383 Output Total 100 50 200 Balance 437 364 9633 Intake, Blood 350 Product Intake, IV 650 800 Intake, Oral 480 Number 5 Bowel Movements Output, Urine 100 50 200 Physical Exam General Appearance: Alert, Mild Distress Cardiovascular: Regular Rate, Normal S1, Normal S2 Lungs: Normal Air Movement Abdomen: Soft, No Tenderness Current Medications: Current Medications Sig/Jimmie Start time Last Medication Dose Route Stop Time Status Admin Acetaminophen 500 MG Q6P PRN 07/08 0930 AC 07/08 PO 1026 Collagenase 1 DEN DAILY 07/06 1830 AC 07/08 TOP 0922 Dextrose/Sodium 1,000 ML Q10H 07/06 0930 AC 07/08 Chloride IV 1318 Finasteride 5 MG QPM 07/05 2200 AC 07/07 PO 2044 Iron Sucrose 200 MG Q48H 07/07 1545 AC 07/07 Sodium Chloride 100 ML IV 07/15 1559 1902 Iron Sucrose 200 MG Q48 07/07 1500 CAN IV Levothyroxine Sodium 25 MCG DAILY 07/08 1330 AC 07/08 IV 1429 Levothyroxine Sodium 0.05 MG DAILY AC 07/08 1000 DC PO Levothyroxine Sodium 25 MCG DAILY 07/05 1000 DC 07/07 IV 1135 Memantine 5 MG BID 07/05 1000 AC 07/08 PO 0921 Morphine Sulfate 2 MG Q2P PRN 07/08 0900 AC 07/08 IV 1353 Last 24 Hrs of Lab/Danny Results Last 24 Hrs of Labs/Mics: Laboratory Tests 07/08/17 0802: Anion Gap 15, Estimated GFR 8 L, BUN/Creatinine Ratio 15.3, CBC w Diff NO MAN DIFF REQ, RBC 2.24 L, MCV 91.9, MCH 29.8, RDW 17.0 H, MPV 6.7 L, Gran % 87.7 H, Lymphocytes % 8.9 L, Monocytes % 1.7, Eosinophils % 1.7, Basophils % 0, Absolute Granulocytes 5.4, Absolute Lymphocytes 0.6 L, Absolute Monocytes 0.1, Absolute Eosinophils 0.1, Absolute Basophils 0, PUBS MCHC 32.4 L Microbiology 07/07 1645 STOOL: Clostridium difficile Toxin A & B - COMP Assessment/Plan Assessment: 82 years old with multiple past medical Hx and end-stage dementia was admitted for failure to thrive and altered mentation. Problem list: # FTT most likely due to underlying advanced Alzheimer's dementia # FRANCO # hypotension # lactic acidosis # none-stagable sacral wound # DM # diarrhea ?? C. diff # BPH #Acute blood loss anemia #Episodes of hypoglycemia # Plan * Status post swallow eval, was started on pure honey thickened liquid diet. He is still hypernatremic but sodium is trending down from 147 07/22/1945. We will continue D5 half normal saline. His potassium is also within normal range today but his creatinine is still trending up. Nephrology is not recommending dialysis at this moment. Family is also leaning towards hospice evaluation and home hospice due to his current situation. * Family meeting was held this morning. Patient was evaluated by hospice nurse. Daughters are leaning towards inpatient hospice but at this point they are agreed-upon blood transfusions as his hemoglobin again dropped to 6.7. Family was requesting to give him frequent morphine and make him comfortable but they would need some time to discuss to change his CODE STATUS to inpatient hospice. They clearly does not want any aggressive measures or testing including colonoscopy/EGD. * His blood sugars remained stable and we will change Accu-Cheks from every 2 hours to regular in the morning at night. * Patient has not received any sliding scale insulin, will discontinue * Wound consult appreciated * IV hydration with D5 normal saline @ 100 mils per hour * Hold diuretics, and antihypertensive medication, finasteride * Continue tamsulosin * We will start patient on Venofer 200 mg IV every other day for total of 5 doses as per nephrology recommendations. * Follow-up C. difficile screening * Repeat labs in the a.m. Problem List: 1. Failure to thrive 2. Dehydration 3. Renal failure Pain Ratin Pain Location: Generalized Pain Goal: Remain pain free Pain Plan: Morphine Tomorrow's Labs & Rationales: cbc and basic electrolyte panel Anthony DAHL,Ana Luisa 07/08/17 1120: Attending MD Review Statement Attending Statement Attending MD Statement: examined this patient, discuss w/resident/PA/COMPARATIVE SOCIOLOGY PROFESSOR, agreed w/resident/PA/COMPARATIVE SOCIOLOGY PROFESSOR, discussed with family, reviewed EMR data (avail), discussed with nursing, discussed with case mgmt, reviewed images, amended to note Attending Assessment/Plan: Patient seen and examined, he has advanced dementia and therefore not particularly K-12. Family meeting was held this morning with hospice nurse. Family is willing for hospice care but not right now. They want to wait another 24 hours. They want patient to get blood transfusion today and they want to see where his numbers go tomorrow. Vital Signs Date Time Temp Pulse Resp B/P B/P Pulse O2 O2 Flow FiO2 Mean Ox Delivery Rate 07/08 1026 99.7 07/08 0916 99.7 86 18 130/60 98 Nasal 3.0L Cannula 07/08 0800 Nasal 3.0L Cannula 07/08 0628 968 Nasal 3.0L Cannula 07/08 0620 98.7 90 22 122/56 99 Nasal Cannula 07/08 0000 94 Nasal 3.0L Cannula 07/07 2345 21 07/07 2302 98.8 88 24 110/56 99 Nasal 3.0L Cannula 07/07 1600 Nasal 3.0L Cannula 07/07 1528 98.8 92 18 112/52 99 on exam; awake, nad. cv; s1,s2, rrr resp; clear abd; soft, nt, bs+ ext; no edema. skin: + decub. Laboratory Tests 07/08 0802 Chemistry Sodium (137 - 145 mmol/L) 142 Potassium (3.5 - 5.1 mmol/L) 4.9 Chloride (98 - 107 mmol/L) 110 H Carbon Dioxide (22 - 30 mmol/L) 18 L Anion Gap (5 - 16) 15 BUN (9 - 20 mg/dL) 101 *H Creatinine (0.7 - 1.2 mg/dL) 6.6 *H Estimated GFR (>60 ml/min) 8 L BUN/Creatinine Ratio (7 - 25 %) 15.3 Hematology CBC w Diff NO MAN DIFF REQ WBC (4.8 - 10.8 /CUMM) 6.2 RBC (4.70 - 6.10 /CUMM) 2.24 L Hgb (14.0 - 18.0 G/DL) 6.7 *L Hct (42 - 52 %) 20.5 L MCV (80.0 - 94.0 FL) 91.9 MCH (27.0 - 31.0 PG) 29.8 RDW (11.5 - 14.5 %) 17.0 H Plt Count (130 - 400 /CUMM) 139 MPV (7.4 - 10.4 FL) 6.7 L Gran % (42.2 - 75.2 %) 87.7 H Lymphocytes % (20.5 - 51.1 %) 8.9 L Monocytes % (1.7 - 9.3 %) 1.7 Eosinophils % (0 - 5 %) 1.7 Basophils % (0.0 - 2.0 %) 0 Absolute Granulocytes (1.4 - 6.5 /CUMM) 5.4 Absolute Lymphocytes (1.2 - 3.4 /CUMM) 0.6 L Absolute Monocytes (0.10 - 0.60 /CUMM) 0.1 Absolute Eosinophils (0.0 - 0.7 /CUMM) 0.1 Absolute Basophils (0.0 - 0.2 /CUMM) 0 PUBS MCHC (33.0 - 37.0 G/DL) 32.4 L A/P: 82 y/o M with pmh sig for CAD S/P stent, bladder cancer s/p resection, BPH S/P TURP, hypothyroidism, DM, gout, TIA, end stage dementia, aortic aneurysm, Ch diastlic CHF admitted with generalized weakness, acute on chronic renal failure, unstageable decubitus ulcer, dehydration, acute on chronic anemia. H&H and creatinine kept on getting worse. As mentioned above, family meeting was held and family is willing for hospice care but not right at the moment. They want to wait another 24 hours and in the meantime we want patient to receive RBC transfusion. The want to see where his creatinine and blood counts go in the morning. They are okay giving patient morphine as needed for pain. Continue the rest of the medications. Patient will be followed by nephrology. We'll monitor the creatinine. Will revisit the hospice evaluation in the morning. Patient will be an appropriate candidate for inpatient hospice.
[2017-07-08 08:14] LABS: ABSOLUTE BASOPHIL COUNT 0 /CUMM (0.0-0.2); ABSOLUTE EOSINOPHIL COUNT 0.1 /CUMM (0.0-0.7); ABSOLUTE GRANULOCYTE CT 5.4 /CUMM (1.4-6.5); ABSOLUTE LYMPH COUNT 0.6 /CUMM (1.2-3.4); ABSOLUTE MONOCYTE COUNT 0.1 /CUMM (0.10-0.60); BASOPHIL % 0 % (0.0-2.0); EOSINOPHIL % 1.7 % (0-5); MEAN CORPUSCULAR HGB 29.8 PG (27.0-31.0); MEAN CORPUSCULAR HGB CONC 32.4 G/DL (33.0-37.0); MEAN CORPUSCULAR VOLUME 91.9 FL (80.0-94.0); MEAN PLATELET VOLUME 6.7 FL (7.4-10.4); RED BLOOD CELL CT 2.24 /CUMM (4.70-6.10); WHITE BLOOD CELL COUNT 6.2 /CUMM (4.8-10.8)
[2017-07-08 08:17] LABS: HEMATOCRIT 20.5 % (42-52)
[2017-07-08 08:29] LABS: GRANULOCYTE % 87.7 % (42.2-75.2); PLATELET COUNT 139 /CUMM (130-400)
[2017-07-08 09:16] VITALS: BP 130/60
--- NOTE | 2017-07-08 11:51 | PN- Nephrology ---
Assessment/Plan Assessment: FRANCO - Likely 2/2 ATN in the setting of pre-renal azotemia + obstructive nephropathy - bland urine supportive of this. Renal function continues to worsen. GOC being discussed and family leaning toward hospice given overall clinical situation which I agree with. Hypernatremia - 2/2 decreased free water intake - improving. Anemia - Possible transfusion. Getting IV iron as well. Does have baseline anemia even pre-dating any renal insufficiency. Suggestion: -Cont D5 1/2 NS at 100cc/hr -Maintain levine catheter - continue to closely monitor I's/O's -Daily BMP -Agree with transfusion if family willing -Venofer 200mg every other day x5 doses -f/u GOC with family Please call [phone] with ?'s Subjective Subjective: SCr rising Oliguric Hg down to 6.7 Family says that the patient is fidgity Family leaning toward hospice Objective Vital Signs and I&Os Vital Signs Date Time Temp Pulse Resp B/P B/P Pulse O2 O2 Flow FiO2 Mean Ox Delivery Rate 07/08 1026 99.7 07/08 0916 99.7 86 18 130/60 98 Nasal 3.0L Cannula 07/08 0800 Nasal 3.0L Cannula 07/08 0628 968 Nasal 3.0L Cannula 07/08 0620 98.7 90 22 122/56 99 Nasal Cannula 07/08 0000 94 Nasal 3.0L Cannula 07/07 2345 21 07/07 2302 98.8 88 24 110/56 99 Nasal 3.0L Cannula 07/07 1600 Nasal 3.0L Cannula 07/07 1528 98.8 92 18 112/52 99 Intake & Output 07/08 1600 07/08 0400 07/07 1600 07/07 0400 07/06 1600 07/06 0400 Intake Total 650 1280 1700 1280 830 Output Total 50 200 101 150 425 200 Balance 600 1080 1599 1130 405 -200 Intake, IV 668 071 4420 800 800 Intake, Oral 480 100 480 30 Number 5 2 Bowel Movements Output, Stool 1 Output, Urine 50 200 100 150 425 200 Patient 84 lb 0.01 oz Weight Weight Reported by Patient Measurement Method Physical Exam: Gen - OK appearing HEENT - supple, CV - RRR, no m/r/g Chest - clear, no w/r/r Abd - soft, NTND Ext - no edema Neuro - not oriented to person, place, or time Current Medications: Current Medications Sig/Jimmie Start time Last Medication Dose Route Stop Time Status Admin Acetaminophen 500 MG Q6P PRN 07/08 0930 AC 07/08 PO 1026 Collagenase 1 DEN DAILY 07/06 1830 AC 07/08 TOP 0922 Dextrose/Sodium 1,000 ML Q10H 07/06 0930 AC 07/07 Chloride IV 2331 Finasteride 5 MG QPM 07/05 2200 AC 07/07 PO 2044 Iron Sucrose 200 MG Q48H 07/07 1545 AC 07/07 Sodium Chloride 100 ML IV 07/15 1559 1902 Iron Sucrose 200 MG Q48 07/07 1500 CAN IV Levothyroxine Sodium 0.05 MG DAILY AC 07/08 1000 AC PO Levothyroxine Sodium 25 MCG DAILY 07/05 1000 DC 07/07 IV 1135 Memantine 5 MG BID 07/05 1000 AC 07/08 PO 0921 Morphine Sulfate 2 MG Q2P PRN 07/08 0900 AC 07/08 IV 1026 Patient Medication 1 ED ONE ONE 07/07 1200 MS 07/07 Teaching ED 07/07 1201 1254 Results Pertinent Lab Results: Laboratory Tests 07/08 07/07 0802 0740 Chemistry Sodium (137 - 145 mmol/L) 142 146 H Potassium (3.5 - 5.1 mmol/L) 4.9 5.1 Chloride (98 - 107 mmol/L) 110 H 109 H Carbon Dioxide (22 - 30 mmol/L) 18 L 20 L Anion Gap (5 - 16) 15 16 BUN (9 - 20 mg/dL) 101 *H 98 H Creatinine (0.7 - 1.2 mg/dL) 6.6 *H 5.9 *H Estimated GFR (>60 ml/min) 8 L 9 L BUN/Creatinine Ratio (7 - 25 %) 15.3 16.6 Hematology CBC w Diff NO MAN DIFF REQ NO MAN DIFF REQ WBC (4.8 - 10.8 /CUMM) 6.2 7.9 RBC (4.70 - 6.10 /CUMM) 2.24 L 2.52 L Hgb (14.0 - 18.0 G/DL) 6.7 *L 7.5 L Hct (42 - 52 %) 20.5 L 23.4 L MCV (80.0 - 94.0 FL) 91.9 93.1 MCH (27.0 - 31.0 PG) 29.8 29.7 RDW (11.5 - 14.5 %) 17.0 H 17.7 H Plt Count (130 - 400 /CUMM) 139 150 MPV (7.4 - 10.4 FL) 6.7 L 7.2 L Gran % (42.2 - 75.2 %) 87.7 H 85.6 H Lymphocytes % (20.5 - 51.1 %) 8.9 L 10.9 L Monocytes % (1.7 - 9.3 %) 1.7 2.0 Eosinophils % (0 - 5 %) 1.7 1.5 Basophils % (0.0 - 2.0 %) 0 0 Absolute Granulocytes (1.4 - 6.5 /CUMM) 5.4 6.7 H Absolute Lymphocytes (1.2 - 3.4 /CUMM) 0.6 L 0.9 L Absolute Monocytes (0.10 - 0.60 /CUMM) 0.1 0.2 Absolute Eosinophils (0.0 - 0.7 /CUMM) 0.1 0.1 Absolute Basophils (0.0 - 0.2 /CUMM) 0 0 PUBS MCHC (33.0 - 37.0 G/DL) 32.4 L 31.9 L 07/06 07/06 2222 1015 Chemistry Sodium (137 - 145 mmol/L) 147 H Potassium (3.5 - 5.1 mmol/L) 5.2 H Chloride (98 - 107 mmol/L) 111 H Carbon Dioxide (22 - 30 mmol/L) 22 Anion Gap (5 - 16) 15 BUN (9 - 20 mg/dL) 95 H Creatinine (0.7 - 1.2 mg/dL) 5.6 *H Estimated GFR (>60 ml/min) 10 L BUN/Creatinine Ratio (7 - 25 %) 17.0 Iron (49 - 181 ug/dL) 14 L TIBC (261 - 462 ug/dL) 167 L Ferritin (17.9 - 464 ng/mL) 178.0 25-OH Vitamin D Total (30 - 100 ng/ml) 74.0 Folate (2.76 - 20.0 ng/mL) 7.3 Hematology CBC w Diff NO MAN DIFF REQ NO MAN DIFF REQ WBC (4.8 - 10.8 /CUMM) 8.6 8.1 RBC (4.70 - 6.10 /CUMM) 2.54 L 2.35 L Hgb (14.0 - 18.0 G/DL) 7.5 L 7.0 *L Hct (42 - 52 %) 23.4 L 22.4 L MCV (80.0 - 94.0 FL) 92.4 95.0 H MCH (27.0 - 31.0 PG) 29.6 29.8 RDW (11.5 - 14.5 %) 17.5 H 15.5 H Plt Count (130 - 400 /CUMM) 162 167 MPV (7.4 - 10.4 FL) 7.0 L 7.1 L Gran % (42.2 - 75.2 %) 87.7 H 86.7 H Lymphocytes % (20.5 - 51.1 %) 8.9 L 9.7 L Monocytes % (1.7 - 9.3 %) 2.7 2.8 Eosinophils % (0 - 5 %) 0.6 0.7 Basophils % (0.0 - 2.0 %) 0.1 0.1 Absolute Granulocytes (1.4 - 6.5 /CUMM) 7.6 H 7.0 H Absolute Lymphocytes (1.2 - 3.4 /CUMM) 0.8 L 0.8 L Absolute Monocytes (0.10 - 0.60 /CUMM) 0.2 0.2 Absolute Eosinophils (0.0 - 0.7 /CUMM) 0.1 0.1 Absolute Basophils (0.0 - 0.2 /CUMM) 0 0 PUBS MCHC (33.0 - 37.0 G/DL) 32.0 L 31.4 L Retic Count (0.5 - 2.0 %) 2.34 H 16 07/06 0600 0354 Chemistry Sodium (137 - 145 mmol/L) Cancelled 146 H Potassium (3.5 - 5.1 mmol/L) Cancelled 5.3 H Chloride (98 - 107 mmol/L) Cancelled 108 H Carbon Dioxide (22 - 30 mmol/L) Cancelled 21 L Anion Gap (5 - 16) Cancelled 17 H BUN (9 - 20 mg/dL) Cancelled 99 H Creatinine (0.7 - 1.2 mg/dL) Cancelled 5.5 *H Estimated GFR (>60 ml/min) 10 L BUN/Creatinine Ratio (7 - 25 %) Cancelled 18.0 Hematology CBC w Diff Cancelled NO MAN DIFF REQ WBC (4.8 - 10.8 /CUMM) Cancelled 9.1 RBC (4.70 - 6.10 /CUMM) Cancelled 2.47 L Hgb (14.0 - 18.0 G/DL) Cancelled 7.6 L Hct (42 - 52 %) Cancelled 23.3 L MCV (80.0 - 94.0 FL) Cancelled 94.4 H MCH (27.0 - 31.0 PG) Cancelled 30.6 RDW (11.5 - 14.5 %) Cancelled 15.4 H Plt Count (130 - 400 /CUMM) Cancelled 161 MPV (7.4 - 10.4 FL) Cancelled 7.2 L Gran % (42.2 - 75.2 %) 87.5 H Lymphocytes % (20.5 - 51.1 %) 9.2 L Monocytes % (1.7 - 9.3 %) 2.8 Eosinophils % (0 - 5 %) 0.5 Basophils % (0.0 - 2.0 %) 0 Absolute Granulocytes (1.4 - 6.5 /CUMM) 8.0 H Absolute Lymphocytes (1.2 - 3.4 /CUMM) 0.8 L Absolute Monocytes (0.10 - 0.60 /CUMM) 0.3 Absolute Eosinophils (0.0 - 0.7 /CUMM) 0 Absolute Basophils (0.0 - 0.2 /CUMM) 0 PUBS MCHC (33.0 - 37.0 G/DL) Cancelled 32.4 L 07/05 1205 1155 Hematology CBC w Diff NO MAN DIFF REQ WBC (4.8 - 10.8 /CUMM) 9.3 RBC (4.70 - 6.10 /CUMM) 2.59 L Hgb (14.0 - 18.0 G/DL) 7.9 L Hct (42 - 52 %) 24.4 L MCV (80.0 - 94.0 FL) 94.2 H MCH (27.0 - 31.0 PG) 30.5 RDW (11.5 - 14.5 %) 15.3 H Plt Count (130 - 400 /CUMM) 170 MPV (7.4 - 10.4 FL) 7.6 Gran % (42.2 - 75.2 %) 83.7 H Lymphocytes % (20.5 - 51.1 %) 12.6 L Monocytes % (1.7 - 9.3 %) 2.7 Eosinophils % (0 - 5 %) 0.8 Basophils % (0.0 - 2.0 %) 0.2 Absolute Granulocytes (1.4 - 6.5 /CUMM) 7.8 H Absolute Lymphocytes (1.2 - 3.4 /CUMM) 1.2 Absolute Monocytes (0.10 - 0.60 /CUMM) 0.2 Absolute Eosinophils (0.0 - 0.7 /CUMM) 0.1 Absolute Basophils (0.0 - 0.2 /CUMM) 0 PUBS MCHC (33.0 - 37.0 G/DL) 32.3 L Urines Ur Random Creatinine Cancelled Cancelled U Random Total Protein Cancelled Ur Random Sodium Cancelled Ur Random Potassium Cancelled Fraction Sodium Excret Cancelled Imaging/Other Studies: None new
[2017-07-08 13:24] VITALS: BP 118/70
[2017-07-08 22:36] VITALS: BP 108/50
[2017-07-09 06:15] VITALS: BP 110/60
--- NOTE | 2017-07-09 07:29 | PN- Housestaff ---
Sandra Gaffney 07/09/17 0728: Subjective Follow-up For: Failure to thrive Acute kidney injury oliguria advanced dementia Subjective: Patient was seen and examined this morning. He was lying comfortably without any complaint but he was very confused and his kidney function is deteriorating. He is refusing to eat much. He became more hypoxic requiring Ventimask. Review of Systems Constitutional: Denies: diaphoresis, fever. Cardiovascular: Denies: chest pain, orthopena. Respiratory: Reports: short of breath. Denies: hemoptysis. Gastrointestinal: Denies: constipation, distention. Musculoskeletal: Denies: joint pain, joint swelling. Objective Last 24 Hrs of Vital Signs/I&O Vital Signs Date Time Temp Pulse Resp B/P B/P Pulse O2 O2 Flow FiO2 Mean Ox Delivery Rate 07/09 0800 Nasal 4.0L Cannula 07/09 0615 98.0 101 22 110/60 91 Venti Mask 07/09 0035 91 Venti Mask 40% 07/09 0000 91 Venti Mask 45% 07/08 2236 98.3 88 24 108/50 86 Venti Mask 40% 07/08 1600 Nasal 3.0L Cannula Intake & Output 07/09 1600 07/09 0800 07/09 0000 Intake Total 620 700 Output Total 100 450 350 Balance -100 170 350 Intake, IV 620 700 Intake, Oral 0 Output, Other 250 Output, Stool 250 Output, Urine 100 200 100 Physical Exam General Appearance: Alert, Mild Distress Cardiovascular: Regular Rate, Normal S1, Normal S2 Lungs: Normal Air Movement Abdomen: Soft, No Hepatospenomegaly Current Medications: Current Medications Sig/Jimmie Start time Last Medication Dose Route Stop Time Status Admin Acetaminophen 500 MG Q6P PRN 07/08 0930 AC 07/08 PO 1026 Collagenase 1 DEN DAILY 07/06 1830 07/09 TOP 1058 Dextrose/Sodium 1,000 ML Q10H 07/06 0930 DC 07/09 Chloride IV 0102 Finasteride 5 MG QPM 07/05 2200 AC 07/07 PO 2044 Glycopyrrolate 200 MCG ONE ONE 07/08 2200 DC 07/08 IV 07/08 2201 2214 Iron Sucrose 200 MG Q48H 07/07 1545 07/07 Sodium Chloride 100 ML IV 07/15 1559 1902 Levothyroxine Sodium 25 MCG DAILY 07/08 1330 AC 01/19 IV 1058 Memantine 5 MG BID 07/05 1000 AC 07/08 PO 0921 Morphine Sulfate 2 MG Q2P PRN 07/08 0900 AC 07/09 IV 1118 Scopolamine HBr 1 PAT ONE ONE 07/08 2114 OH 07/08 [facility] 07/08 Last 24 Hrs of Lab/Danny Results Last 24 Hrs of Labs/Mics: Laboratory Tests 07/09/17 0735: Anion Gap 15, Estimated GFR 8 L, BUN/Creatinine Ratio 15.7, CBC w Diff NO MAN DIFF REQ, RBC 2.67 L, MCV 92.7, MCH 29.9, RDW 16.7 H, MPV 7.1 L, Gran % 87.8 H, Lymphocytes % 9.2 L, Monocytes % 2.6, Eosinophils % 0.4, Basophils % 0, Absolute Granulocytes 4.7, Absolute Lymphocytes 0.5 L, Absolute Monocytes 0.1, Absolute Eosinophils 0, Absolute Basophils 0, PUBS MCHC 32.2 L Assessment/Plan Assessment: 82 years old with multiple past medical Hx and end-stage dementia was admitted for failure to thrive and altered mentation. 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 C. diff # BPH #Acute blood loss anemia status post transfusion #Episodes of hypoglycemia resolved # Plan * Inpatient hospice most likely today after finalizing with other family members. Patient was evaluated by hospice nurse yesterday and most likely they will come this afternoon. * His creatinine function is deteriorating today's his creatinine is 6.7 but given his condition and planning of changing post status to inpatient hospice no intervention including dialysis is needed at this point. * Patient will be given morphine every 2 hours when necessary and was also started on scopolamine patch. Family does not want any labs from now onwards but they're okay with IV for now. * Given his worsening hypoxia and suspicion of fluid overload we would DC'd his IV hydration today. * Recommendation is pure diet but family is willing to give him anything he wants. * He was transfused with 1 unit of blood yesterday and his H&H is stable at 8.0 today. Problem List: 1. Failure to thrive 2. Dehydration 3. Renal failure Pain Ratin Pain Location: Not applicable Pain Goal: Remain pain free Pain Plan: Morphine Tomorrow's Labs & Rationales: None Anthony DAHLAna Luisa 07/09/17 1056: Attending MD Review Statement Attending Statement Attending MD Statement: examined this patient, discuss w/resident/PA/MUSIC EDUCATION ADJUNCT PROFESSOR, agreed w/resident/PA/MUSIC EDUCATION ADJUNCT PROFESSOR, discussed with family, reviewed EMR data (avail), discussed with nursing, reviewed images, amended to note Attending Assessment/Plan: Patient is seen and examined, not doing well this morning. Creatinine Done worsening. Patient is now getting more hypoxic. He wasn't able to communicate with me today as he has advanced dementia. Vital Signs Date Time Temp Pulse Resp B/P B/P Pulse O2 O2 Flow FiO2 Mean Ox Delivery Rate 07/09 0615 98.0 101 22 110/60 91 Venti Mask 07/09 0035 91 Venti Mask 40% 07/09 0000 91 Venti Mask 45% 07/08 2236 98.3 88 24 108/50 86 Venti Mask 40% 07/08 1600 Nasal 3.0L Cannula 07/08 1324 98.0 79 18 118/70 100 Nasal 3.0L Cannula 07/08 1317 98.9 on exam; awake, not able to communicate. cv; s1,s2, rrr resp; mild scattered rhonchi. abd; soft, nt, bs+ ext; trace edema. skin: upon review, patient does have Stage 4 decub ulcer present on admission. Laboratory Tests 07/09 0735 Chemistry Sodium (137 - 145 mmol/L) 142 Potassium (3.5 - 5.1 mmol/L) 5.2 H Chloride (98 - 107 mmol/L) 110 H Carbon Dioxide (22 - 30 mmol/L) 17 L Anion Gap (5 - 16) 15 BUN (9 - 20 mg/dL) 105 *H Creatinine (0.7 - 1.2 mg/dL) 6.7 *H Estimated GFR (>60 ml/min) 8 L BUN/Creatinine Ratio (7 - 25 %) 15.7 Hematology CBC w Diff NO MAN DIFF REQ WBC (4.8 - 10.8 /CUMM) 5.3 RBC (4.70 - 6.10 /CUMM) 2.67 L Hgb (14.0 - 18.0 G/DL) 8.0 L Hct (42 - 52 %) 24.8 L MCV (80.0 - 94.0 FL) 92.7 MCH (27.0 - 31.0 PG) 29.9 RDW (11.5 - 14.5 %) 16.7 H Plt Count (130 - 400 /CUMM) 139 MPV (7.4 - 10.4 FL) 7.1 L Gran % (42.2 - 75.2 %) 87.8 H Lymphocytes % (20.5 - 51.1 %) 9.2 L Monocytes % (1.7 - 9.3 %) 2.6 Eosinophils % (0 - 5 %) 0.4 Basophils % (0.0 - 2.0 %) 0 Absolute Granulocytes (1.4 - 6.5 /CUMM) 4.7 Absolute Lymphocytes (1.2 - 3.4 /CUMM) 0.5 L Absolute Monocytes (0.10 - 0.60 /CUMM) 0.1 Absolute Eosinophils (0.0 - 0.7 /CUMM) 0 Absolute Basophils (0.0 - 0.2 /CUMM) 0 PUBS MCHC (33.0 - 37.0 G/DL) 32.2 L A/P; 82 y/o M with pmh sig for CAD S/P stent, bladder cancer s/p resection, BPH S/P TURP, hypothyroidism, DM, gout, TIA, end stage dementia, aortic aneurysm, Ch diastlic CHF admitted with generalized weakness, acute on chronic renal failure, stage 4 decubitus ulcer, dehydration, acute on chronic anemia. H&H and creatinine kept on getting worse. H&H is improved slightly after transfusion but creatinine kept on getting worse. Family meeting was held yesterday and planned again for today for possible hospice. Family does not want any aggressive measures for the patient anyways. We will stop IV fluids as patient is now requiring more oxygen. Continue the rest of the management. Futher mx pending family meeting and hospice reeval. Futher mx pending family meeting and hospice reeval.
[2017-07-09 08:44] LABS: ABSOLUTE BASOPHIL COUNT 0 /CUMM (0.0-0.2); ABSOLUTE EOSINOPHIL COUNT 0 /CUMM (0.0-0.7); ABSOLUTE GRANULOCYTE CT 4.7 /CUMM (1.4-6.5); ABSOLUTE LYMPH COUNT 0.5 /CUMM (1.2-3.4); ABSOLUTE MONOCYTE COUNT 0.1 /CUMM (0.10-0.60); BASOPHIL % 0 % (0.0-2.0); EOSINOPHIL % 0.4 % (0-5); HEMATOCRIT 24.8 % (42-52); MEAN CORPUSCULAR HGB 29.9 PG (27.0-31.0); MEAN CORPUSCULAR HGB CONC 32.2 G/DL (33.0-37.0); MEAN CORPUSCULAR VOLUME 92.7 FL (80.0-94.0); MEAN PLATELET VOLUME 7.1 FL (7.4-10.4); RBC DISTRIBUTION WIDTH 16.7 % (11.5-14.5); RED BLOOD CELL CT 2.67 /CUMM (4.70-6.10); WHITE BLOOD CELL COUNT 5.3 /CUMM (4.8-10.8)
[2017-07-09 09:59] LABS: PLATELET COUNT 139 /CUMM (130-400)
[2017-07-09 10:00] LABS: GRANULOCYTE % 87.8 % (42.2-75.2)
--- NOTE | 2017-07-09 12:05 | PN- Nephrology ---
Assessment/Plan Assessment: FRANCO - Likely 2/2 ATN in the setting of pre-renal azotemia + obstructive nephropathy - bland urine supportive of this. Renal function continues to worsen. Switching to hospice care. Hypernatremia - 2/2 decreased free water intake - improving. Anemia - Improved after transfusion. Suggestion: -Plans for hospice care Will see PRN Please call [phone] with ?'s Subjective Subjective: SCr up to 6.7 200cc UOP No clinical change as per family Switching to hospice care Objective Vital Signs and I&Os Vital Signs Date Time Temp Pulse Resp B/P B/P Pulse O2 O2 Flow FiO2 Mean Ox Delivery Rate 07/09 0800 Nasal 4.0L Cannula 07/09 0615 98.0 101 22 110/60 91 Venti Mask 07/09 0035 91 Venti Mask 40% 07/09 0000 91 Venti Mask 45% 07/08 2236 98.3 88 24 108/50 86 Venti Mask 40% 07/08 1600 Nasal 3.0L Cannula 07/08 1324 98.0 79 18 118/70 100 Nasal 3.0L Cannula 07/08 1317 98.9 Intake & Output 07/09 1600 07/09 0400 07/08 1600 07/08 0400 07/07 1600 07/07 0400 Intake Total 996 378 9752 1280 1700 1280 Output Total 450 350 150 200 101 150 Balance 170 050 314 3086 1599 1130 Intake, Blood 350 Product Intake, IV 620 700 927 294 3992 800 Intake, Oral 0 480 100 480 Number 5 2 Bowel Movements Output, Other 250 Output, Stool 250 1 Output, Urine 200 100 150 200 100 150 Physical Exam: Gen - OK appearing HEENT - supple, CV - RRR, no m/r/g Chest - clear, no w/r/r Abd - soft, NTND Ext - no edema Neuro - not oriented to person, place, or time Current Medications: Current Medications Sig/Jimmie Start time Last Medication Dose Route Stop Time Status Admin Acetaminophen 500 MG Q6P PRN 07/08 929 AC 07/08 PO 1026 Collagenase 1 DEN DAILY 07/06 1830 AC 07/09 TOP 1058 Dextrose/Sodium 1,000 ML Q10H 07/06 929 DC 07/09 Chloride IV 0102 Finasteride 5 MG QPM 07/05 2200 AC 07/07 PO 2044 Glycopyrrolate 200 MCG ONE ONE 07/08 2199 DC 07/08 IV 07/08 2201 2214 Iron Sucrose 200 MG Q48H 07/07 1545 AC 07/07 Sodium Chloride 100 ML IV 07/15 1559 1902 Levothyroxine Sodium 25 MCG DAILY 07/08 1330 AC 07/09 IV 1058 Levothyroxine Sodium 0.05 MG DAILY AC 07/08 1000 DC PO Memantine 5 MG BID 07/05 1000 AC 07/08 PO 0921 Morphine Sulfate 2 MG Q2P PRN 07/08 0900 07/09 IV 1118 Scopolamine HBr 1 PAT ONE ONE 07/08 2114 DC 07/08 TOP 07/08 2115 221 Results Pertinent Lab Results: Laboratory Tests 07/09 07/08 0735 0802 Chemistry Sodium (137 - 145 mmol/L) 142 142 Potassium (3.5 - 5.1 mmol/L) 5.2 H 4.9 Chloride (98 - 107 mmol/L) 110 H 110 H Carbon Dioxide (22 - 30 mmol/L) 17 L 18 L Anion Gap (5 - 16) 15 15 BUN (9 - 20 mg/dL) 105 *H 101 *H Creatinine (0.7 - 1.2 mg/dL) 6.7 *H 6.6 *H Estimated GFR (>60 ml/min) 8 L 8 L BUN/Creatinine Ratio (7 - 25 %) 15.7 15.3 Hematology CBC w Diff NO MAN DIFF REQ NO MAN DIFF REQ WBC (4.8 - 10.8 /CUMM) 5.3 6.2 RBC (4.70 - 6.10 /CUMM) 2.67 L 2.24 L Hgb (14.0 - 18.0 G/DL) 8.0 L 6.7 *L Hct (42 - 52 %) 24.8 L 20.5 L MCV (80.0 - 94.0 FL) 92.7 91.9 MCH (27.0 - 31.0 PG) 29.9 29.8 RDW (11.5 - 14.5 %) 16.7 H 17.0 H Plt Count (130 - 400 /CUMM) 139 139 MPV (7.4 - 10.4 FL) 7.1 L 6.7 L Gran % (42.2 - 75.2 %) 87.8 H 87.7 H Lymphocytes % (20.5 - 51.1 %) 9.2 L 8.9 L Monocytes % (1.7 - 9.3 %) 2.6 1.7 Eosinophils % (0 - 5 %) 0.4 1.7 Basophils % (0.0 - 2.0 %) 0 0 Absolute Granulocytes (1.4 - 6.5 /CUMM) 4.7 5.4 Absolute Lymphocytes (1.2 - 3.4 /CUMM) 0.5 L 0.6 L Absolute Monocytes (0.10 - 0.60 /CUMM) 0.1 0.1 Absolute Eosinophils (0.0 - 0.7 /CUMM) 0 0.1 Absolute Basophils (0.0 - 0.2 /CUMM) 0 0 PUBS MCHC (33.0 - 37.0 G/DL) 32.2 L 32.4 L 07/07 07/06 0740 2222 Chemistry Sodium (137 - 145 mmol/L) 146 H Potassium (3.5 - 5.1 mmol/L) 5.1 Chloride (98 - 107 mmol/L) 109 H Carbon Dioxide (22 - 30 mmol/L) 20 L Anion Gap (5 - 16) 16 BUN (9 - 20 mg/dL) 98 H Creatinine (0.7 - 1.2 mg/dL) 5.9 *H Estimated GFR (>60 ml/min) 9 L BUN/Creatinine Ratio (7 - 25 %) 16.6 Hematology CBC w Diff NO MAN DIFF REQ NO MAN DIFF REQ WBC (4.8 - 10.8 /CUMM) 7.9 8.6 RBC (4.70 - 6.10 /CUMM) 2.52 L 2.54 L Hgb (14.0 - 18.0 G/DL) 7.5 L 7.5 L Hct (42 - 52 %) 23.4 L 23.4 L MCV (80.0 - 94.0 FL) 93.1 92.4 MCH (27.0 - 31.0 PG) 29.7 29.6 RDW (11.5 - 14.5 %) 17.7 H 17.5 H Plt Count (130 - 400 /CUMM) 150 162 MPV (7.4 - 10.4 FL) 7.2 L 7.0 L Gran % (42.2 - 75.2 %) 85.6 H 87.7 H Lymphocytes % (20.5 - 51.1 %) 10.9 L 8.9 L Monocytes % (1.7 - 9.3 %) 2.0 2.7 Eosinophils % (0 - 5 %) 1.5 0.6 Basophils % (0.0 - 2.0 %) 0 0.1 Absolute Granulocytes (1.4 - 6.5 /CUMM) 6.7 H 7.6 H Absolute Lymphocytes (1.2 - 3.4 /CUMM) 0.9 L 0.8 L Absolute Monocytes (0.10 - 0.60 /CUMM) 0.2 0.2 Absolute Eosinophils (0.0 - 0.7 /CUMM) 0.1 0.1 Absolute Basophils (0.0 - 0.2 /CUMM) 0 0 PUBS MCHC (33.0 - 37.0 G/DL) 31.9 L 32.0 L Imaging/Other Studies: None new
[2017-07-09 13:57] VITALS: BP 130/60
== END 2017-07-09 14:32 | disposition hospice, home (50) | DRG 682 ==
LOC: ERH 21:40 → ERHI 07-05 00:36 → 2NA 07-05 00:36 → ENRESERV 07-06 12:35 → ENTRNSPT 07-06 13:37 → EDTRNSPT 07-06 13:49 → EDTRNSPTSTS 07-06 13:49 → CMPTRNSPT 07-06 14:06 → 2NA 07-06 14:07
PROVIDERS: Internal Medicine; Pediatrics; Student in an Organized Health Care Education/Training Program
DX: N17.0 Acute kidney failure with tubular necrosis (principal); L89.314 Pressure ulcer of right buttock, stage 4; E87.2 Acidosis; E87.0 Hyperosmolality and hypernatremia; E87.5 Hyperkalemia; I11.0 Hypertensive heart disease with heart failure; L89.324 Pressure ulcer of left buttock, stage 4; D62 Acute posthemorrhagic anemia; I50.32 Chronic diastolic (congestive) heart failure; F02.81 Dementia in other diseases classified elsewhere, unspecified severity, with behavioral disturbance; G30.1 Alzheimer's disease with late onset; R62.7 Adult failure to thrive; Z74.01 Bed confinement status; F02.80 Dementia in other diseases classified elsewhere, unspecified severity, without behavioral disturbance, psychotic disturbance, mood disturbance, and anxiety; G30.8 Other Alzheimer's disease
CPT/HCPCS: 2NAP; 2NASP; 84133; 84300; ERO; 36415; 71045; 74176; 81001; 82436; 82570; 86920; 87045; 87086; 93005; 93010; 96360; 96361; J1644; J1756; J7042; P9016

== ENCOUNTER 2017-07-09 14:32 | Inpatient (IN) | payer OTHER ==
--- NOTE | 2017-07-09 16:06 | History & Physical ---
General Information and HPI Chief Complaint: admit to hospice Source of Information: family, old records Exam Limitations: unable to give history, clinical condition, confusion, dementia Associated Symptoms: acute confusion, agitation, anxiety, secretions,pain History of Present Illness: Pt. is an 82 year-old male with PMHx of CAD, bladder Ca, BPH, DM, BCC with refusal of treatment, advanced Alzheimer's brought to the ED on 07/04/17 with progressive decline in function, decreased oral intake, increased irritability/ agitation. 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 Pt was transfused with 2u PRBC for Hgb 6.7 at lowest. He has diarrhea requiring rectal tube, c. diff negative. Due to worsening kidney function and continued poor oral intake, family has made decision for hospice given advanced dementia and poor prognosis. Pt is agitated and resistant with care attempts including skin care and attempts to suction orally. Family reports pt has had poor reaction in past to Morphine, causing agitation. Allergies/Medications Allergies: Coded Allergies: Penicillins (SWELLING 05/26/16) Past History Medical History Blood Transfusion Hx: Yes Neurological: Alzheimer's disease EENT: NONE Cardiovascular: CHF, hypertension, aortic aneurysm w/o f/u TIA CAD s/p balloon angioplasty stent Respiratory: NONE Gastrointestinal: NONE Hepatic: NONE Renal: bladder cancer s/p tumor resection BPH s/p TURP 2013 Musculoskeletal: gout Psychiatric: NONE Endocrine: diabetes, hypothyroidism Blood Disorders: NONE Cancer(s): NONE MANAGER DRIVE/Reproductive: NONE History of MRSA: No History of VRE: No History of CDIFF: No Surgical History Surgical History: cad s/p balloon angioplasty stent bladder cancer s/p resection bph s/p TURP 2013 Past Family/Social History Family History: Unknown Psychosocial History: Pt is , Dtr Michela is POA (4 dtrs), he was living in the community with hired and family assistance. Functional Ability: dependent for ADLs/IADLs Review of Systems Review of Systems Constitutional: Reports: see HPI. Exam & Diagnostic Data Last 24 Hrs of Vital Signs/I&O T-98.1; Hr-92; RR-20; BP-130/60 O2sat 92% Physical Exam General Appearance Alert, ill-appearing elderly male, NAD Skin covered lesion to back of head and coccyx. Agitated when attempt to view so left alone HEENT Lesion to back of head Cardiovascular Unable to hear heart sounds due to amount of tracheal and chest congestion. Radial pulse regular Lungs Significant copious secretions Abdomen Soft, No Tenderness Neurological alert, unable to follow commands, slight twitching of extremtities noted. Extremities No Clubbing, No Cyanosis, No Edema Reproductive (MALE) scrotal edema. Levine catheter in place Rectal rectal tube with liquid brown stool Last 24 Hrs of Labs/Danny: 07/09/17: CBC with wbc 5.3; Hgb 8.0; Hct 24.8; Chem with K 5.2; Cl 110; CO2 17; Bun 105; Cr 6.7 07/04/17: urinalysis negative 07/07/17: C. Difficile negative Diagnostic Data CXR Results 07/04/17: MPRESSION: No acute pulmonary findings. Other Results Head CT 07/04/17: IMPRESSION: 1. No acute intracranial pathology. Evaluation is limited by motion artifact. 2. A small left upper parietal scalp hematoma is suspected, without underlying fracture. Please correlate clinically 07/04/17: abd/pelvis CT:IMPRESSION: 1. No acute inflammatory changes of the bowel. No wall thickening. Diverticulosis without evidence of diverticulitis. 2. Wall thickening of the bladder with trabeculation and diverticula. This may be associated with a bladder outlet obstruction. Cystitis not excluded. The prostate is enlarged and heterogeneous. 3. Abdominal aortic aneurysm, measuring 4.6 cm in AP dimension. This demonstrates a slight increase compared to the previous study from 2014, measuring 4.3 cm at that time. Assessment/Plan Assessment: Pt. is an 82-year-old male with acute renal failure as a result (in part) of failure to thrive from advanced dementia, urinary outlet obstruction due to BPH requiring levine catheter and wound to head and coccyx now admitted to hospice care. Plan: Change morphine to dilaudid 0.4mg every 2 hrs as needed for pain/dyspnea For copious secretions, cont. scopolamine patch and add Robinul 400mcg scheduled every 4 hrs, TRC Ativan 1mg every 6 hrs ATC and every 4 hrs as needed for anxiety Haldol 0.5mg SC every 4 hrs as needed for agitation. Discussed with nursing and daughters.
[2017-07-10 10:49] VITALS: BP 112/50
--- NOTE | 2017-07-10 12:45 | PN- Hospice ---
Subjective Subjective: Patient lying comfortably in bed with no apparent distress. daugher bedside. Review of Systems Constitutional: Denies: no symptoms. Objective Last 24 Hrs of Vital Signs/I&O Vital Signs Date Time Temp Pulse Resp B/P B/P Pulse O2 O2 Flow FiO2 Mean Ox Delivery Rate 07/10 1202 Nasal 4.0L Cannula 07/10 1049 98.3 97 19 112/50 87 Nasal 4.0L Cannula 07/10 0800 Nasal 4.0L Cannula 07/10 0000 Nasal 4.0L Cannula 07/09 1815 Nasal 5.0L Cannula 07/09 1600 Nasal 4.0L Cannula Intake & Output 07/10 1600 07/10 0800 07/10 0000 Intake Total 40 12 Output Total 150 Balance 40 -138 Intake, IV 40 12 Output, Urine 150 Physical Exam: Physical Exam General Appearance Alert, ill-appearing elderly male, NAD Skin covered lesion to back of head and coccyx. Agitated when attempt to view so left alone HEENT Lesion to back of head Cardiovascular Unable to hear heart sounds due to amount of tracheal and chest congestion. Radial pulse regular Lungs Significant copious secretions Abdomen Soft, No Tenderness Neurological alert, unable to follow commands, slight twitching of extremtities noted. Extremities No Clubbing, No Cyanosis, No Edema Reproductive (MALE) scrotal edema. Levine catheter in place Rectal rectal tube with liquid brown stool Current Medications: Current Medications Sig/Jimmie Start time Last Medication Dose Route Stop Time Status Admin Acetaminophen 1,000 MG Q6P PRN 07/09 1500 AC IV Glycerin/Mineral Oil 1 DEN Q8P PRN 07/09 1500 AC TOP Glycopyrrolate 400 MCG Q4 07/09 1800 AC 07/10 IV 1044 Haloperidol 0.5 MG Q4P PRN 07/09 1500 AC SC Hydromorphone HCl 0.4 MG Q2P PRN 07/09 1500 AC IV Lorazepam 1 MG Q6 07/09 1800 AC 07/10 IV 1042 Lorazepam 1 MG Q4P PRN 07/09 1500 AC IV Scopolamine HBr 1 PAT Q72 07/12 1000 AC 07/09 TOP 1656 Scopolamine HBr 1 PAT .STK-MED ONE 07/09 1643 DC [facility] 07/09 1644 Assessment/Plan Assessment/Recommendations: Acute renal failure failure to thrive advanced dementia urinary outlet obstruction 2/2 BPH. Problem List: 1. BPH (benign prostatic hyperplasia) Attending MD Review Statement Attending Statement Attending MD Statement: examined this patient, discussed with family, reviewed EMR data (avail), discussed with nursing, discussed with case mgmt Attending Assessment/Plan: Assessment: Pt. is an 82-year-old male with acute renal failure as a result (in part) of failure to thrive from advanced dementia, urinary outlet obstruction due to BPH requiring levine catheter and wound to head and coccyx now admitted to hospice care. Plan: Continue dilaudid 0.4mg every 2 hrs as needed for pain/dyspnea For copious secretions, cont. scopolamine patch and Robinul 400mcg scheduled every 4 hrs, TRC Ativan 1mg every 6 hrs ATC and every 4 hrs as needed for anxiety Haldol 0.5mg SC every 4 hrs as needed for agitation. Discussed with family.
--- NOTE | 2017-07-12 12:28 | Discharge Summary ---
Visit Information Visit Dates Admission Date: 07/09/17 Discharge Date: 07/10/17 Hospital Course Course Attending Physician: Ana Luisa Cruz MD Primary Care Physician: [facility] Course: Pt. is an 82-year-old male with acute renal failure as a result (in part) of failure to thrive from advanced dementia, urinary outlet obstruction due to BPH requiring levine catheter and wound to head and coccyx, admitted to hospice care. He was kept comfortable with as needed dilaudid for dyspnea and pain, scheduled ativan for anxiety, and scopolamine TD and Robinul IV for secretions, until he peacefully. Allergies: Coded Allergies: Penicillins (SWELLING 05/26/16) Disposition Summary Disposition Principal Diagnosis: Acute renal failure Failure to thrive Alzheimer's disease Additional Diagnosis: Benign prostatic hypertrophy with obstruction, requiring levine catheter Discharge Disposition: Discharge Instructions General Discharge Information Code Status: Hospice Patient's Diet: N/A Patient's Activity: N/A Follow-Up Instructions/Appts: N/A Copies To: Eli Ashton MD
== END 2017-07-10 21:30 | disposition expired | DRG 683 ==
LOC: 2NA 14:32
DX: N17.9 Acute kidney failure, unspecified (principal); N13.8 Other obstructive and reflux uropathy; L89.310 Pressure ulcer of right buttock, unstageable; I95.9 Hypotension, unspecified; E11.22 Type 2 diabetes mellitus with diabetic chronic kidney disease; E87.5 Hyperkalemia; L89.320 Pressure ulcer of left buttock, unstageable; E86.0 Dehydration; Z51.5 Encounter for palliative care; R62.51 Failure to thrive (child); G30.9 Alzheimer's disease, unspecified; F02.80 Dementia in other diseases classified elsewhere, unspecified severity, without behavioral disturbance, psychotic disturbance, mood disturbance, and anxiety; I25.10 Atherosclerotic heart disease of native coronary artery without angina pectoris; Z85.51 Personal history of malignant neoplasm of bladder; N40.1 Benign prostatic hyperplasia with lower urinary tract symptoms; N18.3 Chronic kidney disease, stage 3 (moderate); R45.1 Restlessness and agitation; F41.9 Anxiety disorder, unspecified; E03.9 Hypothyroidism, unspecified; R41.0 Disorientation, unspecified; I12.9 Hypertensive chronic kidney disease with stage 1 through stage 4 chronic kidney disease, or unspecified chronic kidney disease; I71.9 Aortic aneurysm of unspecified site, without rupture; Z95.5 Presence of coronary angioplasty implant and graft
CPT/HCPCS: J0131; J1630